=== PATIENT | female | born 1945 | race Caucasian/White ===

== ENCOUNTER 2019-05-20 20:00 | Outpatient (CLI) | payer MEDICARE, OTHER, SELFPAY | END 2019-05-20 20:01 | disposition home or self-care (01) | LOC: SLEEP 05-21 09:20 | PROVIDERS: Family Provider Internal Medicine; PCP Internal Medicine; Visit Provider Internal Medicine | DX: G47.33 Obstructive sleep apnea (adult) (pediatric) (principal) | CPT/HCPCS: 95810; 95811 ==

== ENCOUNTER 2019-06-12 10:15 | Outpatient (CLI) | payer MEDICARE, OTHER, SELFPAY ==
--- NOTE | 2019-06-12 10:23 | XR_ITS ---
WS: [id number] XR chest 2V* [id number] REASON FOR EXAM: asthma FINDINGS: The heart was essentially normal. Arteriosclerotic changes in the arch the aorta were noted . The lung shane are well aerated. There was no hyperaeration or air-trapping changes seen. No pneumon ia, pleural effusion, pulmonary edema, or mass effect. Findings today are similar to a August 26, 2015. The hilum and apices were normal. No osseous abnormalities. XR/XR chest 2V* [id number] IMPRESSION: Negative chest with arteriosclerotic changes.
[2019-06-12 11:02] LABS: Basophils % 0.1 %; Hematocrit 40.2 % (37.0-47.0); Hemoglobin 12.8 g/dL (11.5-15.3); Lymphocytes # 1.4 10^3/uL (0.8-4.8); Lymphocytes % 17.9 %; Mean Corpuscular HGB Conc 31.8 g/dL (30.0-36.0); Mean Corpuscular Hemoglobin 28.8 pg (28.0-34.0); Mean Corpuscular Volume 90.3 fL (81-99); Mean Platelet Volume 9.5 fL (7.4-10.4); Monocytes # 0.7 10^3/uL (0.2-0.9); Monocytes % 8.5 %; Neutrophils # 5.8 10^3/uL (1.8-7.7); Nucleated Red Blood Cells % 0 %; Platelet Count 207 10^3/cmm (130-400); Red Blood Count 4.45 10^6/uL (4.1-5.3); Red Cell Distribution Width 14.1 % (12.1-15.1); White Blood Count 7.9 10^3/uL (4.0-10.0)
[2019-06-13 17:02] LABS: Immunoglobulin E 106 kU/L (<OR=114)
== END 2019-06-12 10:16 | disposition home or self-care (01) ==
LOC: RAD 10:18
PROVIDERS: Family Provider Internal Medicine; PCP Internal Medicine; Visit Provider Internal Medicine Critical Care Medicine
DX: J45.909 Unspecified asthma, uncomplicated (principal)
CPT/HCPCS: 71046; 82785; 85025

== ENCOUNTER 2019-06-19 11:05 | Outpatient (CLI) | payer MEDICARE, OTHER, SELFPAY | END 2019-06-19 11:06 | disposition home or self-care (01) | LOC: ONCMED 11:06 | PROVIDERS: Family Provider Internal Medicine; PCP Internal Medicine; Visit Provider Internal Medicine Hematology & Oncology | DX: Z01.89 Encounter for other specified special examinations (principal) ==

== ENCOUNTER 2019-06-19 11:09 | Outpatient (CLI) | payer MEDICARE, OTHER, SELFPAY ==
--- NOTE | 2019-06-19 11:20 | MM_ITS ---
WS: [id number] BILATERAL DIGITAL DIAGNOSTIC MAMMOGRAM MAMMOGRAPHY WITH CAD CLINICAL INFORMATION: HX OF BREAST CA COMPARISON: June 12, 2018 TECHNIQUE: Bilateral CC, MLO, and ML views. FINDINGS: Scattered fibroglandular densities bilaterally. Stable lucent and punctate calcifications left breast . Stable parenchymal scarring left breast from prior lumpectomy. No suspicious focal mass, asymmetry, calcifications, or architectural distortion. No evidence of kristina gnancy. MM/[place] [id number] IMPRESSION: BI-RADS: 2-Benign FOLLOW UP: 1 Year Follow-up Recommend return to annual diagnostic mammography.
== END 2019-06-19 11:10 | disposition home or self-care (01) ==
LOC: RADSHAW 11:09
PROVIDERS: Family Provider Internal Medicine; PCP Internal Medicine; Visit Provider Internal Medicine
DX: Z85.3 Personal history of malignant neoplasm of breast (principal)
CPT/HCPCS: 77066

== ENCOUNTER → 2019-07-30 14:34 | Outpatient (BNVA) | payer MEDICARE, OTHER, SELFPAY | PROVIDERS: Family Provider Internal Medicine; PCP Internal Medicine; Visit Provider Internal Medicine Rheumatology | DX: M19.041 Primary osteoarthritis, right hand (principal); M19.042 Primary osteoarthritis, left hand; M81.0 Age-related osteoporosis without current pathological fracture; Z79.899 Other long term (current) drug therapy; M79.7 Fibromyalgia | CPT/HCPCS: 99204 ==

== ENCOUNTER 2019-08-13 12:38 | Outpatient (CLI) | payer MEDICARE, OTHER, SELFPAY ==
--- NOTE | 2019-08-13 12:53 | XR_ITS ---
WS: [id number] RIGHT FOOT: 3 VIEW(S) TECHNIQUE: AP, oblique and lateral. HISTORY: osteoarthritis COMPARISON: None available. Joint space narrowing with osteophytes at the tarsometatarsal joints and at the IP joint. No erosions . Mild osteopenia. Normal tarsal/metatarsal alignment. No soft tissue abnormality or bone destruction. XR/XR foot RT min 3V* [id number] IMPRESSION: Osteoarthritis. Most significant on the tarsometatarsal joint line.
--- NOTE | 2019-08-13 12:53 | XR_ITS ---
WS: [id number] DEXA (DUAL ENERGY X-RAY ABSORPTIOMETRY) Bone mineral density was performed using a Kiwi machine. HISTORY: osteoporosis COMPARISON: 09/02/2014 Lumbar spine BMD (L1-L4): 1.078 g/cm2 T score: -0.9 Z score: 0.6 Total hip BMD: Left: 0.903 g/cm2. T score: -0.8 Z score: 0.7 Right: 0.907 g/cm2. T score: -0.8 Z score: 0.7 10 year probability of a major osteoporotic fracture is 22%. Compared to the prior study from 09/02/2014. Lumbar spine bone mineral density has decreased by 5.1%. Bilateral hips bone mineral density has decreased by 2.4%. XR/XR DEXA axial skeleton* [id number] IMPRESSION: NORMAL BONE MINERAL DENSITY based upon the WHO classification for females. Significant decrease in bone mineral density of the lumbar spine and hips since the prior study.
--- NOTE | 2019-08-13 12:53 | XR_ITS ---
WS: [id number] RIGHT HAND: 3 VIEW(S) TECHNIQUE: PA, oblique and lateral. HISTORY: osteoarthritis COMPARISON: 09/13/2016 No acute fracture or dislocation. Advanced degenerative changes at the IP joints, most significant at the second, third and fourth DIP joints. Osteoarthritic changes at the first carpometacarpal joint with a cyst in the lunate. No erosi ons at the metacarpal heads. Mild diffuse osteopenia. XR/XR hand RT min 3V* [id number] IMPRESSION: Advanced osteoarthritis. No significant progression since 2017.
--- NOTE | 2019-08-13 12:53 | XR_ITS ---
WS: [id number] LEFT HAND: 3 VIEW(S) TECHNIQUE: PA, oblique and lateral. HISTORY: osteoarthritis COMPARISON: None available. No acute fracture or dislocation. Diffuse osteopenia. Severe degenerative changes at the first carpometacarpal joint. No subluxations. No erosions. XR/XR hand LT min 3V* [id number] IMPRESSION: Severe osteoarthritis involving the interphalangeal joints and the first carpom etacarpal joint.
--- NOTE | 2019-08-13 12:53 | XR_ITS ---
WS: [id number] LEFT FOOT: 3 VIEW(S) TECHNIQUE: AP, oblique and lateral. HISTORY: osteoarthritis COMPARISON: None available. No acute fracture or dislocation. Mild narrowing of the tarsometatarsal joint line. Joint space narrowing with osteopenia. Interphalang eal joint space narrowing. No soft tissue abnormality or bone destruction. XR/XR foot LT min 3V* [id number] IMPRESSION: Mild osteoarthritis.
== END 2019-08-13 12:39 | disposition home or self-care (01) ==
LOC: RADWPI 12:43
PROVIDERS: Family Provider Internal Medicine; PCP Internal Medicine; Visit Provider Internal Medicine Rheumatology
DX: M81.0 Age-related osteoporosis without current pathological fracture; M19.071 Primary osteoarthritis, right ankle and foot; M19.042 Primary osteoarthritis, left hand; M19.041 Primary osteoarthritis, right hand; M19.072 Primary osteoarthritis, left ankle and foot
CPT/HCPCS: 73130; 73630; 77080

== ENCOUNTER → 2019-08-14 13:57 | Outpatient (BNVA) | payer MEDICARE, OTHER, SELFPAY | PROVIDERS: Family Provider Internal Medicine; PCP Internal Medicine; Visit Provider Specialist | DX: M25.519 Pain in unspecified shoulder (principal) | CPT/HCPCS: 73030 ==

== ENCOUNTER 2019-09-10 10:08 | Outpatient (CLI) | payer MEDICARE, OTHER, SELFPAY ==
--- NOTE | 2019-09-10 10:40 | XR_ITS ---
WS: [id number] LATERAL LUMBAR SPINE: 3 view. Lateral radiographs are performed in upright neutral, flexion and extension to the patient's toleranc e. HISTORY: LOW BACK PAIN COMPARISON: None available. L1 and L2 retrolisthesis by 2 mm. No significant change with flexion and extension. L3 anterolisthesis by 2.8 mm on neutral. During flexion anterolisthesis increases to 5.7 mm and retur ns to 3.2 mm on extension. L4 anterolisthesis by 6.5 mm on neutral. Increases to 8.0 mm on flexion and 5.0 mm on extension. Multilevel mild degenerative disc disease and disc space narrowing with facet arthritis. No fractures . Scattered calcifications within the aorta. XR/XR lumbar spine f/e only [id number] IMPRESSION: 1. Flexion and extension instability at L3 and L4. 2. Mild facet joint arthritis and disc space narrowing. 3. No fracture.
== END 2019-09-10 10:09 | disposition home or self-care (01) ==
LOC: RADWPI 10:16
PROVIDERS: Family Provider Internal Medicine; PCP Internal Medicine; Visit Provider Nurse Practitioner
DX: M54.5 Low back pain (principal); M53.2X6 Spinal instabilities, lumbar region
CPT/HCPCS: 72120

== ENCOUNTER 2019-09-12 09:01 | Outpatient (CLI) | payer MEDICARE, OTHER, SELFPAY ==
--- NOTE | 2019-09-12 | CT_ITS ---
WS: [id number] CT LUMBAR SPINE, noncontrast. HISTORY: BACK PAIN TECHNIQUE: Contiguous 2.5 mm axial imaging are performed. Sagittal and coronal reformats are submitte d and reviewed. All CT scans at [facility] use at least one of these dose optimization te chniques: automated exposure control; mA and/or kV adjustment per patient size (includes targeted exa ms where dose is matched to clinical indication); or iterative reconstruction. IV contrast: None DLP: 2162.29 mGy.cm COMPARISON: None available. Mild LEFT convex curvature the lumbar spine. L2-3 and L4 anterolisthesis by 3.2 mm. There is very min imal disc space narrowing throughout the lumbar spine. No fractures. L1-2: Normal. L2-3: Mild osteophytic ridging and diffuse annular disc bulging. Mild encroachment upon the ventral t hecal sac without significant stenosis. L3-4: Moderate annular disc bulging and osteophytic ridging. Ligamentum flavum hypertrophy and facet joint arthritis. Mild central and subarticular recess stenosis. L4-5: Diffuse annular disc bulging and mild osteophytic ridging. Ligamentum flavum and facet joint ar thritis. Severe central and subarticular recess stenosis. Mild bilateral foraminal stenosis. L5-S1: Mild annular disc bulging with a shallow disc protrusion and osteophytic ridging. Mild central stenosis. Osteophytes encroach into the LEFT foramen causing mild foraminal narrowing. Marked change s involving the facet joints of arthritis. Heavy calcification within the abdominal aorta. No aneurysm. CT/CT lumbar spine wo con* [id number] IMPRESSION: 1. Severe central and bilateral subarticular recess stenosis at L4-5. 2. Mild central and bilateral subarticular recess stenosis at L3-4. Greatest e ncroachment into the RIGHT subarticular recess. 3. Mild LEFT foraminal stenosis at L5-S1 due to disc and osteophyte disease. 4. L3 and L4 anterolisthesis by 3.2 mm. 5. Severe facet joint arthritis bilaterally most significant at L4-5 and L5-S1 .
== END 2019-09-12 09:02 | disposition home or self-care (01) ==
PROVIDERS: Family Provider Internal Medicine; PCP Internal Medicine; Visit Provider Nurse Practitioner
DX: M54.5 Low back pain (principal); M48.061 Spinal stenosis, lumbar region without neurogenic claudication; M25.78 Osteophyte, vertebrae
CPT/HCPCS: 72131

== ENCOUNTER 2019-09-24 08:03 | Outpatient (CLI) | payer MEDICARE, OTHER, SELFPAY ==
[2019-09-24 08:26] LABS: Basophils % 0.5 %; Eosinophils # 0.1 10^3/uL (0.0-0.8); Eosinophils % 2.4 %; Hematocrit 40.9 % (37.0-47.0); Hemoglobin 12.6 g/dL (11.5-15.3); Lymphocytes # 1.4 10^3/uL (0.8-4.8); Lymphocytes % 38.7 %; Mean Corpuscular HGB Conc 30.8 g/dL (30.0-36.0); Mean Corpuscular Hemoglobin 28.6 pg (28.0-34.0); Mean Platelet Volume 9.1 fL (7.4-10.4); Monocytes # 0.2 10^3/uL (0.2-0.9); Monocytes % 6.2 %; Neutrophils # 1.9 10^3/uL (1.8-7.7); Neutrophils % 51.7 %; Nucleated Red Blood Cells % 0 %; Platelet Count 167 10^3/cmm (130-400); Red Cell Distribution Width 16.2 % (12.1-15.1); White Blood Count 3.7 10^3/uL (4.0-10.0)
[2019-09-24 08:50] LABS: Alanine Aminotransferase 22 U/L (0-33); Albumin Level 4.1 g/dL (3.5-5.2); Alkaline Phosphatase 67 IU/L (35-105); Anion Gap 18.1 (5-19); Aspartate Amino Transferase 15 U/L (0-32); Blood Urea Nitrogen 14 mg/dL (8-23); Calcium 9.5 mg/dL (8.5-10.5); Carbon Dioxide 24 mmol/L (22-29); Chloride 103 mmol/L (98-107); Globulin 3.2 g/dL (1.3-4.6); Glucose 134 mg/dL (65-115); Osmolality Calculated 290 mOsm/kg (285-295); Potassium 4.1 mmol/L (3.5-5.1); Sodium 141 mmol/L (136-145); Total Bilirubin 0.4 mg/dL (0.15-1.2); Total Protein 7.3 g/dL (6.6-8.7)
--- NOTE | 2019-09-24 17:43 | ONC FU_ITS ---
Dr. Godinez follow up note Patient: Yanira Cespedes Unit #: [id number]: 1945 Dicatated By: Eran Godinez M.D.Date of Visit:Sep 24, 2019 Onc Med Follow-up/Prog Note History of Present Illness: This is 73 year old woman with invasive ductal carcinoma of the left breast, stage IA (T1b, N0, M0), ER/FL positive and HER-2/mayuri negative. She had presented with an abnormal routine mammogram on 03/24/14. There were 2 areas of abnormal calcifications at 12:00 and 1: 00 position of the left breast. The biopsy of the dominant lesion was performed on 06/06/2014. 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 On 06/26/2014 she was taken to surgery by Dr. Alvarez for left breast lumpectomy and excisional biopsy of the additional breast focus, as well as left axillary sentinel lymph node biopsy. The surgical pathology showed 8mm invasive ductal carcinoma with multifocal tumor growth, and mixed ductal and lobular pattern. Anterior margins were involved. One sentinel lymph node biopsy was negative for metastatic disease. An additional breast focus excisional biopsy was benign. On 07/10/14 she underwent re-excision, and no further malignancy was identified. Her surgery was complicated with seroma aspiration, and mastitis, requiring antibiotics. She was first seen by Dr. Mercado on 07/24/2014. Her Oncotype DX score returned 14, corresponding to 9% risk of distant recurrence after completion of hormonal therapy in the next 10 years. No adjuvant chemotherapy was recommended. The patient received adjuvant radiation treatment, completed in September 2014. She began on adjuvant Arimidex therapy in July of 2014. DEXA scan normal on 09/02/2014. Her Arimidex was stopped in November 2015 because of joint pain and vaginal bleeding. She did have followup with Dr. Saavedra for vaginal bleeding. She had a cervical biopsy and Dr. Saavedra recommended having transvaginal pelvic ultrasounds every 3 months, although she has not had these done. She has had no further vaginal bleeding.And Arimidex was restarted on 04/29/2017 Underwent hysterectomy No oophorectomy on 03/29/2017 and it showed cystocele Follow-up mammogram done on June 19, 2019 showed BI-RADS 2, benign Came for follow-up, denies any specific complaints except chronic shoulder pain and back pain but no worsening, no hot flashes, no new symptoms tolerating Arimidex/vitamin D/calcium well otherwise Medications: Amitiza 1 (24 mcg) Capsule Oral daily, Anastrozole 1 Tablet (of 1 mg) Oral daily, Antipyrine-Benzocaine 1 (5.5-1.4 %) Solution Otic daily, Atrovent 1 (0.03 %) Solution Nasal daily, Brovana Nebulization solution Inhalation daily, Budesonide 1 (0.5 mg/2mL) Suspension Inhalation daily, Calcium 1 (500 mg) Tablet Oral b.i.d., Citalopram Hydrobromide 1 (10 mg) Tablet Oral daily, Claritin 1 (10 mg) Capsule Oral daily, Dexamethasone Sodium Phosphate Injection, Docusate Sodium 1 Tablet (of 100 mg) Oral daily, flax seed and omega 1 Tablet daily, Flax Seed Oil 1 (1000 mg) Capsule Oral daily, Gabapentin (300 mg) Capsule Oral Take as Directed, Ipratropium [place] 1 (0.03 %) Solution Nasal daily, Lidocaine HCl 1.5 mL (of 1 %) Injection, Losartan Potassium 1 Tablet (of 50 mg) Oral daily, Montelukast Sodium 1 (10 mg) Tablet Oral at bedtime PRN, Mucus Relief ER Tablet SR 12 HR Oral daily PRN, NexIUM 1 (40 mg) Capsule Delayed Release Oral daily, Nortriptyline HCl 1 (25 mg) Capsule Oral daily, [place] 3 1 (1000 mg) Capsule Oral daily, oxyCODONE-Acetaminophen 0.5 - 1 Tablet (of 5-325 mg) Oral t.i.d., ProAir HFA Aerosol, solution Inhalation, Probiotic 1 Capsule Oral daily, Ropivacaine HCl 1.5 mL (of 5 mg/mL) Injection, Triamcinolone Acetonide Cream Topical PRN, Ventolin HFA 1 (108 (90 base) mcg/act) Aerosol, solution Inhalation four times a day PRN, Verapamil HCl ER 1 (180 mg) Tablet, controlled release Oral daily Allergies: Codeine and PCN. Review of Systems: Constitutional - Appetite is good and weight is stable. No fever, chills, or night sweats. Patient reports frequent hot flashes. Energy level is fair, ENMT - No sinus congestion/drainage. No mouth sores. No sore throat or difficulty swallowing, Hematologic/Lymphatic - No abnormal bruising or bleeding, Respiratory - No shortness of breath. No cough. No pleuritic pain or hemoptysis, Cardiovascular - No angina pain. No palpitations, Gastrointestinal - No nausea or vomiting. No heartburn or acid reflux. No diarrhea or constipation. No blood in the stool or black stools, Genitourinary (F) - No dysuria or hematuria. No urinary frequency. No urgency or incontinence, Musculoskeletal - No joint or bone pain, Neurologic - No headache , occasional dizziness. No numbness/paresthesias or other focal neurologic symptoms, Psychiatric - No anxiety or depression. No insomnia. Vital Signs: Performed on Sep 24, 2019 09:06 Height - 62.00 in Weight - 167.0 lbs (HIGH) BSA - 1.77 sq.m BMI - 30.54 (HIGH) Temperature - 98.3 F (LOW) Pulse - 86 /min Respiration - 22 /min BP - 131/78 mm(hg) O2 Sat - 96 % Pain - 8 Performance Status: 1 - No physically strenuous activity, but ambulatory and able to carry out light or sedentary work (e.g. office work, light house work). (ECOG) Physical Examination: Respiratory - Lungs are clear, Cardiovascular - Regular rate and rhythm of heart, Gastrointestinal - Abdomen soft, bowel sounds present, Extremities - No visible edema. Lab/Imaging: Impression: 1. Patient with low-grade invasive carcinoma of the left breast, stage IA(T1b, N0, M0), ER/FL positive, and HER-2 negative. She underwent lumpectomy with sentinel lymph node biopsy on 06/26/2014, followed by reexcision on 07/10/14 which was negative for residual malignancy. Her Oncotype DX score returned low at 14, corresponding to 9% risk of distant recurrence after completion of hormonal therapy in the next 10 years. No adjuvant chemotherapy was recommended. 2. She was given radiation to the left breast, completed in September 2014. 3. Hormonal therapy with aromatase inhibitors for 5 years, Arimidex 1 mg daily began in July 2014.Patient did not take Arimidex from November 2015 till April 2017. So there was a 16 months gap so in that case she will finish her 5 years of hormonal therapy in January 2021 instead of July 2019 Baseline bone density was normal. Her other medical illnesses include: 4. Hypertension. 5. Hyperlipidemia. 6. COPD. 7. GERD. 8. Degenerative arthritis. 9. Fibromyalgia. 10. Anxiety/depression. When seen her in November 2015, she had reported significant increase in musculoskeletal pain. At that time she was also having vaginal bleeding. I did have her stop Arimidex. It is unclear to what extent the joint pain may have improved since she's been off the medication. She did undergo right total knee arthroplasty in March. She has had a good recovery from that surgery. 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 Patient did not take Arimidex for about 1 year and last month on April, she was restarted on Arimidex and now she is tolerating well. Plan: Discussed with patient regarding her labs white blood count 3.7 hemoglobin 12.6 crit 40.9 platelets 167,000 ANC 1900 CMP within normal limits and follow-up mammogram which was benign Clinically, patient is doing well, with no signs symptom suggestive of recurrence of disease. Tolerating adjuvant therapy with Arimidex/vitamin D/calcium well. Will continue with same and she will return to clinic in 6 months with CBC CMP Mild leukopenia, considering her age could be due to underlying myelodysplasia, will continue to monitor. Signed By: Eran Godinez M.D. <<Signature on File>>
== END 2019-09-24 08:04 | disposition home or self-care (01) ==
LOC: ONCMED 08:07
PROVIDERS: PCP Internal Medicine; Visit Provider Internal Medicine Hematology & Oncology
DX: C50.412 Malignant neoplasm of upper-outer quadrant of left female breast (principal); Z17.0 Estrogen receptor positive status [ER+]; Z79.811 Long term (current) use of aromatase inhibitors; I10 Essential (primary) hypertension; E78.5 Hyperlipidemia, unspecified; J44.9 Chronic obstructive pulmonary disease, unspecified; K21.9 Gastro-esophageal reflux disease without esophagitis; M19.90 Unspecified osteoarthritis, unspecified site; M79.7 Fibromyalgia; F41.8 Other specified anxiety disorders
CPT/HCPCS: 36415; 80053; 85025; 99214

== ENCOUNTER 2020-03-03 08:29 | Outpatient (RCR) | payer MEDICARE, OTHER, SELFPAY | END 2020-03-09 23:59 | disposition home or self-care (01) | LOC: SPT 08:29 | PROVIDERS: PCP Internal Medicine; Referring Provider Specialist; Visit Provider Specialist | DX: R42 Dizziness and giddiness (principal) | CPT/HCPCS: 95992; 97162 ==

== ENCOUNTER 2020-03-10 06:00 | Outpatient (RCR) | payer MEDICARE, OTHER, SELFPAY | END 2020-04-09 23:59 | disposition home or self-care (01) | LOC: SPT 06:00 | PROVIDERS: PCP Internal Medicine; Referring Provider Specialist; Visit Provider Specialist | DX: R42 Dizziness and giddiness (principal) | CPT/HCPCS: 97112 ==

== ENCOUNTER 2020-04-21 06:00 | Outpatient (RCR) | payer MEDICARE, OTHER, SELFPAY | END 2020-05-10 23:59 | disposition home or self-care (01) | LOC: SPT 06:00 | PROVIDERS: PCP Internal Medicine; Referring Provider Specialist; Visit Provider Specialist | DX: R42 Dizziness and giddiness (principal) | CPT/HCPCS: 97112 ==

== ENCOUNTER 2020-05-11 13:17 | Outpatient (CLI) | payer MEDICARE, OTHER, SELFPAY ==
[2020-05-11 14:16] LABS: Basophils % 0.6 %; Eosinophils # 0.2 10^3/uL (0.0-0.8); Eosinophils % 3.3 %; Hematocrit 39.4 % (37.0-47.0); Hemoglobin 12.2 g/dL (11.5-15.3); Lymphocytes # 1.3 10^3/uL (0.8-4.8); Lymphocytes % 24.3 %; Mean Corpuscular Volume 90.4 fL (81-99); Mean Platelet Volume 8.9 fL (7.4-10.4); Monocytes # 0.5 10^3/uL (0.2-0.9); Monocytes % 10.3 %; Neutrophils # 3.14 10^3/uL (1.8-7.7); Neutrophils % 60.9 %; Nucleated Red Blood Cells % 0 %; Platelet Count 200 10^3/cmm (130-400); Red Blood Count 4.36 10^6/uL (4.1-5.3); Red Cell Distribution Width 15.9 % (12.1-15.1); White Blood Count 5.2 10^3/uL (4.0-10.0)
[2020-05-11 15:07] LABS: Alanine Aminotransferase 15 U/L (0-33); Albumin Level 4.2 g/dL (3.5-5.2); Alkaline Phosphatase 82 IU/L (35-105); Anion Gap 11.3 (5-19); Aspartate Amino Transferase 13 U/L (0-32); Blood Urea Nitrogen 17 mg/dL (8-23); Calcium 9.3 mg/dL (8.5-10.5); Carbon Dioxide 28 mmol/L (22-29); Chloride 102 mmol/L (98-107); Globulin 3.1 g/dL (1.3-4.6); Glucose 93 mg/dL (65-115); Osmolality Calculated 285 mOsm/kg (285-295); Potassium 4.3 mmol/L (3.5-5.1); Sodium 137 mmol/L (136-145); Total Bilirubin 0.3 mg/dL (0.15-1.2); Total Protein 7.3 g/dL (6.6-8.7)
[2020-05-11 15:12] LABS: Erythrocyte Sedimentation Rate 30 mm/hr (0-15)
--- NOTE | 2020-05-11 16:59 | ONC FU_ITS ---
Dr. Godinez follow up note Patient: Yanira Cespedes Unit #: [id number]: 1945 Dicatated By: Eran Godinez M.D.Date of Visit:May 11, 2020 Onc Med Follow-up/Prog Note History of Present Illness: This is 73 year old woman with invasive ductal carcinoma of the left breast, stage IA (T1b, N0, M0), ER/PA positive and HER-2/mayuri negative. She had presented with an abnormal routine mammogram on 03/24/14. There were 2 areas of abnormal calcifications at 12:00 and 1: 00 position of the left breast. The biopsy of the dominant lesion was performed on 06/06/2014. 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 On 06/26/2014 she was taken to surgery by Dr. Alvarez for left breast lumpectomy and excisional biopsy of the additional breast focus, as well as left axillary sentinel lymph node biopsy. The surgical pathology showed 8mm invasive ductal carcinoma with multifocal tumor growth, and mixed ductal and lobular pattern. Anterior margins were involved. One sentinel lymph node biopsy was negative for metastatic disease. An additional breast focus excisional biopsy was benign. On 07/10/14 she underwent re-excision, and no further malignancy was identified. Her surgery was complicated with seroma aspiration, and mastitis, requiring antibiotics. She was first seen by Dr. Mercado on 07/24/2014. Her Oncotype DX score returned 14, corresponding to 9% risk of distant recurrence after completion of hormonal therapy in the next 10 years. No adjuvant chemotherapy was recommended. The patient received adjuvant radiation treatment, completed in September 2014. She began on adjuvant Arimidex therapy in July of 2014. DEXA scan normal on 09/02/2014. Her Arimidex was stopped in November 2015 because of joint pain and vaginal bleeding. She did have followup with Dr. Saavedra for vaginal bleeding. She had a cervical biopsy and Dr. Saavedra recommended having transvaginal pelvic ultrasounds every 3 months, although she has not had these done. She has had no further vaginal bleeding.And Arimidex was restarted on 04/29/2017 Underwent hysterectomy No oophorectomy on 03/29/2017 and it showed cystocele Follow-up mammogram done on June 19, 2019 showed BI-RADS 2, benign Came for follow-up, denies any specific complaints, no fever chills, no nausea or vomiting, no diarrhea constipation, no hot flashes, tolerating Arimidex well Medications: Amitiza 1 (24 mcg) Capsule Oral daily, Anastrozole 1 Tablet (of 1 mg) Oral daily, Antipyrine-Benzocaine 1 (5.5-1.4 %) Solution Otic daily, Atrovent 1 (0.03 %) Solution Nasal daily, Brovana Nebulization solution Inhalation daily, Budesonide 1 (0.5 mg/2mL) Suspension Inhalation daily, Calcium 1 (500 mg) Tablet Oral b.i.d., Citalopram Hydrobromide 1 (10 mg) Tablet Oral daily, Claritin 1 (10 mg) Capsule Oral daily, Dexamethasone Sodium Phosphate Injection, Docusate Sodium 1 Tablet (of 100 mg) Oral daily, flax seed and omega 1 Tablet daily, Flax Seed Oil 1 (1000 mg) Capsule Oral daily, Gabapentin (300 mg) Capsule Oral Take as Directed, Ipratropium [place] 1 (0.03 %) Solution Nasal daily, Lidocaine HCl 1.5 mL (of 1 %) Injection, Losartan Potassium 1 Tablet (of 50 mg) Oral daily, Montelukast Sodium 1 (10 mg) Tablet Oral at bedtime PRN, Mucus Relief ER Tablet SR 12 HR Oral daily PRN, NexIUM 1 (40 mg) Capsule Delayed Release Oral daily, Nortriptyline HCl 1 (25 mg) Capsule Oral daily, [place] 3 1 (1000 mg) Capsule Oral daily, oxyCODONE-Acetaminophen 0.5 - 1 Tablet (of 5-325 mg) Oral t.i.d., ProAir HFA Aerosol, solution Inhalation, Probiotic 1 Capsule Oral daily, Ropivacaine HCl 1.5 mL (of 5 mg/mL) Injection, Triamcinolone Acetonide Cream Topical PRN, Ventolin HFA 1 (108 (90 base) mcg/act) Aerosol, solution Inhalation four times a day PRN, Verapamil HCl ER 1 (180 mg) Tablet, controlled release Oral daily Allergies: Codeine and PCN. Review of Systems: Constitutional - Appetite is good and weight is stable. No fever, chills, or night sweats. Patient reports frequent hot flashes. Energy level is fair, ENMT - No sinus congestion/drainage. No mouth sores. No sore throat or difficulty swallowing, Hematologic/Lymphatic - No abnormal bruising or bleeding, Respiratory - No shortness of breath. No cough. No pleuritic pain or hemoptysis, Cardiovascular - No angina pain. No palpitations, Gastrointestinal - No nausea or vomiting. No heartburn or acid reflux. No diarrhea or constipation. No blood in the stool or black stools, Genitourinary (F) - No dysuria or hematuria. No urinary frequency. No urgency or incontinence, Musculoskeletal - No joint or bone pain, Neurologic - No headache , occasional dizziness. No numbness/paresthesias or other focal neurologic symptoms, Psychiatric - No anxiety or depression. No insomnia. Vital Signs: Performed on May 11, 2020 14:52 Height - 62.00 in Weight - 158.6 lbs (LOW) BSA - 1.73 sq.m BMI - 29.01 Temperature - 98.2 F (LOW) Pulse - 93 /min Respiration - 18 /min BP - 154/78 mm(hg) (HIGH) O2 Sat - 96 % Pain - 8 Fatigue - 6 Performance Status: 1 - No physically strenuous activity, but ambulatory and able to carry out light or sedentary work (e.g. office work, light house work). (ECOG) Physical Examination: Respiratory - Lungs are clear to auscultation, Cardiovascular - Regular rate and rhythm of heart, Gastrointestinal - Soft, bowel sounds present, Extremities - No visible edema. Lab/Imaging: Most recent lab results are not available for this patient. Impression: 1. Patient with low-grade invasive carcinoma of the left breast, stage IA(T1b, N0, M0), ER/PA positive, and HER-2 negative. She underwent lumpectomy with sentinel lymph node biopsy on 06/26/2014, followed by reexcision on 07/10/14 which was negative for residual malignancy. Her Oncotype DX score returned low at 14, corresponding to 9% risk of distant recurrence after completion of hormonal therapy in the next 10 years. No adjuvant chemotherapy was recommended. 2. She was given radiation to the left breast, completed in September 2014. 3. Hormonal therapy with aromatase inhibitors for 5 years, Arimidex 1 mg daily began in July 2014.Patient did not take Arimidex from November 2015 till April 2017. So there was a 16 months gap so in that case she will finish her 5 years of hormonal therapy in January 2021 instead of July 2019 Baseline bone density was normal. Her other medical illnesses include: 4. Hypertension. 5. Hyperlipidemia. 6. COPD. 7. GERD. 8. Degenerative arthritis. 9. Fibromyalgia. 10. Anxiety/depression. When seen her in November 2015, she had reported significant increase in musculoskeletal pain. At that time she was also having vaginal bleeding. I did have her stop Arimidex. It is unclear to what extent the joint pain may have improved since she's been off the medication. She did undergo right total knee arthroplasty in March. She has had a good recovery from that surgery. She had been seeing Dr. 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 Patient did not take Arimidex for about 1 year and last month on April, she was restarted on Arimidex and now she is tolerating well. Plan: Discussed with patient regarding her labs white blood count 5.2 hemoglobin 12.2 hematocrit 39.4 platelets 200,000, CMP pending Clinically, patient doing well with no new signs symptom suggestive of recurrence of disease, tolerating adjuvant therapy with Arimidex/vitamin D/calcium well, will continue with same and return to clinic in January 2021, by that time she will conclude total 5-year of adjuvant hormonal therapy Signed By: Eran Godinez M.D. <<Signature on File>>
[2020-05-12 02:31] LABS: 25 Hydroxy Vitamin D 31 ng/mL (30-100)
== END 2020-05-11 13:18 | disposition home or self-care (01) ==
PROVIDERS: PCP Internal Medicine; Visit Provider Internal Medicine Hematology & Oncology
DX: C50.412 Malignant neoplasm of upper-outer quadrant of left female breast (principal); E55.9 Vitamin D deficiency, unspecified; M79.7 Fibromyalgia; M19.90 Unspecified osteoarthritis, unspecified site; Z17.0 Estrogen receptor positive status [ER+]; Z92.3 Personal history of irradiation; Z79.811 Long term (current) use of aromatase inhibitors
CPT/HCPCS: 36415; 80053; 82306; 85025; 85651; G0463

== ENCOUNTER → 2020-06-22 12:15 | Outpatient (BNVA) | payer MEDICARE, OTHER, SELFPAY | PROVIDERS: PCP Internal Medicine; Visit Provider Specialist | DX: M17.0 Bilateral primary osteoarthritis of knee (principal) | CPT/HCPCS: 73560; 73565 ==

== ENCOUNTER 2020-06-28 13:50 | Emergency (ER) | payer MEDICARE, OTHER, SELFPAY ==
[2020-06-28 13:59] VITALS: BP 134/79; PULSE 93; RESP 18; TEMP 36.4; O2SAT 94; BMI 29.2
--- NOTE | 2020-06-28 14:10 | W.ED.SKABFB ---
HPI - Skin/Abscess/Foreign Bdy General: Chief complaint: General Medical Stated complaint: rash under left arm Time Seen by Provider: 06/28/20 14:10 Source: patient Mode of arrival: ambulatory Limitations: no limitations History of Present Illness: HPI narrative: Patient is a very nice 75-year-old female who presents to ED today with complaint of a rash under her left axilla that she noticed this morning. Patient tells me the rash feels identical to when she had shingles back in 2015 on the left side of her back. She has no other complaints at this time. complaint: rash Onset (ago): hour(s) Tetanus up to date: yes Location: LUE (axilla) Severity: mild Quality: burning Pain Consistency: constant Relieving factors: none Exacerbating factors: none Context: none Associated symptoms: Reports no associated symptoms; Deny chills, fever(s), nausea or vomiting Treatments prior to arrival: none Review of Systems Const: Denies: fever(s), chills, body aches, fatigue or malaise Eyes: Denies: change in vision, blurry vision, photophobia or eye discharge Card: Denies: chest pain Resp: Denies: dyspnea GI: Denies: nausea or vomiting Musc: Denies: neck pain, back pain, extremity pain, extremity swelling, joint pain or joint swelling Skin/Breast: Reports: rash Neuro: Denies: headache(s), numbness in extremities, weakness in extremities, sensory changes, dizziness or confusion PFSH ED PFSH: Medical History Asthma Breast CA Degenerative joint disease, shoulder, left Depression Diabetes Fibromyalgia HTN (hypertension) Hyperlipidemia MELANIA on CPAP Osteoarthritis Osteoarthritis of both hands Osteoarthritis of both knees Surgical History History of appendectomy Hx of breast surgery Cancer c radiation for 6 weeks 2014 S/P hysterectomy S/P lumpectomy of breast S/P sinus surgery Family History Sister Hypertension Stroke Cancer BREAST Mother Diabetes Cancer BREAST Grandfather CAD (coronary artery disease) PATERNAL Grandmother CAD (coronary artery disease) PATERNAL Father Stroke Other Family history of premature coronary artery disease Hyperlipidemia Lung disease Rheumatoid arthritis Denies family history of Systemic lupus erythematosus (SLE) in adult Social History Smoking and tobacco status: never smoked Second hand smoke exposure: Yes Smoking risk assessment/counseling performed?: No Alcohol intake: never Desire information about alcohol rehabilitation?: No Counseling given: No Desire information about substance/drug rehabilitation?: No Counseling given: No Lives independently: Yes Household members: none Marital status: / Current occupational status: retired History of recent travel: No Current gender identity: Female Physical Exam Const: COMMON NORMALS: no acute distress, average body habitus, patient oriented x3, no limitations, healthy appearing, alert and well nourished GENERAL APPEARANCE: cooperative ORIENTATION/CONSCIOUSNESS: Yes awake, Yes oriented to person, Yes oriented to place and Yes oriented to time HENMT: COMMON NORMALS: normocephalic and atraumatic HEAD & SCALP: normocephalic and atraumatic Extremity: NARRATIVE EXTREMITY EXAM: see skin examination GENERAL: Yes normal exam except as noted Neuro: JACQUES COMA SCALE: document GCS findings Jacques coma scale eye opening: Spontaneous Sellers coma scale verbal response: Orientated Jacques coma scale motor response: Obey commands Sellers coma scale total score: 15 COMMON NORMALS: patient oriented x3, CN's II-XII intact bilaterally, moves all extremities, no focal motor deficits, no sensory deficits noted and gait normal SENSORIUM/ORIENTATION: Yes alert, Yes oriented to person, Yes oriented to place and Yes oriented to time Skin: NARRATIVE SKIN EXAM: clustered area of erythematous lesions to L axillary region; there are no vesicular formations at the moment but rash did just begin today per patient; rash could certainly represent a herpes zoster infection Course Vital Signs: Vital signs: Vital Signs Temperature 97.6 F 06/28/20 13:59 Pulse Rate 84 06/28/20 14:29 Respiratory Rate 19 H 06/28/20 14:29 Blood Pressure 136/78 06/28/20 14:29 Pulse Oximetry 96 06/28/20 14:29 Discharge Plan Discharge Patient Disposition: Home Clinical Impression: Shingles Qualifiers: Herpes zoster complications: without complications Qualified Code(s): B02.9 - Zoster without complications Condition: Stable Prescriptions: New valacyclovir 1 gram tablet 1,000 mg PO TID 7 Days Qty: 21 RF: 0 No Action verapamil 180 mg capsule,ext rel. pellets 24 hr 180 mg PO DAILY RF: 0 albuterol sulfate [Ventolin HFA] 90 mcg/actuation HFA aerosol inhaler 2 puff INHALATION Q6H PRNRF: 0 calcium carbonate PO DAILY RF: 0 gabapentin 300 mg capsule 300 mg PO TID RF: 0 anastrozole 1 mg tablet 1 mg PO DAILY RF: 0 losartan 50 mg tablet 50 mg PO DAILY RF: 0 citalopram 10 mg tablet 10 mg PO DAILY RF: 0 senna 8.6 mg capsule 8.6 mg PO BID PRNRF: 0 lactobacillus combination no.8 PO DAILY RF: 0 loratadine [Claritin] 10 mg tablet 10 mg PO BID RF: 0 nortriptyline 25 mg capsule 25 mg PO .HS RF: 0 fluticasone propionate [Allergy Relief (fluticasone)] 50 mcg/actuation spray,suspension 1 spray INTRANASAL DAILY RF: 0 oxycodone-acetaminophen [Percocet] 5-325 mg tablet 0.5 tab PO TID PRNRF: 0 guaifenesin [Mucinex] 600 mg tablet extended release 12hr 600 mg PO Q12H PRNRF: 0 Magnesium Complex 300 mg magnesium tablet PO BID RF: 0 pantoprazole 40 mg tablet,delayed release (DR/EC) 40 mg PO DAILY RF: 0 diclofenac sodium 1 % gel 2 gm TOPICAL QID Qty: 100 RF: 0 Symbicort 160-4.5 mcg/actuation HFA aerosol inhaler 2 puff INHALATION BID 90 Days Qty: 30.6 RF: 1 Incruse Ellipta 62.5 mcg/actuation blister with device 1 inh INHALATION DAILY Qty: 30 RF: 3 Discharge Orders: Discharge ED (Routine); Ordered 06/28/20 Ordered By: Carmen Ybarra Referrals: Sondra Ndiaye MD [Primary Care Provider] - Patient Instructions: Herpes Zoster (ED), Shingles Coding Level of Care Code 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
[2020-06-28 14:29] VITALS: BP 136/78; PULSE 84; RESP 19; O2SAT 96
== END 2020-06-28 14:30 | disposition home or self-care (01) ==
PROVIDERS: Emergency Provider Physician Assistant; PCP Internal Medicine
DX: B02.9 Zoster without complications (principal); Z85.3 Personal history of malignant neoplasm of breast; E11.9 Type 2 diabetes mellitus without complications; I10 Essential (primary) hypertension; E78.5 Hyperlipidemia, unspecified; Z92.3 Personal history of irradiation; Z77.22 Contact with and (suspected) exposure to environmental tobacco smoke (acute) (chronic)
CPT/HCPCS: 99282

== ENCOUNTER 2020-07-03 10:41 | Outpatient (CLI) | payer MEDICARE, OTHER, SELFPAY ==
--- NOTE | 2020-07-03 10:48 | MM_ITS ---
WS: [id number] DIAGNOSTIC BILATERAL DIGITAL MAMMOGRAM WITH CAD HISTORY: HX OF BREAST CA COMPARISON: 06/19/2019 and 06/12/2018 TECHNIQUE: Bilateral craniocaudad, mediolateral oblique, and mediolateral views are submitted. Comput er aided detection utilized. Breast composition: There are scattered areas of fibroglandular density. Volume loss and postsurgical scarring and distortion in the LEFT breast at 12:00. Benign, dystrophic calcifications are reidentif ied and increasing in size and number. No new suspicious cluster of calcifications. MM/[place] [id number] IMPRESSION: BI-RADS: 2-Benign FOLLOW UP: 1 Year Follow-up
== END 2020-07-03 10:42 | disposition home or self-care (01) ==
LOC: RADSHAW 10:45
PROVIDERS: PCP Internal Medicine; Visit Provider Internal Medicine
DX: Z85.3 Personal history of malignant neoplasm of breast (principal)
CPT/HCPCS: 77066

== ENCOUNTER 2021-02-22 13:27 | Outpatient (CLI) | payer MEDICARE, OTHER, SELFPAY ==
[2021-02-22 14:17] LABS: Basophils % 0.5 %; Eosinophils # 0.2 10^3/uL (0.0-0.8); Eosinophils % 2.7 %; Hematocrit 38.7 % (37.0-47.0); Hemoglobin 12.3 g/dL (11.5-15.3); Lymphocytes # 1.5 10^3/uL (0.8-4.8); Lymphocytes % 24.8 %; Mean Corpuscular HGB Conc 31.8 g/dL (30.0-36.0); Mean Corpuscular Hemoglobin 29.6 pg (28.0-34.0); Mean Corpuscular Volume 93.3 fl (81-99); Mean Platelet Volume 9.1 fL (7.4-10.4); Monocytes # 0.7 10^3/uL (0.2-0.9); Monocytes % 10.9 %; Neutrophils # 3.59 10^3/uL (1.8-7.7); Neutrophils % 60.3 %; Nucleated Red Blood Cells % 0 %; Platelet Count 199 10^3/cmm (130-400); Red Blood Count 4.15 10^6/uL (4.1-5.3); Red Cell Distribution Width 15.4 % (12.1-15.1)
[2021-02-22 14:33] LABS: Alanine Aminotransferase 16 U/L (0-33); Albumin Level 4.1 g/dL (3.5-5.2); Alkaline Phosphatase 74 IU/L (35-105); Anion Gap 16.6 (5-19); Aspartate Amino Transferase 14 U/L (0-32); Blood Urea Nitrogen 11 mg/dL (8-23); Calcium 9.5 mg/dL (8.5-10.5); Carbon Dioxide 25 mmol/L (22-29); Chloride 102 mmol/L (98-107); Globulin 3.1 g/dL (1.3-4.6); Glucose 96 mg/dL (65-115); Osmolality Calculated 287 mOsm/kg (285-295); Potassium 4.6 mmol/L (3.5-5.1); Sodium 139 mmol/L (136-145); Total Bilirubin 0.3 mg/dL (0.15-1.2); Total Protein 7.2 g/dL (6.6-8.7)
--- NOTE | 2021-02-22 17:34 | ONC FU_ITS ---
Dr. Godinez follow up note Patient: Yanira Cespedes Unit #: [id number]: 1945 Dicatated By: Eran Godinez M.D.Date of Visit:Feb 22, 2021 Onc Med Follow-up/Prog Note History of Present Illness: This is 75 year old woman with invasive ductal carcinoma of the left breast, stage IA (T1b, N0, M0), ER/TX positive and HER-2/mayuri negative. She had presented with an abnormal routine mammogram on 03/24/14. There were 2 areas of abnormal calcifications at 12:00 and 1: 00 position of the left breast. The biopsy of the dominant lesion was performed on 06/06/2014. It showed low grade mixed ductal and lobular invasive carcinoma, with prognostic profile ER 98%, TX 96%, HER-2/mayuri by IHC 1+, FISH not amplified at 0.7. On 06/26/2014 she was taken to surgery by Dr. Alvarez for left breast lumpectomy and excisional biopsy of the additional breast focus, as well as left axillary sentinel lymph node biopsy. The surgical pathology showed 8mm invasive ductal carcinoma with multifocal tumor growth, and mixed ductal and lobular pattern. Anterior margins were involved. One sentinel lymph node biopsy was negative for metastatic disease. An additional breast focus excisional biopsy was benign. On 07/10/14 she underwent re-excision, and no further malignancy was identified. Her surgery was complicated with seroma aspiration, and mastitis, requiring antibiotics. She was first seen by Dr. Mercado on 07/24/2014. Her Oncotype DX score returned 14, corresponding to 9% risk of distant recurrence after completion of hormonal therapy in the next 10 years. No adjuvant chemotherapy was recommended. The patient received adjuvant radiation treatment, completed in September 2014. She began on adjuvant Arimidex therapy in July of 2014. DEXA scan normal on 09/02/2014. Her Arimidex was stopped in November 2015 because of joint pain and vaginal bleeding. She did have followup with Dr. Saavedra for vaginal bleeding. She had a cervical biopsy and Dr. Saavedra recommended having transvaginal pelvic ultrasounds every 3 months, although she has not had these done. She has had no further vaginal bleeding.And Arimidex was restarted on 04/29/2017 Underwent hysterectomy No oophorectomy on 03/29/2017 and it showed cystocele Follow-up mammogram done on June 19, 2019 showed BI-RADS 2, benign Came for follow-up, denies any specific complaints, no fever chills, no nausea or vomiting, no diarrhea constipation, no melena or hematochezia, no hemoptysis hematemesis, no new bony pains, patient has completed 5 years of adjuvant therapy with Arimidex Medications: Amitiza 1 (24 mcg) Capsule Oral daily, Anastrozole 1 Tablet (of 1 mg) Oral daily, Antipyrine-Benzocaine 1 (5.5-1.4 %) Solution Otic daily, Atrovent 1 (0.03 %) Solution Nasal daily, Brovana Nebulization solution Inhalation daily, Budesonide 1 (0.5 mg/2mL) Suspension Inhalation daily, Calcium 1 (500 mg) Tablet Oral b.i.d., Citalopram Hydrobromide 1 (10 mg) Tablet Oral daily, Claritin 1 (10 mg) Capsule Oral daily, Dexamethasone Sodium Phosphate Injection, Docusate Sodium 1 Tablet (of 100 mg) Oral daily, flax seed and omega 1 Tablet daily, Flax Seed Oil 1 (1000 mg) Capsule Oral daily, Gabapentin (300 mg) Capsule Oral Take as Directed, Ipratropium [place] 1 (0.03 %) Solution Nasal daily, Lidocaine HCl 1.5 mL (of 1 %) Injection, Losartan Potassium 1 Tablet (of 50 mg) Oral daily, Montelukast Sodium 1 (10 mg) Tablet Oral at bedtime PRN, Mucus Relief ER Tablet SR 12 HR Oral daily PRN, NexIUM 1 (40 mg) Capsule Delayed Release Oral daily, Nortriptyline HCl 1 (25 mg) Capsule Oral daily, Essie 3 1 (1000 mg) Capsule Oral daily, oxyCODONE-Acetaminophen 0.5 - 1 Tablet (of 5-325 mg) Oral t.i.d., ProAir HFA Aerosol, solution Inhalation, Probiotic 1 Capsule Oral daily, Ropivacaine HCl 1.5 mL (of 5 mg/mL) Injection, Triamcinolone Acetonide Cream Topical PRN, Ventolin HFA 1 (108 (90 base) mcg/act) Aerosol, solution Inhalation four times a day PRN, Verapamil HCl ER 1 (180 mg) Tablet, controlled release Oral daily Allergies: Codeine and PCN. Review of Systems: Review of Systems is not available for this patient. Vital Signs: Performed on Feb 22, 2021 15:05 Height - 62.00 in Weight - 163 lbs (HIGH) BSA - 1.75 sq.m BMI - 29.81 Temperature - 98.1 F (LOW) Pulse - 91 /min Respiration - 18 /min BP - 149/83 mm(hg) (HIGH) O2 Sat - 96 % Pain - 9 Fatigue - 3 Performance Status: 0 - Fully active, able to carry on all predisease activities without restrictions. (ECOG) Physical Examination: Respiratory - Lungs are clear to auscultation, Cardiovascular - Regular rate and rhythm of heart, Gastrointestinal - Soft, bowel sounds present, Extremities - No visible edema. Lab/Imaging: Most recent lab results are not available for this patient. Impression: 1. Patient with low-grade invasive carcinoma of the left breast, stage IA(T1b, N0, M0), ER/TX positive, and HER-2 negative. She underwent lumpectomy with sentinel lymph node biopsy on 06/26/2014, followed by reexcision on 07/10/14 which was negative for residual malignancy. Her Oncotype DX score returned low at 14, corresponding to 9% risk of distant recurrence after completion of hormonal therapy in the next 10 years. No adjuvant chemotherapy was recommended. 2. She was given radiation to the left breast, completed in September 2014. 3. Hormonal therapy with aromatase inhibitors for 5 years, Arimidex 1 mg daily began in July 2014.Patient did not take Arimidex from November 2015 till April 2017. So there was a 16 months gap so in that case she will finish her 5 years of hormonal therapy in January 2021 instead of July 2019 Baseline bone density was normal., Discontinued on February 22, 2021 Her other medical illnesses include: 4. Hypertension. 5. Hyperlipidemia. 6. COPD. 7. GERD. 8. Degenerative arthritis. 9. Fibromyalgia. 10. Anxiety/depression. When seen her in November 2015, she had reported significant increase in musculoskeletal pain. At that time she was also having vaginal bleeding. I did have her stop Arimidex. It is unclear to what extent the joint pain may have improved since she's been off the medication. She did undergo right total knee arthroplasty in March. She has had a good recovery from that surgery. She had been seeing Dr. Saavedra for her [employer]BL[employer] care, but she apparently is no longer practicing in this area. Patient did not take Arimidex for about 1 year and last month on April, she was restarted on Arimidex and now she is tolerating well. Plan: Discussed with patient regarding her labs white blood count 6 hemoglobin 12.3 hematocrit 38.7 platelets 199,000 CMP within normal limits Clinically, patient doing well with no new signs symptoms history of recurrence of disease, patient has completed 5 years of adjuvant hormone therapy with Arimidex, at this point we will discontinue Arimidex and monitor her and she will return to clinic in 1 year with follow-up mammogram Signed By: Eran Godinez M.D. <<Signature on File>>
== END 2021-02-22 13:28 | disposition home or self-care (01) ==
PROVIDERS: PCP Internal Medicine; Visit Provider Internal Medicine Hematology & Oncology
DX: C50.812 Malignant neoplasm of overlapping sites of left female breast (principal); Z17.0 Estrogen receptor positive status [ER+]; Z90.12 Acquired absence of left breast and nipple; Z79.811 Long term (current) use of aromatase inhibitors; I10 Essential (primary) hypertension; E78.5 Hyperlipidemia, unspecified; J44.9 Chronic obstructive pulmonary disease, unspecified; K21.9 Gastro-esophageal reflux disease without esophagitis; M19.90 Unspecified osteoarthritis, unspecified site; M79.7 Fibromyalgia; F41.9 Anxiety disorder, unspecified; F32.9 Major depressive disorder, single episode, unspecified; Z92.3 Personal history of irradiation
CPT/HCPCS: 36415; 80053; 85025; 99214

== ENCOUNTER → 2021-02-24 14:42 | Outpatient (BNVA) | payer MEDICARE, OTHER, SELFPAY | PROVIDERS: PCP Internal Medicine; Visit Provider Specialist | DX: M25.519 Pain in unspecified shoulder (principal); M19.012 Primary osteoarthritis, left shoulder | CPT/HCPCS: 73030 ==

== ENCOUNTER 2021-03-23 07:53 | Outpatient (CLI) | payer MEDICARE, OTHER, SELFPAY ==
--- NOTE | 2021-03-23 08:00 | MR_ITS ---
WS: [id number] MRI LEFT SHOULDER NONCONTRAST TECHNIQUE: Sagittal T2, coronal T1, T2 and proton density imaging. Axial gradient PDE imaging. CLINICAL INFORMATION: M25.519 - Pain in unspecified shoulder COMPARISON: MRI 4 27,018 FINDINGS: Advanced degenerative arthritis glenohumeral joint with hypertrophic spurring and subchondral scleros is. Complete loss of the glenohumeral joint space with hypertrophic spurring along the glenoid and hu meral head. Mild degenerative arthritis at the AC joint with mild downsloping of the acromion. Chroni c thinning of the rotator cuff. Rotator cuff atrophy has progressed compared to 2018. Marked thinning of the distal supraspinatus with tiny insertional tear. Tendinopathy with chronic appearing partial thickness tear of the supraspinatus. Small amount of intact tendon visualized distally. Chronic thinning of the infraspinatus which appears intact distally. Normal teres minor. Small joint effusion. Biceps tendon is intact within the bicipital groove. Fluid along the biceps tendon sheath. Partial-thickness tear of the distal subscapularis tendon appears new from previous with fluid and T2 signal abnormality MR/MR shoulder LT wo con* [id number] IMPRESSION: 1. Advanced degenerative arthritis of the glenohumeral joint with complete los s of the joint space. Associated subchondral sclerosis and hypertrophic spurrin g. 2. Advanced chronic thinning of the rotator cuff is progressed compared to 201 8. 3. Chronic appearing high-grade tear of the distal supraspinatus with chronic thinning. Intact fibers are visualized distally with a tiny insertional tear. A ssociated tendinopathy. 4. Chronic thinning of the infraspinatus which appears grossly intact. 5. Partial substance tear involving the distal subscapularis tendon is new fro m previous. Associated irregularity and T2 signal abnormality. 6. Small joint effusion and subcoracoid effusion. 7. Biceps tendon appears intact within the bicipital groove.
== END 2021-03-23 07:54 | disposition home or self-care (01) ==
LOC: RADSHAW 07:55
PROVIDERS: PCP Internal Medicine; Visit Provider Specialist
DX: M25.412 Effusion, left shoulder (principal); S46.812A Strain of other muscles, fascia and tendons at shoulder and upper arm level, left arm, initial encounter; X58.XXXA Exposure to other specified factors, initial encounter; M19.012 Primary osteoarthritis, left shoulder
CPT/HCPCS: 73221

== ENCOUNTER → 2021-04-27 13:08 | Day surgery (SDC) | payer MEDICARE, OTHER, SELFPAY | PROVIDERS: PCP Internal Medicine; Visit Provider Specialist | DX: Z01.818 Encounter for other preprocedural examination (principal) | CPT/HCPCS: 80053; 81003; 85025; 93005 ==

== ENCOUNTER → 2021-04-30 17:10 | Outpatient (BNVA) | payer MEDICARE, OTHER, SELFPAY | PROVIDERS: PCP Internal Medicine; Visit Provider Specialist | DX: Z20.822 Contact with and (suspected) exposure to COVID-19 (principal) | CPT/HCPCS: 87635 ==

== ENCOUNTER 2021-05-04 14:43 | Observation (INO) | payer MEDICARE, OTHER, SELFPAY ==
--- NOTE | 2021-04-27 12:48 | ANES.PREANE2 ---
Pre-Anesthetic Assessment Pre-Anesthetic Assessment: Height/Weight: Height 1.57 m Preop Diagnosis: Osteoarthritis right shoulder Proposed Procedure: Operation Date: 05/04/21 07:00 Proposed Procedures p Total Reverse Shoulder Arthroplasty 86882 M19.019(Left) - Keiry Mehta MD Familial anesthetic complications: PONV Social: Social History: No alcohol and No tobacco Exam: Pre-Anes Outpt Exam: alert, oriented x 3, clear to auscultation bilaterally and regular rate & rhythm Airway: Cervical ROM: WNL MP: 2 Dentition: False and Partials Additional comments: small mouth opening Pulmonary: Pulmonary: COPD and Sleep apnea CV/HEM: CV/HEM: HTN and Palp GI: GI: GERD Metabolic: Metabolic: DM and Hyperlipidemia Musc/skel: Musc/skel: OA/DJD Anesthetic Plan: ASA status: 3 Anesthesia: General and Regional (specify below) Risk of > 500 ml blood loss (7ml/kg in children): No PFSH Anesthesia PFSH: Medical History Asthma Breast CA Degenerative joint disease, shoulder, left Depression Diabetes Fibromyalgia High risk medication use HTN (hypertension) Hyperlipidemia Immunization counseling MELANIA on CPAP Osteoarthritis Osteoarthritis of both hands Osteoarthritis of both knees Surgical History History of appendectomy Hx of breast surgery Cancer c radiation for 6 weeks 2014 S/P hysterectomy S/P lumpectomy of breast S/P sinus surgery Family History Sister Hypertension Stroke Cancer BREAST Mother Diabetes Cancer BREAST Grandfather CAD (coronary artery disease) PATERNAL Grandmother CAD (coronary artery disease) PATERNAL Father Stroke Other Family history of premature coronary artery disease Hyperlipidemia Lung disease Rheumatoid arthritis Denies family history of Systemic lupus erythematosus (SLE) in adult Social History Second hand smoke exposure: No Smoking risk assessment/counseling performed?: No Alcohol intake: never Desire information about alcohol rehabilitation?: No Counseling given: No Desire information about substance/drug rehabilitation?: No Counseling given: No Lives independently: Yes Household members: none Marital status: / Current occupational status: retired History of recent travel: No Current gender identity: Female Data Anesthesia Cardiac Studies: No Data to Display
[2021-04-27 12:54] LABS: Add Urine Microscopic? NO; Charge for UA Resulting for Rev
[2021-04-27 12:58] LABS: Bilirubin Urine Neg (Negative); Blood Urine Neg (Negative); Glucose Urine UA Norm (Normal); Ketones Urine Negative (Negative); Leukocyte Esterase Urine Negative (Negative); Nitrate Urine Negative (Negative); Protein Urine Neg (Negative); Urine Appearance Clear (CLEAR); Urine Color Colorless (Yellow); Urobilinogen Urine Norm (Negative); pH Urine 7 (5-7)
[2021-04-27 13:03] VITALS: BMI 29.4
--- NOTE | 2021-04-27 13:08 | ECG_ITS ---
[facility] Test Date: 2021-04-27 Pat Name: Yanira Cespedes Department: Room: Gender: Female Uncrater: : 1945 Requested By: Keiry Mehta Order Number: [id number] [place] MD: Shanell Kumar M.D. Measurements Intervals [place] Rate: 85 P: 14 DE: 182 QRS: -5 QRSD: 73 T: 44 QT: 350 QTc: 417 Interpretive Statements SINUS RHYTHM LOW QRS VOLTAGE IN PRECORDIAL LEADS [QRS DEFLECTION < 1.0 mV IN CHEST LEADS] POSSIBLE ANTERIOR MYOCARDIAL INFARCTION , PROBABLY OLD [30 ms Q WAVE IN V3/V4, OR R < 0.2 mV IN V4] Compared to ECG 09/19/2016 12:52:45 Myocardial infarct finding now present First degree AV block no longer present Electronically Signed On 04-29-2021 19:31:00 [employer]IGGING [employer] MECHANIC by Shanell Kumar M.D. [id number]
[2021-04-27 13:33] LABS: Basophils % 0.1 %; Eosinophils % 0.6 %; Hematocrit 41.3 % (37.0-47.0); Lymphocytes # 1.5 10^3/uL (0.8-4.8); Lymphocytes % 22.2 %; Mean Corpuscular HGB Conc 31.5 g/dL (30.0-36.0); Mean Corpuscular Hemoglobin 28.2 pg (28.0-34.0); Mean Corpuscular Volume 89.6 fl (81-99); Mean Platelet Volume 8.9 fL (7.4-10.4); Monocytes # 0.7 10^3/uL (0.2-0.9); Monocytes % 10.6 %; Neutrophils # 4.48 10^3/uL (1.8-7.7); Neutrophils % 65.8 %; Nucleated Red Blood Cells % 0 %; Platelet Count 238 10^3/cmm (130-400); Red Blood Count 4.61 10^6/uL (4.1-5.3); Red Cell Distribution Width 14.2 % (12.1-15.1); White Blood Count 6.8 10^3/uL (4.0-10.0)
[2021-04-27 13:50] LABS: Alanine Aminotransferase 18 U/L (0-33); Albumin Level 4.2 g/dL (3.5-5.2); Alkaline Phosphatase 82 IU/L (35-105); Aspartate Amino Transferase 11 U/L (0-32); Blood Urea Nitrogen 19 mg/dL (8-23); Calcium 8.7 mg/dL (8.5-10.5); Carbon Dioxide 21 mmol/L (22-29); Chloride 99 mmol/L (98-107); Glucose 98 mg/dL (65-115); Osmolality Calculated 280 mOsm/kg (285-295); Sodium 134 mmol/L (136-145); Total Bilirubin 0.3 mg/dL (0.15-1.2); Total Protein 7.2 g/dL (6.6-8.7)
[2021-05-04] VITALS (14 sets, daily range): BP systolic 128–216; BP diastolic 72–118; PULSE 69–96; RESP 14–21; TEMP 36.2–37.1; O2SAT 93–98; BMI 29.1
--- NOTE | 2021-05-04 | XR_ITS ---
WS: [id number] Left shoulder, C-arm fluoroscopy, 05/04/2021 Clinical Data: reverse shoulder Comparison: None. Findings: Dr. Mehta inserted a left shoulder reverse arthroplasty. XR/XR shoulder LT min 2V* [id number] Impression: Left shoulder arthroplasty.
--- NOTE | 2021-05-04 | SCC_ITS ---
Procedure done: Reverse left shoulder arthroplasty with long head of biceps tenotomy and cerclage wire fixation of the proximal humeral shaft 57.2 seconds of fluoroscopic guidance, for a cumulative dose of 6.56 mGy, was provided to Dr. Mehta by the radiology department. C-arm images of the LEFT shoulder were saved for the patient's permanent record. [facility]
--- NOTE | 2021-05-04 09:23 | PC.NURSE ---
Dr. Coffman notified of patient's elevated blood pressure of 208/113 and manual of 216/118. Physician stated that he would come evaluate patient.
[2021-05-04] MEDS: CELEcoxib 200 mg Capsule 400 MG PO (09:42)
[2021-05-04] MEDS: acetaminophen 1,000 MG/100 ML PIGGYBACK 400 MG IV ×2 (09:44→16:20)
[2021-05-04] MEDS: sodium chloride 0.9% 1,000 ML 30 ML IV (09:45)
[2021-05-04] MEDS: vancomycin 1,000 MG in sodium chloride 0.9% 250 ML 250 MG IV (10:00)
[2021-05-04 10:04] LABS: Glucose Point of Care 92 mg/dL (70-110)
--- NOTE | 2021-05-04 10:14 | P.ANESUD_ITS ---
Pre-Anesthetic Update Pre-Anesthetic Assessment: Date of Surgery/Procedure: 05/04/21 Preop Marissa gnosis: Osteoarthritis right shoulder Proposed Procedure: Operation Date: 05/04/21 10:15 Proposed Procedures p Total Reverse Shoulder Arthroplasty 96956 M19.019(Left) - Keiry Mehta MD Any changes to Pre-Anesthetic Assessment?: No Last Intake: Intake Last Liquid Date 05/03/21 Last Liquid Time 22:00 Last Solid Date 05/03/21 Last Solid Time 22:00 Vitals: Temperature 98.1 F 05/04/21 09:21 Temperature Source Temporal Artery S can 05/04/21 09:21 Pulse Rate 94 05/04/21 09:21 Respiratory Rate 17 05/04/21 09:21 Blood Pressure 216/118 05/04/21 09:21 Blood Pressure Leticia n 150 05/04/21 09:21 Pulse Oximetry 96 05/04/21 09:21 Oxygen Delivery Me thod 05/04/21 09:29 Exam: Pre-Anes Outpt Exam: alert, oriented x 3, clear to auscultation bilaterally and regular rate & rhythm Additional Exam Findings (including area of procedure): Poorly controlled HTN Cardiac Studies: No Data to Display
--- NOTE | 2021-05-04 10:15 | W.PM.OPSUD ---
Surgery/Procedure H&P Update DATE OF PROCEDURE: May 04, 2021 DATE H&P PERFORMED: 04/22/21 CHANGES TO PREVIOUS DOCUMENTATION: Patient denies any changes. PREOP DIAGNOSIS: Osteoarthritis right shoulder PRIMARY INDICATION FOR PROCEDURE: Severe degenerative osteoarthritis of the left shoulder PLANNED PROCEDURE: Operation Date: 05/04/21 10:15 Proposed Procedures p Total Reverse Shoulder Arthroplasty 79784 M19.019(Left) - Keiry Mehta MD Related Problem List Diagnoses (1) Primary osteoarthritis, left shoulder: Patient is prepared for reverse left shoulder arthroplasty
--- NOTE | 2021-05-04 10:15 | ANES.PROC ---
Anesthesia Procedures Procedure/Date: 05/04/21 Left interscalen nerve blk Nerve Block ^: Nerve Block 1: Main Anesthesia: general anesthesia Time Out Performed: Yes Consent: requested by attending/covering physician, from patient, risks and benefits reviewed and patient agrees to proceed Nerve block location: interscalene (left) Anesthesia monitors applied: pulse oximetry, EKG, BP cuff and oxygen Nerve block position: semi sitting Anesthetic Used: bupivacaine 0.5% Amount of anesthesia used (mL): 30 Ultrasound used to: recognize landmarks and visualize and ID brachial plexus Nerve Stimulator Used?: No Interscalene/Femoral BLK: 2 stimuplex 22 g needle used for position and inplane approach Injection: neg aspiration of heme Patient Tolerated Procedure: well Complications: none
[2021-05-04] MEDS: vancomycin 1,000 MG SDV 1000 MG IRRIGATION (11:15)
[2021-05-04] MEDS: vancomycin 1,000 MG SDV 1000 MG XX (12:24)
--- NOTE | 2021-05-04 14:06 | PM.OP ---
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 Very dished glenoid. Procedure done: Reverse left shoulder arthroplasty with long head of biceps tenotomy and cerclage wire fixation of the proximal humeral shaft Implants: The [employer]360 reverse shoulder system with a size 28 reunion RSA glenoid base plate with a 24 mm x 6.5 mm center screw, a 4.5 mm x 20 mm inferior and superior peripheral screws, 4.5 x 16 mm anterior screw, a concentric glenosphere size 32 with 2 mm offset.? A reunion S humeral stem with a 12 mm diameter by 96 mm length and a humeral cup size 32 mm x 4 mm with a humeral insert size 32 mm x 4 mm. Dall-Miles cable beaded size 2.0 mm Specimens removed/disposition: Humeral head, disposed of Pathology: none sent Surgeon: Keiry Mehta Social Media Intern: [facility] operating room technicians Anesthesia: General (Intubated with preoperative interscalene block, ASA 3) Estimated blood loss (mL): 5 IV fluids (mL): 1,400 Urine output (mL): 1,000 Complications: None Findings: Severe degenerative osteoarthritis of the left shoulder with large osteophytes and very limited range of motion. The bone was very osteopenic, and during the surgical procedure was noted to have a longitudinal split along the medial cortex. This was addressed with a Dall-Miles cable. Condition: stable Disposition: PACU (Then to floor for postoperative rehabilitation and pain management with discharge to home with home health planned) Brief History: This 75-year-old woman presented with severe pain in her left shoulder. She had had multiple injections with decreasing benefit. Her shoulder was quite limited in function and and range of motion. She therefore wished to proceed with reverse shoulder arthroplasty. Risks and complications of this procedure were discussed with the patient and she wished to proceed. Consents were signed and questions were answered. Procedure: The patient was brought to the operating theater and placed in a beachchair position following administration of general anesthesia intubated as well as the preoperative regional block.? When she was positioned and confirmation was made that we could place the shoulder in appropriate positions to accomplish the surgical procedure, the left upper extremity was prepped and draped in usual fashion utilizing DuraPrep.? We confirmed we could visualize appropriately with fluoroscopy as well prior to prepping.? Following the DuraPrep, the patient's arm was draped free but so that we could use the arm harvey to secure positions of the arm and this allowed us full access to the shoulder.? Preoperatively, the patient's arm had been marked and I subsequently initialed this. During our surgical pause, we confirmed the site and side of surgery and this lopez was visualized.? Additionally, the clavicle as well as the acromioclavicular joint and the coracoid were marked to allow appropriate incision placement.? Preoperative antibiotic, vancomycin 1 g, and TXA 1 g was also given.? Surgical pause was performed prior to incision. Incision then began between the acromioclavicular joint and coracoid and continued along the deltopectoral groove.? This was a standard deltopectoral incision.? Dissection continued through skin and soft tissues using a scalpel,and hemostasis was obtained using electrocautery.? The deltopectoral fascia was incised and care was taken to protect the cephalic vein.? Cephalic vein was retracted laterally and pectoralis was retracted medially.? Soft tissues were then elevated from the subscapularis tendon.? Retractors were placed.? The coracoid was palpated as well as the musculocutaneous nerve and these were retracted as well as the deltoid on the opposite side.? The leash of vessels at the inferior aspect of the subscapularis was cauterized.? Tag sutures were placed 2 cm medial to the biceps tendon and further medial and an incision was made through the capsule and subscapularis tendon between the 2 lines of sutures.? Incision was continued transversely both superiorly through the rotator interval and inferiorly to allow access to the shoulder joint.? The tendon was initially preserved, but subsequently, tenotomy was accomplished secondary to the patient's bone quality and need for cerclage fixation. It was very difficult to dislocate the humeral head secondary to osteophytes.? There were large osteophytes inferiorly as well as anteriorly and posteriorly.? These were excised to allow dislocation of the humeral head.? Soft tissues were elevated off of the neck of the humerus following osteophyte removal.? In this way we were able to mobilize the humerus.? Osteotomy was accomplished of the humeral head, and we were then able to move the humeral head out of the way to visualize the glenoid.? Soft tissues were resected from around glenoid and down onto the glenoid neck.? Cautery was used to do this so that we could fully visualize for placement of the components.? Care was taken to protect the musculocutaneous and also the axillary nerves during this process.? The glenoid was found to be osteopenic, and there was significant deformity to the glenoid with a significant dish appearance. The humerus was also noted to be quite osteopenic. The glenoid was visualized.? The guidewire was placed into the glenoid using the jig which is included in the system.? This pin was placed until a bicortical hole was obtained.? Care was taken to assure that we were bicortical.? This was measured and the screw measured a size 24 mm.? Prior to removal of the guidewire, reaming was accomplished.? We reamed until we had good cortical bleeding bone.? Following this the guide pin was removed and a depth gauge was utilized to assure that this was the appropriate length screw to truly be bicortical.? Palpation with the depth gauge demonstrated that we were indeed bicortical.? Finding this to be so and having reamed to good bleeding bone, the 28 mm reunion RSA glenoid base plate was screwed into position with the peripheral screws being at 12:00, 9:00, and 6:00 positions.? This was screwed securely into place and the peripheral screws were placed.? We had good purchase with all peripheral screws and their length included 16 mm anteriorly, and 20 mm screw, inferiorly and superiorly.? Once the glenoid had been thus prepared, the concentric glenosphere, size 32 mm with a 2 mm offset was impacted into position.? Care was taken to fully evaluate that the glenosphere had seated completely.? We did have to reposition the sphere and reimpact it as it was quite difficult secondary to the patient's small size to position it appropriately. X-ray was used to confirm appropriate position and seating of the glenosphere as well. Attention was directed to the humerus to prepare the humerus. Once the humeral head osteotomy had been accomplished and osteophytes at been removed, we were able to mobilize the humerus and bring it up out of the wound slightly.? Sequential reamers were then passed and subsequently sequential broaches.? We broached to a size 12 S with a 12 S reamer having been passed as well.? There was significant proximal bone loss of the humerus secondary to the osteopenia. Sequential broaches were trialed, and it was noted that the patient had a longitudinally oriented fracture along the medial cortex of the humerus. Soft tissues were elevated off this area under cerclage wire, Gege 2.0 mm, was placed around this uneventfully. A trial reduction was accomplished with the trial glenosphere at 32 mm with a 2 mm offset and with a 32 mm x 4 mm humeral cup and a 32 mm x 4 mm reunion RSA X3 humeral insert. With this construct, we had excellent range of motion.? We were able to abduct to 90?, and we had free range of motion below this with excellent internal and external rotation.? We had no obvious impingement.? Distraction on the arm demonstrated less than a millimeter of distraction.? Gentle range of motion was accomplished secondary to the severe osteopenia.? Therefore, these were the chosen components.? All trial components were removed including the broach. A size 12 S reunion TSA modular humeral stem was impacted into position.? When the final implant was nearly completely impacted impacted, the cable was further tightened, and then secured. Onto this subsequently was placed the 32 mm x 4 mm humeral cup which had been assembled to the 32 x 4 mm humeral insert.? The construct was reduced.? Once again, range of motion was performed, we had excellent stability with no evidence of dislocation.? Therefore, attention was directed to closure.? The shoulder was irrigated copiously with normal saline containing vancomycin secondary to penicillin allergy.? Closure was then accomplished utilizing 0 Ethibond to close anterior rotator cuff tissues. These were very friable.?The deltopectoral groove was then evaluated.? The vein was intact.? Soft tissues were closed in this area with 0 Vicryl with care being taken to protect the vein.? We then placed vancomycin powder and Surgiflo.? The subcutaneous tissues were closed using 2-0 Monocryl.? The skin was closed with a running 3-0 Monocryl.? This was followed by Steri-Strips and Dermabond pernio.? Sterile dressing was placed consisting of an OpSite.? The patient was placed in a slingshot style sling and was returned to recovery room in satisfactory condition where she will be discharged to the floor for postoperative rehabilitation and pain management.? There were no specimens and no complications.? X-rays were obtained intraoperatively and demonstrated both appropriate position and reduction of the components as well as excellent fit of the humeral canal.
--- NOTE | 2021-05-04 14:29 | PC.NURSE ---
Pt ready to transfer at 1430, waiting on room
[2021-05-04 14:30] LABS: Glucose Point of Care 144 mg/dL (70-110)
--- NOTE | 2021-05-04 14:59 | ANE.PACU2 ---
Inpatient post-anesthesia follow up: Airway intact: Yes Vital signs: Temperature 97.2 F Pulse Rate 73 Respiratory Rate 14 Blood Pressure 170/92 Pulse Oximetry 95 Oxygen Delivery Me thod Room Air Oxygen Flow Rate Fraction of Inspir ed Oxygen Hydration adequate: Yes Nausea and vomiting: No Pain level: 1 Mental status: Baseline
[2021-05-04] MEDS: oxyCODONE 5 mg IR Tab/Cap PO (16:19)
[2021-05-04] MEDS: iron polysaccharide complex 150 mg Capsule PO (16:19)
[2021-05-04] MEDS: CELEcoxib 200 mg Capsule PO (16:20)
[2021-05-04] MEDS: HYDROcodone-acetaminophen 5-325 mg Tablet 1 TAB PO (21:06)
[2021-05-05] VITALS: BP 145/82; PULSE 85; RESP 16; TEMP 36.9; O2SAT 93
[2021-05-05] MEDS: HYDROcodone-acetaminophen 5-325 mg Tablet 1 TAB PO ×3 (00:44→14:21)
[2021-05-05] MEDS: ondansetron 2 mg/ML SDV 2 mL 4 MG IVP ×2 (00:57→08:36)
[2021-05-05] MEDS: acetaminophen 1,000 MG/100 ML PIGGYBACK 400 MG IV ×2 (01:39→10:55)
[2021-05-05 04:00] VITALS: BP 131/70; PULSE 82; RESP 16; TEMP 37.1; O2SAT 96
--- NOTE | 2021-05-05 05:43 | PC.NURSE ---
SHIFT SUMMARY Has not slept alot tonight. Says she has catnapped some Watches TV. Dressing to left shoulder is intact. Spot of blood present that was reported there since OR. Left arm in sling/immobilizer. Says her fingers still feel numb. Hand is warm with good cap refill noted and good radial pulse. Moves fingers well. Has had c/o pain through night and has received po Hydrocodone and scheduled IV Tylenol. c/o nausea once without any emesis and received IV Zofran for this. Taking po fluids well. Stein draining and will be discontinued this am.
[2021-05-05 06:12] LABS: Basophils % 0.2 %; Hematocrit 33.3 % (37.0-47.0); Hemoglobin 10.3 g/dL (11.5-15.3); Lymphocytes # 1.3 10^3/uL (0.8-4.8); Lymphocytes % 13.5 %; Mean Corpuscular HGB Conc 30.9 g/dL (30.0-36.0); Mean Corpuscular Hemoglobin 27.8 pg (28.0-34.0); Mean Platelet Volume 9.8 fL (7.4-10.4); Monocytes # 0.9 10^3/uL (0.2-0.9); Monocytes % 10.1 %; Neutrophils # 6.99 10^3/uL (1.8-7.7); Neutrophils % 75.8 %; Nucleated Red Blood Cells % 0 %; Platelet Count 174 10^3/cmm (130-400); Red Cell Distribution Width 14.6 % (12.1-15.1); White Blood Count 9.2 10^3/uL (4.0-10.0)
[2021-05-05 06:36] LABS: Anion Gap 17.4 (5-19); Blood Urea Nitrogen 12 mg/dL (8-23); Carbon Dioxide 21 mmol/L (22-29); Chloride 103 mmol/L (98-107); Glucose 100 mg/dL (65-115); Osmolality Calculated 284 mOsm/kg (285-295); Potassium 4.4 mmol/L (3.5-5.1); Sodium 137 mmol/L (136-145)
[2021-05-05 07:52] VITALS: BP 143/80; PULSE 89; RESP 18; TEMP 36.7; O2SAT 96
[2021-05-05] MEDS: vancomycin 1,000 MG in sodium chloride 0.9% 250 ML 250 MG IV (08:37)
--- NOTE | 2021-05-05 09:06 | PC.PT ---
OT evaluated this pt this morning. He reported to PT no indication that this pt needed a PT evaluation before she goes home.
[2021-05-05] MEDS: multivitamin therapeutic Tablet 1 TAB PO (09:31)
[2021-05-05] MEDS: aspirin 325 mg EC Tablet PO (09:31)
[2021-05-05] MEDS: CELEcoxib 200 mg Capsule PO (09:31)
[2021-05-05] MEDS: iron polysaccharide complex 150 mg Capsule PO (09:32)
--- NOTE | 2021-05-05 10:07 | PC.CHAP ---
Pastoral Care Encounter/Spiritual Assessment Type of Contact [] Declined weekday babysitter visit [] Patient/Family/Request visit [] Outpatient visit [] Follow-up visit [] Physician referral [] Code/Alert [x] Routine visit [] Staff referral [] Actively dying [] Patient sleeping [] Family support [] [] Out of room [] Palliative care [] [] Receiving care in room [] Pre-surgical visit [] Trauma [] Long length of stay [] ICU visit [] Other: Relational/Emotional Strength [x] Patient feels connected with others/family/visitors/staff [] Distress [] Loneliness/isolation [] Abandonment Spirituality of Patient [x] Person of Cynthia [x] Attends Church of their Cynthia [x] Believes in Prayer [x] Reads Bible or Oriental Orthodox materials [] There are Spiritual issues to be addressed Supervisor [place] Department Interventions []x Prayer [x]x Active listening [x] Non-anxious presence x[x] Spiritual/emotional support [] Crisis/trauma care [] Spiritual counseling [] Bereavement support [] Provided bereavement packet [] Provided Bible/devotional materials [] Provided toy/stuffed animal, coloring book to patient or family member [] Provided Communion [] Anointing/[place] [] Salvation [x] Completed spiritual assessment [] Other: Impact on Illness or Injury [] Angry [] Fearful [] Anxious [] Often cries [] Exhaustion [] Unable to work [] Unable to attend taoist [] Unable to walk/stand [] Unable to read [] Unable to drive [] Unable to eat/drink [] Unable to sleep [] Unable to be with family [] Patient intubated [] Other: Summary `patient doing better not much pain Time spent with patient 15 min
[2021-05-05 12:00] VITALS: BP 183/75; PULSE 96; RESP 18; TEMP 37.1; O2SAT 95
--- NOTE | 2021-05-05 14:14 | P.DS_ITS ---
Discharge Providers Date of Admission: 05/04/21 14:43 Date of Discharge: May 05, 2021 Attending Provider at Admission: Keiry Mehta MD Attending Provider at Discharge: Keiry Mehta MD Primary Care Provider: Sondra Ndiaye MD Diagnoses at Discharge Discharge Diagnosis (1) Primary osteoarthritis, left shoulder: Status: Acute (2) Status post reverse arthroplasty of left shoulder: Status: Acute Reason for Visit Reason for Visit: reverse total shoulder left Brief History: This 75-year-old woman presented with severe pain in her left shoulder.? She had had multiple injections with decreasing benefit.? Her shoulder was quite limited in function and and range of motion.? She therefore wished to proceed with reverse shoulder arthroplasty.? Risks and complications of this procedure were discussed with the patient and she wished to proceed.? Consents were signed and questions were answered. Hospital Course Hospital Course This 75-year-old woman was admitted to the hospital for left reverse shoulder arthroplasty. She had undergone nonoperative treatments for her severe degenerative osteoarthritis with rotator cuff pathology in this left shoulder. These therapies were no longer providing her benefit, and after discussion in the office, she wished to proceed with reverse left shoulder arthroplasty. Postoperatively, the patient was admitted under observation status to the floor. She was to have occupational therapy and was given occupational therapy protocol as well. She had an uneventful post operative evening and night. She was seen on the first postoperative day. She was independent and neurologically intact. She had had some nausea, but this had resolved and she was blaming this nausea on Celebrex. She is using hydrocodone to supplement her daily oxycodone which is given to her by her pain management team. Plans are that she will continue on hydrocodone to supplement her chronic pain management medications. Patient was educated as to following the reverse arthroplasty protocol. Physical Exam Const: COMMON NORMALS: no acute distress, average body habitus, patient oriented x3 and alert GENERAL APPEARANCE: cooperative and comfortable ORIENTATION/CONSCIOUSNESS: Yes awake HENMT: COMMON NORMALS: normocephalic and atraumatic HEAD & SCALP: normocephalic and atraumatic Eye: GENERAL EYE: appearance normal, both eyes and all related structures Chest: COMMONS NORMALS: normal inspection of the chest Resp: COMMON NORMALS: normal respiratory effort EFFORT & INSPECTION: Yes able to speak in complete sentences and Yes symmetric chest movement Extremity: LEFT UPPER EXTREMITY: Yes shoulder joint (Dressing is dry and intact. The patient is wearing her immobilizer.) Left shoulder joint: Yes palpation (Minimal tenderness.), Yes neurovascular exam (Intact to sensory evaluation of the axillary nerve) and Yes other (Normal sensation in the left hand.) Neuro: COMMON NORMALS: patient oriented x3 SENSORIUM/ORIENTATION: Yes alert Psych: COMMON NORMALS: mental status grossly normal APPEARANCE: Yes grossly normal ATTITUDE: Yes calm and Yes engaged ATTENTION/CONCENTRATION: Yes attention grossly intact Skin: COMMON NORMALS: no rashes or lesions noted GENERAL SKIN EXAM: no rashes or lesions noted Urinary Catheter Management: Stein Latex: Cath Placed During This Visit: yes, but has since been removed by the nurse Reason for Continuing Indwelling Catheter: Decision to DC Catheter Urinary Catheter Date of Insertion: 05/04/21 Urinary Catheter Time of Insertion: 10:25 Date Urinary Catheter Removed: 05/05/21 Time Urinary Catheter Discontinued: 06:30 Discharge Data Studies Completed and Pending Completed Studies During Hospitalization Category Date Time Status XR shoulder LT min 2V* [id number] Routine Exams 05/04/21 Completed Radiology Impressions Shoulder X-Ray 05/04/21 00:00 Impression: Left shoulder arthroplasty. Laboratory Results WBC 9.2 10^3/uL (4.0-10.0) 05/05/21 04:45 RBC 3.70 10^6/uL (4.1-5.3) L 05/05/21 04:45 Hgb 10.3 g/dL (11.5-15.3) L 05/05/21 04:45 Hct 33.3 % (37.0-47.0) L 05/05/21 04:45 MCV 90.0 fl (81-99) 05/05/21 04:45 MCH 27.8 pg (28.0-34.0) L 05/05/21 04:45 MCHC 30.9 g/dL (30.0-36.0) 05/05/21 04:45 RDW 14.6 % (12.1-15.1) 05/05/21 04:45 Plt Count 174 10^3/cmm (130-400) 05/05/21 04:45 MPV 9.8 fL (7.4-10.4) 05/05/21 04:45 Neut % (Auto) 75.8 % 05/05/21 04:45 Lymph % (Auto) 13.5 % 05/05/21 04:45 Reagan % (Auto) 10.1 % 05/05/21 04:45 Eos % (Auto) 0.0 % 05/05/21 04:45 Baso % (Auto) 0.2 % 05/05/21 04:45 Neut # (Auto) 6.99 10^3/uL (1.8-7.7) 05/05/21 04:45 Lymph # (Auto) 1.3 10^3/uL (0.8-4.8) 05/05/21 04:45 Reagan # (Auto) 0.9 10^3/uL (0.2-0.9) 05/05/21 04:45 Eos # (Auto) 0.0 10^3/uL (0.0-0.8) 05/05/21 04:45 Baso # (Auto) 0.0 10^3/uL (0.0-0.1) 05/05/21 04:45 Nucleated RBC % (auto) 0 % 05/05/21 04:45 Nucleated RBCs # 0.0 /100WBC 05/05/21 04:45 Sodium 137 mmol/L (136-145) 05/05/21 04:45 Potassium 4.4 mmol/L (3.5-5.1) 05/05/21 04:45 Chloride 103 mmol/L (98-107) 05/05/21 04:45 Carbon Dioxide 21 mmol/L (22-29) L 05/05/21 04:45 Anion Gap 17.4 (5-19) 05/05/21 04:45 BUN 12 mg/dL (8-23) 05/05/21 04:45 Creatinine 0.7 mg/dL (0.5-0.9) 05/05/21 04:45 GFR Calculation Not Reportable 05/05/21 04:45 Glucose 100 mg/dL (65-115) 05/05/21 04:45 POC Glucose 144 mg/dL (70-110) H 05/04/21 14:19 Calculated Osmolality 284 mOsm/kg (285-295) L 05/05/21 04:45 Calcium 9.0 mg/dL (8.5-10.5) 05/05/21 04:45 Total Bilirubin 0.3 mg/dL (0.15-1.2) 04/27/21 13:15 AST 11 U/L (0-32) 04/27/21 13:15 ALT 18 U/L (0-33) 04/27/21 13:15 Alkaline Phosphatase 82 IU/L (35-105) 04/27/21 13:15 Total Protein 7.2 g/dL (6.6-8.7) 04/27/21 13:15 Albumin 4.2 g/dL (3.5-5.2) 04/27/21 13:15 Globulin 3.0 g/dL (1.3-4.6) 04/27/21 13:15 Urine Color Colorless (Yellow) 04/27/21 12:45 Urine Appearance Clear (CLEAR) 04/27/21 12:45 Urine pH 7 (5-7) 04/27/21 12:45 Ur Specific [place] 1.010 (1.005-1.030) 04/27/21 12:45 Urine Protein Neg (Negative) 04/27/21 12:45 Urine Glucose (UA) Norm (Normal) 04/27/21 12:45 Urine Ketones Negative (Negative) 04/27/21 12:45 Urine Blood Neg (Negative) 04/27/21 12:45 Urine Nitrate Negative (Negative) 04/27/21 12:45 Urine Bilirubin Neg (Negative) 04/27/21 12:45 Urine Urobilinogen Norm mg/dL (Negative) 04/27/21 12:45 Ur Leukocyte Esterase Negative (Negative) 04/27/21 12:45 Procedures Performed Reverse left shoulder arthroplasty with long head of biceps tenotomy and cerclage wire fixation of the proximal humeral shaft. DOS: 05/04/21 Vitals Last Vital Signs Temp 98.7 F 05/05/21 12:00 Pulse 96 05/05/21 12:00 Resp 18 05/05/21 12:00 BP 183/75 05/05/21 12:00 Pulse Ox 95 05/05/21 12:00 Discharge Plan Discharge Patient Disposition: Home Health Service Condition: Stable Prescriptions: New aspirin 325 mg Tablet,Delayed Release (Dr/Ec) 325 mg PO DAILY 30 Days Qty: 30 0RF hydrocodone-acetaminophen 5-325 mg Tablet 1 tab PO Q4H PRN (Reason: Moderate Pain) Qty: 30 0RF Continued verapamil 180 mg capsule,ext rel. pellets 24 hr 180 mg PO DAILY 0RF calcium carbonate 500 mg PO DAILY 0RF gabapentin 300 mg capsule 300 mg PO TID 0RF anastrozole 1 mg tablet 1 mg PO DAILY 0RF citalopram 10 mg tablet 10 mg PO DAILY 0RF senna 8.6 mg capsule 8.6 mg PO BID PRN (Reason: Pain) 0RF lactobacillus combination no.8 PO DAILY 0RF loratadine [Claritin] 10 mg tablet 10 mg PO BID 0RF nortriptyline 25 mg capsule 25 mg PO .HS 0RF oxycodone-acetaminophen [Percocet] 5-325 mg tablet 0.5 tab PO TID PRN (Reason: Pain) 0RF guaifenesin [Mucinex] 600 mg tablet extended release 12hr 600 mg PO Q12H PRN (Reason: allergies) 0RF Magnesium Complex 300 mg magnesium tablet 300 mg PO BID 0RF albuterol sulfate 2.5 mg /3 mL (0.083 %) solution for nebulization 2.5 mg inhalation Q4H PRN (Reason: sob) 0RF ketoconazole 2 % cream 1 applic topical BID Qty: 30 2RF Rx Instructions: Apply to affected areas twice daily as needed (DME) Diabetic Shoes with 3 pairs of inserts See Rx Instructions .ROUTE .MEDSUPPLY Qty: 1 0RF Rx Instructions: As directed by [facility] pantoprazole 40 mg tablet,delayed release (DR/EC) 40 mg PO DAILY 0RF losartan 50 mg tablet 75 mg PO DAILY Qty: 145 3RF fluticasone propionate [Allergy Relief (fluticasone)] 50 mcg/actuation spray,suspension 1 spray INTRANASAL DAILY Qty: 48 2RF albuterol sulfate [Ventolin HFA] 90 mcg/actuation HFA aerosol inhaler 2 puff INHALATION Q6H PRN (Reason: shortness of breath or wheezing) Qty: 8.5 6RF diclofenac sodium 1 % gel 2 gm TOPICAL QID Qty: 100 0RF Rx Instructions: apply/affected areas,to single elbow, wrist or hand; for hand includes palm/fingers/back of hand Symbicort 160-4.5 mcg/actuation HFA aerosol inhaler See Rx Instructions .ROUTE .COMPLEX Qty: 30.6 3RF Dose Instruction: INHALE 2 PUFFS BY MOUTH TWICE A DAY FOR 90 DAYS Rx Instructions: INHALE 2 PUFFS BY MOUTH TWICE A DAY FOR 90 DAYS Discharge Orders: Discharge Order (Routine); Ordered 05/05/21 Ordered By: Keiry Mehta Referrals: Keiry Mehta MD [Physician] - 05/19/21 9:45 am Discharge Diet: Advance as tolerated and Usual diet Discharge Activity: Limit activity as instructed and As per PT/OT instructions Patient Instructions: Hydrocodone/Acetaminophen (By mouth), Aspirin (By mouth), Shoulder Arthroplasty (GEN), Opioid Safety Activity Restrictions/Additional Instructions: Ice to left shoulder. Follow protocol for occupational and physical therapy. Discharge Attestations Time Spent in Discharge Care*: greater than 30 min Specific Discharge Activities: educating patient, educating and/or supporting family/caregiver, documenting/other paperwork and evaluating patient/reviewing data Quality Metrics Clinical Quality Measures [ No reported AMI, CVA or VTE this stay] Coding Level of Care Code Acute Chg FW DC note Exam Comprehensive Diagnoses Primary osteoarthritis, left shoulder M19.012 Status post reverse arthroplasty of left shoulder Z96.612
[2021-05-05 15:58] VITALS: BP 183/75; PULSE 96; RESP 18; TEMP 37.1; O2SAT 95
--- NOTE | 2021-05-05 16:12 | PC.OT ---
OT returned to room to address ue exercises. Patient did not remember going over exercises at 8:15. Family was present and able to teach back.
== END 2021-05-05 15:59 | disposition home health service (06) ==
LOC: MEDSURG 18:16
PROVIDERS: Admitting Provider Specialist; PCP Internal Medicine; Visit Provider Specialist
PROC: (CPT 23472; principal; 2021-05-04 10:15)
DX: M19.012 Primary osteoarthritis, left shoulder (principal); I10 Essential (primary) hypertension; J45.909 Unspecified asthma, uncomplicated; Z85.3 Personal history of malignant neoplasm of breast; F32.9 Major depressive disorder, single episode, unspecified; E11.9 Type 2 diabetes mellitus without complications; M79.7 Fibromyalgia; Z79.899 Other long term (current) drug therapy; E78.5 Hyperlipidemia, unspecified; G47.33 Obstructive sleep apnea (adult) (pediatric); Z82.49 Family history of ischemic heart disease and other diseases of the circulatory system; Z83.3 Family history of diabetes mellitus; Z82.3 Family history of stroke
CPT/HCPCS: 23472; 36415; 36416; 51702; 64415; 73030; 76000; 76942; 80048; 82962; 85025; 97165; C1713; C1776; G0378; J2370; J2405; J2704; J3010; J3370; J3490; J7030; J7050

== ENCOUNTER → 2021-05-19 10:02 | Outpatient (BNVA) | payer MEDICARE, OTHER, SELFPAY | PROVIDERS: PCP Internal Medicine; Visit Provider Specialist | DX: Z96.612 Presence of left artificial shoulder joint (principal) | CPT/HCPCS: 73030 ==

== ENCOUNTER → 2021-06-02 09:56 | Outpatient (BNVA) | payer MEDICARE, OTHER, SELFPAY | PROVIDERS: PCP Internal Medicine; Visit Provider Specialist | DX: Z47.1 Aftercare following joint replacement surgery (principal); Z96.612 Presence of left artificial shoulder joint | CPT/HCPCS: 73030 ==

== ENCOUNTER → 2021-06-24 14:42 | Outpatient (BNVA) | payer MEDICARE, OTHER, SELFPAY | PROVIDERS: PCP Internal Medicine; Visit Provider Internal Medicine Critical Care Medicine | DX: J45.909 Unspecified asthma, uncomplicated (principal); G47.33 Obstructive sleep apnea (adult) (pediatric); I50.9 Heart failure, unspecified; I10 Essential (primary) hypertension; E78.5 Hyperlipidemia, unspecified; R06.02 Shortness of breath | CPT/HCPCS: 71046; 99214 ==

== ENCOUNTER 2021-06-24 15:47 | Outpatient (CLI) | payer MEDICARE, OTHER, SELFPAY ==
--- NOTE | 2021-06-24 15:52 | XRR_ITS ---
PROCEDURE INFORMATION: Exam: XR Chest Exam date and time: 06/24/2021 3:52 PM Age: 76 years old Clinical indication: Prior surgery; Patient HX: Shortness of breath; Had left shoulder surgery -arm in sling TECHNIQUE: Imaging protocol: XR of the chest. Views: 2 views. COMPARISON: CR XR chest 2V* [id number] 06/12/2019 10:38 AM FINDINGS: Lungs: Mild scarring is again seen in the medial right lung base. The lungs are otherwise clear. Pleural spaces: Unremarkable. No pleural effusion. No pneumothorax. Heart/Mediastinum: Unremarkable. No cardiomegaly. Bones/joints: [id number] degenerative changes are seen in the right shoulder and thoracic spine. Left shoulder arthroplasty is noted. No acute fracture XR/XR chest 2V* [id number] IMPRESSION: No acute cardiopulmonary abnormality.
== END 2021-06-24 15:48 | disposition home or self-care (01) ==
PROVIDERS: PCP Internal Medicine; Visit Provider Internal Medicine Critical Care Medicine
DX: R06.02 Shortness of breath (principal)
CPT/HCPCS: 71046

== ENCOUNTER 2021-07-02 12:13 | Outpatient (CLI) | payer MEDICARE, OTHER, SELFPAY ==
[2021-07-02 13:00] LABS: Anion Gap 15.2 (5-19); Blood Urea Nitrogen 14 mg/dL (8-23); Calcium 9.4 mg/dL (8.5-10.5); Carbon Dioxide 24 mmol/L (22-29); Chloride 99 mmol/L (98-107); Glucose 103 mg/dL (65-115); Osmolality Calculated 279 mOsm/kg (285-295); Potassium 4.2 mmol/L (3.5-5.1); Sodium 134 mmol/L (136-145)
== END 2021-07-02 12:14 | disposition home or self-care (01) ==
LOC: LAB 12:16
PROVIDERS: PCP Internal Medicine; Visit Provider Internal Medicine Critical Care Medicine
DX: I50.9 Heart failure, unspecified (principal)
CPT/HCPCS: 36415; 80048

== ENCOUNTER 2021-07-12 12:02 | Outpatient (CLI) | payer MEDICARE, OTHER, SELFPAY ==
--- NOTE | 2021-07-12 12:16 | XR_ITS ---
WS: [id number] XR hip LT 2-3V wo/w pel* [id number] REASON FOR EXAM: PAIN IN LEFT HIP FINDINGS: No fracture or focal bone lesion. Mild to moderate narrowing of the left hip joint space with mild subchondral sclerosis in the acetab ulum with small marginal osteophyte formation. There is marginal sclerosis and gas within the joint space of the left sacroiliac joint. This was dem onstrated on previous CT scan of the lumbar spine 09/12/2019. Vague density seen in the left pelvis overlying the inferior left sacrum of unknown etiology and sign ificance. XR/XR hip LT 2-3V wo/w pel* [id number] IMPRESSION: Mild to moderate changes of osteoarthritis in the left hip. Degenerative arthropathy in the left sacroiliac joint. Vague pelvic density. Recommend follow-up plain film of the pelvis.
--- NOTE | 2021-07-12 12:16 | XR_ITS ---
WS: [id number] LEFT KNEE: 3 VIEW(S) TECHNIQUE: AP, oblique(s) and lateral. HISTORY: PAIN IN LEFT KNEE COMPARISON: 06/22/2020 No fracture or dislocation. Mild narrowing of the medial and lateral joint spaces with small marginal osteophytes on the medial c ompartment. No joint effusion. No soft tissue abnormality. XR/XR knee LT 3V* [id number] IMPRESSION: 1. Mild osteoarthritis involving the medial and lateral compartments. 2. No fracture.
== END 2021-07-12 12:03 | disposition home or self-care (01) ==
LOC: RAD 12:07
PROVIDERS: PCP Internal Medicine; Visit Provider Internal Medicine
DX: M16.12 Unilateral primary osteoarthritis, left hip (principal); M17.12 Unilateral primary osteoarthritis, left knee
CPT/HCPCS: 73502; 73562

== ENCOUNTER 2021-07-13 12:38 | Outpatient (CLI) | payer MEDICARE, OTHER, SELFPAY ==
--- NOTE | 2021-07-13 12:49 | XR_ITS ---
WS: [id number] XR pelvis min 3V [id number] REASON FOR EXAM: ABNORMAL XRAY HIP/PELVIS FINDINGS: The pelvic density seen on the previous cone down left hip imaged is better evaluated on the pelvis f ilm and is shown to the dense stool in the sigmoid colon overlying the left sacrum. No mass or focal bone abnormality is identified. Osteoarthritis and degenerative change noted in both hips and sacroiliac joints. XR/XR pelvis min 3V [id number] IMPRESSION: No pelvic mass.
== END 2021-07-13 12:39 | disposition home or self-care (01) ==
PROVIDERS: PCP Internal Medicine; Visit Provider Internal Medicine
DX: R93.41 Abnormal radiologic findings on diagnostic imaging of renal pelvis, ureter, or bladder (principal)
CPT/HCPCS: 72190

== ENCOUNTER → 2021-07-15 14:26 | Outpatient (BNVA) | payer MEDICARE, OTHER, SELFPAY | PROVIDERS: PCP Internal Medicine; Visit Provider Internal Medicine | DX: I11.0 Hypertensive heart disease with heart failure (principal); I50.9 Heart failure, unspecified; J44.9 Chronic obstructive pulmonary disease, unspecified; E78.5 Hyperlipidemia, unspecified; Z79.82 Long term (current) use of aspirin; Z79.51 Long term (current) use of inhaled steroids | CPT/HCPCS: 36415; 80048; 83880; 99214 ==

== ENCOUNTER → 2021-07-21 12:59 | Outpatient (BNVA) | payer MEDICARE, OTHER, SELFPAY | PROVIDERS: PCP Internal Medicine; Visit Provider Specialist | DX: Z96.612 Presence of left artificial shoulder joint (principal) | CPT/HCPCS: 73030 ==

== ENCOUNTER → 2021-07-22 09:48 | Outpatient (BNVA) | payer MEDICARE, OTHER, SELFPAY | PROVIDERS: PCP Internal Medicine; Visit Provider Specialist | DX: M19.011 Primary osteoarthritis, right shoulder (principal); Z71.89 Other specified counseling | CPT/HCPCS: 20610; J1100; J2795; J3301 ==

== ENCOUNTER 2021-08-01 15:50 | Emergency (ER) | payer MEDICARE, OTHER, SELFPAY ==
[2021-08-01 16:33] VITALS: BP 150/71; PULSE 84; RESP 16; TEMP 37.3; O2SAT 95; BMI 29.9
--- NOTE | 2021-08-01 18:12 | ED_ITS ---
HPI - Fall General: Chief Complaint: Fall Stated Complaint: Fell Time Seen by Provider: 08/01/21 18:06 History of Present Illness: Patient states she slipped on the floor at a restaurant earlier today. And complains about right upper arm pain and right hip pain. Patient has been able to ambulate and move all extremities without problems. On her restaurant said she should come here to get checked out. She denies any loss of consciousness or hitting her head. Associated symptoms-after fall: Denies abdominal pain, chest pain or headache(s) Review of Systems Const: Denies: fever(s), chills or body aches Eyes: Denies: eye discomfort ENMT: Denies: throat pain Card: Denies: chest pain Resp: Denies: dyspnea GI: Denies: abdominal pain, nausea or vomiting Musc: Reports: extremity pain (Right humerus, anterior shoulder) and joint pain (Right hip) Skin/Breast: Denies: rash Neuro: Denies: headache(s) Psych: Denies: depression or suicidal ideation PFSH ED PFSH: Medical History Asthma Breast CA Degenerative joint disease, shoulder, left Depression Diabetes Fibromyalgia High risk medication use HTN (hypertension) Hyperlipidemia Immunization counseling MELANIA on CPAP Osteoarthritis Osteoarthritis of both hands Osteoarthritis of both knees Surgical History History of appendectomy Hx of breast surgery Cancer c radiation for 6 weeks 2014 S/P hysterectomy S/P lumpectomy of breast S/P sinus surgery Family History Sister Hypertension Stroke Cancer BREAST Mother Diabetes Cancer BREAST Grandfather CAD (coronary artery disease) PATERNAL Grandmother CAD (coronary artery disease) PATERNAL Father Stroke Other Family history of premature coronary artery disease Hyperlipidemia Lung disease Rheumatoid arthritis Denies family history of Systemic lupus erythematosus (SLE) in adult Social History Smoking and tobacco status: never smoked Second hand smoke exposure: No Smoking risk assessment/counseling performed?: No Alcohol intake: never Desire information about alcohol rehabilitation?: No Counseling given: No Desire information about substance/drug rehabilitation?: No Counseling given: No Lives independently: Yes Household members: none Marital status: / Current occupational status: retired History of recent travel: No Current gender identity: Female Physical Exam Const: COMMON NORMALS: no acute distress, patient oriented x3 and alert HENMT: COMMON NORMALS: normocephalic and external ears normal HEAD & SCALP: normocephalic EXTERNAL EAR: Yes external ears normal Eye: COMMON NORMALS: EOMs intact bilaterally Neck/C-Spine: COMMON NORMALS: no JVD Resp: COMMON NORMALS: normal respiratory effort and No use of accessory muscles Cardio: COMMON NORMALS: no JVD GI: INSPECTION: Yes normal to inspection Extremity: COMMON NORMALS: normal to inspection and full ROM NARRATIVE EXTREMITY EXAM: Mild tenderness to right humerus proximal aspect. Patient has full range of motion of the arm, able to move it freely through all planes of movement. There is no swelling. OTHER: Point tenderness right hip patient able ambulate get up out of bed without any difficulty bear weight. Did ambulate to the bed without any difficulty. Neuro: COMMON NORMALS: patient oriented x3 SENSORIUM/ORIENTATION: Yes alert Psych: COMMON NORMALS: mental status grossly normal Skin: COMMON NORMALS: no rashes or lesions noted GENERAL SKIN EXAM: no rashes or lesions noted Course Vital Signs: Vital signs: Vital Signs Temperature 99.1 F 08/01/21 16:33 Pulse Rate 84 08/01/21 16:33 Respiratory Rate 16 08/01/21 16:33 Blood Pressure 150/71 08/01/21 16:33 Pulse Oximetry 95 08/01/21 16:33 MDM - Fall Medical Decision Making Right arm and right hip contusion. Related to fall. Discharge Plan Discharge Patient Disposition: Home Clinical Impression: Contusion of right hip Contusion Qualifiers: Encounter type: initial encounter Contusion area: upper arm Laterality: right Qualified Code(s): S40.021A - Contusion of right upper arm, initial encounter Condition: Stable Prescriptions: No Action verapamil 180 mg capsule,ext rel. pellets 24 hr 180 mg PO DAILY 0RF calcium carbonate 500 mg PO DAILY 0RF gabapentin 300 mg capsule 300 mg PO TID 0RF citalopram 10 mg tablet 10 mg PO DAILY 0RF senna 8.6 mg capsule 8.6 mg PO BID PRN (Reason: Pain) 0RF lactobacillus combination no.8 PO DAILY 0RF loratadine [Claritin] 10 mg tablet 10 mg PO BID 0RF nortriptyline 25 mg capsule 25 mg PO .HS 0RF oxycodone-acetaminophen [Percocet] 5-325 mg tablet 0.5 tab PO TID PRN (Reason: Pain) 0RF guaifenesin [Mucinex] 600 mg tablet extended release 12hr 600 mg PO Q12H PRN (Reason: allergies) 0RF Magnesium Complex 300 mg magnesium tablet 300 mg PO BID 0RF albuterol sulfate 2.5 mg /3 mL (0.083 %) solution for nebulization 2.5 mg inhalation Q4H PRN (Reason: sob) 0RF ketoconazole 2 % cream 1 applic topical BID Qty: 30 2RF Rx Instructions: Apply to affected areas twice daily as needed (DME) Diabetic Shoes with 3 pairs of inserts See Rx Instructions .ROUTE .MEDSUPPLY Qty: 1 0RF Rx Instructions: As directed by [facility] pantoprazole 40 mg tablet,delayed release (DR/EC) 40 mg PO DAILY 0RF losartan 50 mg tablet 75 mg PO DAILY Qty: 145 3RF albuterol sulfate [Ventolin HFA] 90 mcg/actuation HFA aerosol inhaler 2 puff INHALATION Q6H PRN (Reason: shortness of breath or wheezing) Qty: 8.5 6RF aspirin 325 mg tablet,delayed release (DR/EC) 81 mg .ROUTE DAILY 0RF Rx Instructions: 81 mg daily; diclofenac sodium 1 % gel 2 gm TOPICAL QID Qty: 100 0RF Rx Instructions: apply/affected areas,to single elbow, wrist or hand; for hand includes palm/fingers/back of hand Symbicort 160-4.5 mcg/actuation HFA aerosol inhaler See Rx Instructions .ROUTE .COMPLEX Qty: 30.6 3RF Dose Instruction: INHALE 2 PUFFS BY MOUTH TWICE A DAY FOR 90 DAYS Rx Instructions: INHALE 2 PUFFS BY MOUTH TWICE A DAY FOR 90 DAYS fluticasone propionate [Allergy Relief (fluticasone)] 50 mcg/actuation spray,suspension 1 spray INTRANASAL DAILY Qty: 48 5RF furosemide [Lasix] 20 mg tablet 20 mg PO .every other day Qty: 90 3RF hydrocodone-acetaminophen 5-325 mg Tablet 1 tab PO Q4H PRN (Reason: Moderate Pain) Qty: 30 0RF Discharge Orders: Discharge ED (Routine); Ordered 08/01/21 Ordered By: Kenton Gilbert Referrals: Sondra Ndiaye MD [Primary Care Provider] - Discharge Diet: Usual diet Discharge Activity: Increase activity as tolerated Patient Instructions: Contusion in Adults (ED) Activity Restrictions/Additional Instructions: Follow-up with Dr. Allen as needed or return here for any worsening symptoms. Continue take your present medications. Add ice to areas as needed. Coding Level of Care Code ED Penology Teacher for Meagan Mckeon
[2021-08-01 18:18] VITALS: BP 142/69
== END 2021-08-01 18:20 | disposition home or self-care (01) ==
PROVIDERS: Emergency Provider Nurse Practitioner Family; PCP Internal Medicine
DX: S70.01XA Contusion of right hip, initial encounter (principal); S40.021A Contusion of right upper arm, initial encounter; W01.0XXA Fall on same level from slipping, tripping and stumbling without subsequent striking against object, initial encounter; Y92.511 Restaurant or cafe as the place of occurrence of the external cause; Z79.82 Long term (current) use of aspirin; I10 Essential (primary) hypertension; E11.9 Type 2 diabetes mellitus without complications; M15.9 Polyosteoarthritis, unspecified
CPT/HCPCS: 99281

== ENCOUNTER 2021-08-03 14:23 | Emergency (ER) | payer MEDICARE, OTHER, SELFPAY ==
[2021-08-03 14:31] VITALS: BP 167/83; PULSE 89; RESP 16; O2SAT 96; BMI 29.9
--- NOTE | 2021-08-03 14:53 | XR_ITS ---
WS: [id number] Left shoulder, 3 views, 08/03/2021 Clinical Data: fall injury Comparison: Left shoulder, 07/21/2021. 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 No displacement or loosening is seen . There are no fractures or dislocations. The adjacent left clavicle, scapula and ribs are intact. XR/XR shoulder LT min 2V* [id number] Impression: No change in left shoulder arthroplasty.
--- NOTE | 2021-08-03 14:53 | XR_ITS ---
WS: [id number] Right hip, 2 views, 08/03/2021 Clinical Data: fall with hip pain Comparison: Pelvis and both hips, 07/13/2021. Findings: No fractures or dislocations are seen. The hip joint is intact. There is an acetabular spur. No erosi on, sclerosis, narrowing or fragmentation of the right femoral head is seen. The soft tissues are not remarkable. The adjacent pelvis is normal. XR/XR hip RT 2-3V wo/w pel* [id number] Impression: Negative for right hip fracture.
--- NOTE | 2021-08-03 14:53 | XR_ITS ---
WS: [id number] Right shoulder, 3 views, 08/03/2021 Clinical Data: fall injury Comparison: Right shoulder, 08/14/2019. Findings: No fractures or dislocations are seen. There is osteoarthritic change of the humeral head and the adj acent glenoid fossa. The AC joint shows mild osteoarthritis.. The adjacent right clavicle, right scap alecia and ribs are normal. The soft tissues are unremarkable. XR/XR shoulder RT min 2V* [id number] Impression: 1. Negative for definite proximal right humeral fracture. 2. Osteoarthritis of the right humeral head and AC joint.
--- NOTE | 2021-08-03 14:53 | CT_ITS ---
WS: [id number] CT CERVICAL SPINE HISTORY: fall with neck pain TECHNIQUE: Contiguous 2.5 mm axial imaging performed through the entire cervical spine. Sagittal and coronal reformats also performed. All CT scans at [facility] use at least one of these dose o ptimization techniques: automated exposure control; mA and/or kV adjustment per patient size (include s targeted exams where dose is matched to clinical indication); or iterative reconstruction. DLP: 686.83 mGy.cm COMPARISON: None available. Mild straightening of the normal cervical lordosis at the lower cervical spine. Slight increase in lo rdosis in the upper cervical spine. The lateral masses are aligned odontoid is intact. Craniocervical junction is normal. Mild LEFT curvature. No cervical spine fracture is identified. Breathing motion artifact is significant in the upper thorax and lower cervical spine. No acute-appearing disc protrus ions. Mild multilevel facet joint arthritis. Mild bilateral foraminal stenosis is most significant at C6-7 due to osteophytes. Paravertebral soft tissues are negative other than scattered calcifications in the cervical carotid a Jobspotting. CT/CT cervical spin wo con* [id number] IMPRESSION: 1. No acute cervical spine fracture. 2. Degenerative cervical spondylitic changes. No high-grade central stenosis.
--- NOTE | 2021-08-03 14:53 | CT_ITS ---
WS: [id number] CT HEAD NONCONTRAST HISTORY: fall and hit head TECHNIQUE: Contiguous axial imaging performed through the brain in 2.5 mm imaging. Bone and soft tiss ue windows. Sagittal and coronal reformats reviewed. All CT scans at [facility] use at least one of these dose optimization techniques: automated exposure control; mA and/or kV adjustment per pa tient size (includes targeted exams where dose is matched to clinical indication); or iterative recon struction. DLP: 706.79 mGy.cm COMPARISON: None available. No acute intracranial hemorrhage, midline shift or mass effect. Mild atrophy and small vessel ischemic disease. Prior lacunar infarct versus perivascular space in th e LEFT randhawa radiata. Small lacunar infarct in the anterior limb RIGHT internal capsule. Mild cerebe llar atrophy. Ventricles: Normal size with no hydrocephalus. Paranasal sinuses: As visualized are clear. Mastoid air cells: Well pneumatized. Calvarium and scalp: Skull is intact with no soft tissue edema or swelling. Moderate calcification in the distal vertebral arteries and in the intracranial carotid arteries. CT/CT head wo con* [id number] IMPRESSION: 1. No acute intracranial hemorrhage or edema. 2. Mild atrophy and lacunar infarcts as described above.
--- NOTE | 2021-08-03 14:54 | ED_ITS ---
HPI - Fall General: Chief Complaint: Fall Stated Complaint: blurry vision from previous fall Time Seen by Provider: 08/03/21 14:44 History of Present Illness: Patient is a 76-year-old female who comes to the ED with injuries after fall. Patient had a fall on Monday, August 01 and was seen here in the ED after fall. She says no x-rays or any imaging were done that day and patient was discharged home. Fall injury occurred from patient slipping on some grease in the kitchen. She denies any loss of consciousness but patient had hit head on floor. She is not on any current blood thinners. Today she is having pain in her right hip that worsens whenever she ambulates. She also has neck pain and right left shoulder pain as well. This morning she also started developing blurry vision and states that she also had some double vision today. Patient's symptoms have resolved before coming to the ED. Associated symptoms-after fall: Reports neck pain; Denies abdominal pain, chest pain, headache(s) or hematuria Review of Systems Const: Denies: fever(s), chills or fatigue Eyes: Reports: change in vision (Episode of double vision) and blurry vision; Denies: eye discomfort ENMT: Denies: throat pain, odynophagia, nasal discharge or nasal congestion Card: Denies: chest pain, palpitations, edema, swelling of feet/ankles, dyspnea on exertion or orthopnea Resp: Denies: dyspnea, productive cough or non-productive cough GI: Denies: abdominal pain, nausea, vomiting, diarrhea, constipation or hematochezia : Denies: flank pain, dysuria or hematuria Musc: Reports: neck pain and extremity pain (Right hip, right shoulder and left shoulder); Denies: back pain or extremity swelling Skin/Breast: Denies: rash or new lesions Neuro: Denies: headache(s), numbness in extremities or weakness in extremities PFS ED PFSH: Medical History Asthma Breast CA Degenerative joint disease, shoulder, left Depression Diabetes Fibromyalgia High risk medication use HTN (hypertension) Hyperlipidemia Immunization counseling MELANIA on CPAP Osteoarthritis Osteoarthritis of both hands Osteoarthritis of both knees Surgical History History of appendectomy Hx of breast surgery Cancer c radiation for 6 weeks 2014 S/P hysterectomy S/P lumpectomy of breast S/P sinus surgery Family History Sister Hypertension Stroke Cancer BREAST Mother Diabetes Cancer BREAST Grandfather CAD (coronary artery disease) PATERNAL Grandmother CAD (coronary artery disease) PATERNAL Father Stroke Other Family history of premature coronary artery disease Hyperlipidemia Lung disease Rheumatoid arthritis Denies family history of Systemic lupus erythematosus (SLE) in adult Social History Smoking and tobacco status: never smoked Second hand smoke exposure: No Smoking risk assessment/counseling performed?: No Alcohol intake: never Desire information about alcohol rehabilitation?: No Counseling given: No Desire information about substance/drug rehabilitation?: No Counseling given: No Lives independently: Yes Household members: none Marital status: / Current occupational status: retired History of recent travel: No Current gender identity: Female Physical Exam Const: COMMON NORMALS: patient oriented x3 and alert GENERAL APPEARANCE: cooperative HENMT: COMMON NORMALS: normocephalic HEAD & SCALP: normocephalic MOUTH: Normal oral and palatal mucosa present THROAT: posterior oropharynx normal and uvula midline Eye: COMMON NORMALS: Equal, round and reactive pupils present, EOMs intact bilaterally and conjunctivae normal CONJUNCTIVA: Yes conjunctivae normal PUPIL: Yes Equal, round and reactive pupils present Neck/C-Spine: COMMON NORMALS: supple GENERAL: Yes normal visual inspection CERVICAL SPINE: Yes pain with cervical ROM, No Cervical spine tenderness, Yes Paracervical muscle tenderness and Yes Trapezius muscle tenderness bilateral Resp: COMMON NORMALS: normal respiratory effort, No retractions, No use of accessory muscles and clear to auscultation bilaterally AUSCULTATION: clear to auscultation bilaterally Cardio: COMMON NORMALS: regular rate, regular rhythm, S1 normal heart sound present, S2 normal heart sound present, No gallops present (Cardio), No clicks present (Cardio), No murmurs present (Cardio) and Peripheral pulses 2+ throughout RATE: regular rate RHYTHM: regular rhythm HEART SOUNDS: S1 normal heart sound present and S2 normal heart sound present PERIPHERAL PULSES: Peripheral pulses 2+ throughout GI: COMMON NORMALS: Normal to inspection, nondistended, normoactive bowel sounds present, Soft to palpation, non-tender and no masses PALPATION: Yes Soft to palpation : COMMON NORMALS: Yes no CVA tenderness BLADDER/KIDNEY EXAM: Yes no CVA tenderness Back/Pelvis: COMMON NORMALS: no CVA tenderness Extremity: COMMON NORMALS: normal to inspection NARRATIVE EXTREMITY EXAM: Right hip?ecchymosis and tenderness to lateral aspect of the right hip. No other acute findings noted. Neurovascular tact distally. No shortening or external rotation of right leg seen. Neuro: COMMON NORMALS: patient oriented x3, CN's II-XII intact bilaterally, moves all extremities, no focal motor deficits and no sensory deficits noted SENSORIUM/ORIENTATION: Yes alert SENSORY EXAM: Yes extremities (intact) MOTOR EXAM: 5/5 motor strength present throughout Skin: GENERAL SKIN EXAM: dry skin Course Vital Signs: Vital signs: Vital Signs Pulse Rate 89 08/03/21 16:39 Respiratory Rate 18 08/03/21 16:39 Blood Pressure 148/75 08/03/21 16:39 Pulse Oximetry 97 08/03/21 16:39 MDM - Fall Medical Decision Making Patient is a 76-year-old female comes to the ED with right hip, right shoulder, left shoulder, neck pain after fall a couple days ago. Patient was seen here in the ED back on August 01 when fall occurred she was diagnosed with a contusion discharged home. No scans or imaging were done at that time. She is still having a lot of pain and also had an episode of some blurry vision and double vision today. The patient's symptoms have resolved before coming to the ED. Vital stable. Exam of patient is mostly benign but she does have some paracervical muscle tenderness bilaterally. Some ecchymosis around the right hip with some tenderness as well. No right leg shortening or external rotation seen. Neuro exam is normal. CT head and cervical spine showed no acute findings or fractures. X-ray of right hip, right shoulder and left shoulder showed no acute fractures or findings. Patient was diagnosed with an injury due to a fall and a contusion right hip and discharged home. She was told to follow-up with her PCP in the next week for reevaluation. Return ED precautions given. Patient understood and agree with plan Lab Data Radiology Impressions Cervical Spine CT 08/03/21 14:53 IMPRESSION: 1. No acute cervical spine fracture. 2. Degenerative cervical spondylitic changes. No high-grade central stenosis. Head CT 08/03/21 14:53 IMPRESSION: 1. No acute intracranial hemorrhage or edema. 2. Mild atrophy and lacunar infarcts as described above. Hip/Pelvis X-Ray 08/03/21 14:53 Impression: Negative for right hip fracture. Shoulder X-Ray 08/03/21 14:53 Impression: 1. Negative for definite proximal right humeral fracture. 2. Osteoarthritis of the right humeral head and AC joint. Discharge Plan Discharge Patient Disposition: Home Clinical Impression: Fall with injury Qualifiers: Encounter type: initial encounter Qualified Code(s): W19.XXXA - Unspecified fall, initial encounter Contusion Qualifiers: Encounter type: initial encounter Contusion area: hip Laterality: right Qualified Code(s): S70.01XA - Contusion of right hip, initial encounter Condition: Stable Prescriptions: No Action gabapentin 300 mg capsule See Rx Instructions .ROUTE .COMPLEX 0RF Rx Instructions: 300 mg PO QAM, 300MG PO AT NOON AND 600MG PO BEDTIME citalopram 10 mg tablet 10 mg PO BEDTIME 0RF loratadine [Claritin] 10 mg tablet 10 mg PO BID 0RF nortriptyline 25 mg capsule 25 mg PO BEDTIME 0RF oxycodone-acetaminophen [Percocet] 5-325 mg tablet 1 tab PO TID 0RF albuterol sulfate 2.5 mg /3 mL (0.083 %) solution for nebulization 2.5 mg inhalation Q4H PRN (Reason: Shortness Of Breath) 0RF (DME) Diabetic Shoes with 3 pairs of inserts See Rx Instructions .ROUTE .MEDSUPPLY Qty: 1 0RF Rx Instructions: As directed by [facility] pantoprazole 40 mg tablet,delayed release (DR/EC) 40 mg PO QAM 0RF albuterol sulfate [Ventolin HFA] 90 mcg/actuation HFA aerosol inhaler 2 puff INHALATION Q6H PRN (Reason: shortness of breath or wheezing) Qty: 8.5 6RF Cordelia-Meridian Chews 1 tab PO PRN 0RF mineral oil Oil 5 ml PO BEDTIME 0RF Senexon-S 8.6-50 mg tablet 2 tab PO BEDTIME 0RF simvastatin 10 mg tablet 10 mg PO BEDTIME 0RF verapamil 180 mg tablet extended release 180 mg PO DAILY 0RF Aspir-81 81 mg Tablet,Delayed Release (Dr/Ec) 81 mg PO QAM 0RF guaifenesin 100 mg/5 mL Liquid 100 - 200 mg PO Q6H PRN (Reason: Congestion) 0RF Calcium 500 500 mg calcium (1,250 mg) Tablet 500 mg PO DAILY 0RF montelukast 10 mg tablet 10 mg PO BEDTIME 0RF ipratropium bromide 21 mcg (0.03 %) spray,non-aerosol 2 spray INTRANASAL TID PRN (Reason: NASAL DRAINAGE) 0RF Tray Mag Zinc Plus D3 333 mg-133 unit -133 mg-5 mg Tablet 1 tab PO BID 0RF Probiotic 1 cap PO BID 0RF losartan 50 mg tablet 75 mg PO QPM 0RF Lasix 20 mg tablet 20 mg PO BID 0RF ketoconazole 2 % cream 1 applic topical BID PRN (Reason: Rash) 0RF Flonase Allergy Relief 50 mcg/actuation spray,suspension 2 spray INTRANASAL DAILY 0RF Symbicort 160-4.5 mcg/actuation HFA aerosol inhaler 2 puff inhalation BID 0RF Discharge Orders: Discharge ED (Routine); Ordered 08/03/21 Ordered By: Srikanth Echeverria Referrals: Sondra Ndiaye MD [Primary Care Provider] - Discharge Diet: Regular Discharge Activity: Increase activity as tolerated Patient Instructions: Fall Prevention (ED) Activity Restrictions/Additional Instructions: Follow-up with medical provider as directed in the next 5 to 7 days for reevaluation. Continue taking all home medications as previously prescribed. Take [id number] Tylenol for pain. Return to the ER or your medical provider if condition worsens. Please read and understand discharge instructions. Thank you for choosing [facility] for your healthcare needs today. Please realize this is an emergency room and that we are providing you with a medical screening exam and this may not be complete and all inclusive of all the testing and or work up that you may need to determine your ailment or severity of your illness. It is very important that you follow up as instructed or that you return to the Emergency Department should you have concerns or if your condition changes or worsens in any way. Coding Level of Care Code ED Geothermal Powerplant Supervisor for Meagan Mckeon Exam Comprehensive
[2021-08-03] MEDS: orphenadrine 30 mg/mL Inj 2 mL 60 MG IM (15:01)
[2021-08-03 15:06] VITALS: BP 167/83; PULSE 86; RESP 18; O2SAT 97
[2021-08-03 16:39] VITALS: BP 148/75; PULSE 89; RESP 18; O2SAT 97
== END 2021-08-03 16:41 | disposition home or self-care (01) ==
PROVIDERS: Emergency Provider Physician Assistant; PCP Internal Medicine
DX: S70.01XA Contusion of right hip, initial encounter (principal); W01.0XXA Fall on same level from slipping, tripping and stumbling without subsequent striking against object, initial encounter; Y93.9 Activity, unspecified; Y92.000 Kitchen of unspecified non-institutional (private) residence as the place of occurrence of the external cause; Z79.891 Long term (current) use of opiate analgesic; Z79.51 Long term (current) use of inhaled steroids; Z79.82 Long term (current) use of aspirin
CPT/HCPCS: 70450; 72125; 73030; 73502; 96372; 99283; J2360

== ENCOUNTER 2021-08-04 12:42 | Outpatient (CLI) | payer MEDICARE, OTHER, SELFPAY ==
--- NOTE | 2021-08-04 13:07 | MM_ITS ---
WS: [id number] BILATERAL 3D TOMOSYNTHESIS DIGITAL DIAGNOSTIC MAMMOGRAPHY WITH CAD CLINICAL INFORMATION: HX OF BREAST CA COMPARISON: July 03, 2020 TECHNIQUE: Bilateral CC, MLO, and ML views. FINDINGS: Scattered fibroglandular densities bilaterally. Postoperative changes LEFT breast 12:00 position with parenchymal fibrosis. Associated benign dystrophic calcifications similar in appearance and have inc reased in density compared to previous. Stable adjacent clustered calcifications. Volume loss LEFT br east. RIGHT breast is unchanged in appearance. No suspicious focal mass, asymmetry, calcifications, or architectural distortion. No evidence of mal ignancy. MM/[place] [id number] IMPRESSION: BI-RADS: 2-Benign FOLLOW UP: 1 Year Follow-up Recommend return to annual diagnostic mammography.
== END 2021-08-04 12:43 | disposition home or self-care (01) ==
LOC: RAD 12:44
PROVIDERS: PCP Internal Medicine; Visit Provider Internal Medicine
DX: Z85.3 Personal history of malignant neoplasm of breast (principal)
CPT/HCPCS: 77062

== ENCOUNTER 2021-08-12 10:59 | Outpatient (CLI) | payer MEDICARE, OTHER, SELFPAY ==
[2021-08-12 12:43] LABS: Anion Gap 17.8 (5-19); Blood Urea Nitrogen 16 mg/dL (8-23); Calcium 9.4 mg/dL (8.5-10.5); Carbon Dioxide 24 mmol/L (22-29); Chloride 101 mmol/L (98-107); Glucose 110 mg/dL (65-115); NT Pro B Type Natriuretic Pept 648 pg/mL (0-450); Osmolality Calculated 290 mOsm/kg (285-295); Potassium 3.8 mmol/L (3.5-5.1); Sodium 139 mmol/L (136-145)
== END 2021-08-12 11:00 | disposition home or self-care (01) ==
LOC: LAB 11:07
PROVIDERS: PCP Internal Medicine; Visit Provider Internal Medicine
DX: I50.9 Heart failure, unspecified (principal); I10 Essential (primary) hypertension
CPT/HCPCS: 80048; 83880

== ENCOUNTER 2021-08-17 10:49 | Outpatient (CLI) | payer MEDICARE, OTHER, SELFPAY ==
--- NOTE | 2021-08-17 11:15 | USCV_ITS ---
Yanira Cespedes Age: 76 Gender: F : 1945 Exam Date: 08/17/2021 11:31 Ordering Phys: Nelson Hernandez M.D ([email or web address]) Technologist: Neeraj Simmons Exam Location: [facility] [place] Indication: SOB BP: 148 / 75 HR: 92 Rhythm: Sinus Technical Quality: MEASUREMENTS (Male / Female) Normal Values 2D ECHO LV Diastolic Diameter PLAX 4.5 cm 4.2 - 5.9 / 3.9 - 5.3 cm LV Systolic Diameter PLAX 2.9 cm IVS Diastolic Thickness 0.7 cm 0.6 - 1.0 / 0.6 - 0.9 cm IVS Systolic Thickness 1.0 cm LVPW Diastolic Thickness 0.8 cm 0.6 - 1.0 / 0.6 - 0.9 cm LVPW Systolic Thickness 1.3 cm LVOT Diameter 2.0 cm LV Ejection Fraction 2D Teich 66.0 % LV Ejection Fraction MOD 2C 54.9 % LV Ejection Fraction 2C AL 56.5 % LA Diameter 3.8 cm LA Width 3.4 cm LA Height 4.4 cm RA Width 3.5 cm RA Height 4.1 cm Aorta at Sinotubular Diameter 2.0 cm IVC Diameter 2.1 cm M-MODE Aortic Annulus Diameter 2.1 cm LA Ao Ratio MM 1.9 MV E Point Septal Separation 0.7 cm DOPPLER AV Peak Velocity 204.0 cm/s LVOT Peak Velocity 127.0 cm/s AV Area Cont Eq vti 1.8 cm squared AV Area Cont Eq pk 2.0 cm squared MV Peak Velocity 160.0 cm/s MV Area PHT 5.0 cm squared Mitral E to A Ratio 1.0 MV E' Velocity 38.5 cm/s Mitral E to MV E' Ratio 7.7 Mitral E to LV E' Lateral Ratio 8.3 Mitral E to LV E' Septal Ratio 7.2 TR Peak Velocity 317.3 cm/s TR Peak Gradient 40.3 mmHg TR Mean Velocity 183.4 cm/s TR Mean Gradient 14.1 mmHg TR Velocity Time Integral 60.4 cm Right Atrial Pressure 3.0 mmHg Pulmonary Artery Systolic Pressu 43.3 mmHg RV Acceleration Time 0.1 s RV Ejection Time 0.3 s RV AcT/ET 0.4 FINDINGS Left Ventricle Normal left ventricular size. LV systolic function is normal with EF of 55-60%. No regional wall motion abnormalities. Normal diastolic filling pattern. Right Ventricle The right ventricle is normal in size and function. Right Atrium The right atrium is normal in size. Left Atrium The left atrium is normal in size. Mitral Valve Structurally normal mitral valve. Mild mitral stenosis with mean gradient of 5mmHg. There is mild mitral regurgitation. Aortic Valve Aortic valve is thickened and calcified. Mild aortic stenosis with mean gradient across the aortic valve of 8.1mmHg and ROS of 1.8cm2. There is no aortic regurgitation. Tricuspid Valve Structurally normal tricuspid valve without significant stenosis. Trace tricuspid regurgitation. Pulmonary artery systolic pressure is normal. Pulmonic Valve Structurally normal pulmonic valve without significant stenosis. There is trace pulmonic regurgitation. Pericardium Normal pericardium without effusion. Aorta Normal ascending aorta dimension. CONCLUSIONS LV systolic function is normal with EF 55 to 60%. Normal diastolic function. Mild mitral stenosis. Mild mitral regurgitation. Mild aortic stenosis with mean gradient across aortic valve of 8.1 mmHg and ROS of 1.8 cm squared. Trace tricuspid regurgitation. Trace pulmonic regurgitation. No comparison studies are available. Nelson Hernandez MD (Electronically Signed) Final Date: 22 Aug 2021 12:54 S
== END 2021-08-17 10:50 | disposition home or self-care (01) ==
PROVIDERS: PCP Internal Medicine; Visit Provider Internal Medicine
DX: R06.02 Shortness of breath (principal); I35.0 Nonrheumatic aortic (valve) stenosis; I05.2 Rheumatic mitral stenosis with insufficiency
CPT/HCPCS: 93306

== ENCOUNTER → 2021-08-25 12:53 | Outpatient (BNVA) | payer MEDICARE, OTHER, SELFPAY | PROVIDERS: PCP Internal Medicine; Visit Provider Internal Medicine Critical Care Medicine | DX: I50.9 Heart failure, unspecified (principal); J45.909 Unspecified asthma, uncomplicated; G47.33 Obstructive sleep apnea (adult) (pediatric); E78.5 Hyperlipidemia, unspecified; I10 Essential (primary) hypertension | CPT/HCPCS: 99214 ==

== ENCOUNTER → 2021-09-01 13:44 | Outpatient (BNVA) | payer MEDICARE, OTHER, SELFPAY | PROVIDERS: PCP Internal Medicine; Visit Provider Specialist | DX: Z96.612 Presence of left artificial shoulder joint (principal); M19.012 Primary osteoarthritis, left shoulder; I50.9 Heart failure, unspecified; R06.02 Shortness of breath | CPT/HCPCS: 73030; 80048; 83880; 99213 ==

== ENCOUNTER 2021-09-14 11:38 | Outpatient (CLI) | payer MEDICARE, OTHER, SELFPAY ==
--- NOTE | 2021-09-14 11:51 | CT_ITS ---
WS: [id number] CT ABDOMEN AND PELVIS WITH CONTRAST HISTORY: ABDOMINAL DISCOMFORT TECHNIQUE: Imaging performed of the abdomen and pelvis with IV contrast. Single phase imaging of the abdomen. Coronal and sagittal reformats are submitted. All CT scans at [facility] use at [address] one of these dose optimization techniques: automated exposure control; mA and/or kV adjustment per patient size (includes targeted exams where dose is matched to clinical indication); or iterative re construction. IV CONTRAST: Omnipaque 300; 50 mL IV. Oral contrast: Yes. DLP: 1255.13 mGy.cm COMPARISON: None available. Lower thorax: Benign granuloma LEFT lung base. Heart is normal size. No hiatal hernia. Liver/biliary system: Normal size liver. There are several scattered hypodensities throughout the irineo er which cannot be characterized because of their small size. Very vague area of decreased attenuatio n near the jaymie hepatis in the LEFT lobe of liver is probably fatty infiltration. No bile duct dilat ation. Gallbladder: Normal. No gallstones or wall thickening. No pericholecystic fluid. Pancreas: Normal size pancreas and pancreatic duct. No adjacent inflammation. Spleen: Normal size spleen. No mass or infarct. Adrenal glands: Normal. Right kidney: Normal. Left kidney: Normal size. Very small hypodensities in the mid to lower renal cortex are too small to characterize. Aorta: Moderate atherosclerosis with no aneurysm. Lymphadenopathy: None. Free fluid: None. GI tract: Normally distended stomach. No small bowel obstruction. Mild diffuse constipation. Numerous diverticula are present in the descending and sigmoid colon. No acute diverticulitis. Abdominal wall: Unremarkable abdominal wall. No hernia. Pelvis: Prior hysterectomy. Well-distended urinary bladder. Bones: L4 anterolisthesis by 3 mm. Mild degenerative joint disease RIGHT hip. Early changes of avascu lar necrosis are suspected involving the RIGHT hip. CT/CT abdomen pelvis w con* [id number] IMPRESSION: 1. Moderate distal colon diverticulosis without acute diverticulitis. 2. Too small to characterize hypodensities within the liver. There is a single area of decreased attenuation in the liver near the jaymie hepatis which may be from focal steatosis. Consider further evaluation by ultrasound. If this is no t apparent CT follow-up in 2-3 months may be necessary to exclude an underlying infiltrate mass. 3. Atherosclerosis aorta.
[2021-09-14] MEDS: iohexol 300 mg/mL 100 mL Btl IV (13:34)
== END 2021-09-14 11:39 | disposition home or self-care (01) ==
LOC: RAD 11:41
PROVIDERS: PCP Internal Medicine; Visit Provider Internal Medicine
DX: R10.9 Unspecified abdominal pain (principal); K57.30 Diverticulosis of large intestine without perforation or abscess without bleeding; I70.0 Atherosclerosis of aorta
CPT/HCPCS: 74177

== ENCOUNTER → 2021-09-23 10:41 | Outpatient (BNVA) | payer MEDICARE, OTHER, SELFPAY | PROVIDERS: PCP Internal Medicine; Visit Provider Specialist | DX: M17.12 Unilateral primary osteoarthritis, left knee (principal) | CPT/HCPCS: 20610; J7326 ==

== ENCOUNTER 2021-10-08 09:45 | Outpatient (CLI) | payer MEDICARE, OTHER, SELFPAY ==
[2021-10-08 11:04] LABS: Anion Gap 15.1 (5-19); Blood Urea Nitrogen 12 mg/dL (8-23); Calcium 9.2 mg/dL (8.5-10.5); Carbon Dioxide 26 mmol/L (22-29); Chloride 102 mmol/L (98-107); Glucose 110 mg/dL (65-115); NT Pro B Type Natriuretic Pept 690 pg/mL (0-450); Osmolality Calculated 288 mOsm/kg (285-295); Potassium 4.1 mmol/L (3.5-5.1); Sodium 139 mmol/L (136-145)
== END 2021-10-08 09:46 | disposition home or self-care (01) ==
PROVIDERS: PCP Internal Medicine; Visit Provider Internal Medicine
DX: I10 Essential (primary) hypertension (principal); I50.9 Heart failure, unspecified
CPT/HCPCS: 36415; 80048; 83880

== ENCOUNTER → 2021-10-14 15:28 | Outpatient (BNVA) | payer MEDICARE, OTHER, SELFPAY | PROVIDERS: PCP Internal Medicine; Visit Provider Internal Medicine | DX: I11.0 Hypertensive heart disease with heart failure (principal); I50.9 Heart failure, unspecified; E78.5 Hyperlipidemia, unspecified | CPT/HCPCS: 99214 ==

== ENCOUNTER → 2021-10-18 09:39 | Outpatient (BNVA) | payer MEDICARE, OTHER, SELFPAY | PROVIDERS: PCP Internal Medicine; Referring Provider Internal Medicine; Visit Provider Surgery | DX: D64.9 Anemia, unspecified (principal); R10.9 Unspecified abdominal pain; R14.0 Abdominal distension (gaseous) | CPT/HCPCS: 99203 ==

== ENCOUNTER → 2021-10-28 11:23 | Outpatient (BNVA) | payer MEDICARE, OTHER, SELFPAY | PROVIDERS: PCP Internal Medicine; Visit Provider Specialist | DX: M19.011 Primary osteoarthritis, right shoulder (principal) | CPT/HCPCS: 20610; J1100; J2795; J3301 ==

== ENCOUNTER → 2021-12-16 10:47 | Outpatient (BNVA) | payer MEDICARE, OTHER, SELFPAY | PROVIDERS: PCP Internal Medicine; Visit Provider Specialist | DX: M17.12 Unilateral primary osteoarthritis, left knee (principal); Z71.89 Other specified counseling | CPT/HCPCS: 20610; J1100; J2795; J3301 ==

== ENCOUNTER 2021-12-22 06:41 | Day surgery (SDC) | payer MEDICARE, OTHER, SELFPAY ==
[2021-12-20 10:44] VITALS: BMI 28.1
[2021-12-22 07:05] VITALS: BP 147/101; PULSE 96; RESP 18; TEMP 36.7; O2SAT 94
--- NOTE | 2021-12-22 07:33 | P.ANESASSM_ITS ---
Pre-Anesthetic Assessment Height/Weight: Height 1.57 m Weight 69.853 kg Temp Pulse Resp BP Pulse Ox O2 Del Method 98.0 F 96 18 147/101 94 12/22/21 07:05 12/22/21 07:05 12/22/21 07:05 12/22/21 07:05 12/22/21 07:05 12/22/21 07:05 Preop Diagnosis: Osteoarthritis right shoulder Operation Date: 12/22/21 08:00 Proposed Procedures p EGD 36776,R10.9(Not Applicable) - Juan David Sorto DO Familial anesthetic complications: none Was Beta Saurabh taken within 24 hours: N/A Was Clonidine taken within 24 hours: N/A Last intake: Intake Last Liquid Date 12/21/21 Last Liquid Time 23:00 Last Solid Date 12/21/21 Last Solid Time 21:30 Social No alcohol and No tobacco Exam alert, oriented x 3, clear to auscultation bilaterally and regular rate & rhythm Airway Submandibular: within normal limits Cervical ROM: within normal limits Mallampati: Class II Dentition: partials Comments: Comments: False uppers, lower partial Pulmonary Asthma, Sleep Apnea (Uses CPAP) and Shortness of Breath CV/HEM Congestive Heart Failure, Hypertension and Murmur TTE 08/17/21 CONCLUSIONS ?LV systolic function is normal with EF 55 to 60%. ?Normal diastolic function. ?Mild mitral stenosis.? Mild mitral regurgitation. ?Mild aortic stenosis with mean gradient across aortic valve of ?8.1 mmHg and ROS of 1.8 cm squared. ?Trace tricuspid regurgitation. ?Trace pulmonic regurgitation. ?No comparison studies are available. EKG 04/2021 ?Interpretive Statements SINUS RHYTHM LOW QRS VOLTAGE IN PRECORDIAL LEADS? 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 [email or web address] None reported METS = 4 Hepatic None reported GI Gastroesophageal Reflux Disease (Poorly controlled ) Metabolic Diabetes Mellitus (Has hx of hypoglycemia ) and Hyperlipidemia [facility] [place] Fibromyalgia and Osteoarthritis/DJD Breast CA Neuropsych Depression Anesthetic Plan ASA status: 3 Anesthesia: Anesthesia Evaluation, General and MAC Other: I discussed with the patient risks, goals, and benefits of MAC and general anesthesia. We discussed spectrum of MAC anesthesia including conversion to general as well as possibility of recall of intraoperative stimuli including discomfort/pain. Patient agrees to proceed with MAC. Risk of > 500 ml blood loss (7ml/kg in children): No Medications/Allergies Home Medications Medication Instructions Recorded Confirmed Last Taken Type citalopram 10 mg tablet 10 mg PO BEDTIME 05/29/19 12/20/21 12/21/21 History gabapentin 300 mg capsule See Rx Instructions .Route .COMPLEX 05/29/19 12/20/21 12/21/21 History loratadine 10 mg tablet (Claritin) 10 mg PO BID 05/30/19 12/20/21 12/21/21 History pantoprazole 40 mg tablet,delayed 40 mg PO QAM 05/30/19 12/20/21 12/21/21 History release nortriptyline 25 mg capsule 25 mg PO BEDTIME 07/30/19 12/20/21 12/21/21 History oxycodone-acetaminophen 5 mg-325 1 tab PO TID 11/14/19 12/20/21 12/21/21 History mg tablet (Percocet) albuterol sulfate 2.5 mg inhalation Q4H PRN 08/18/20 12/20/21 12/21/21 History Shortness Of Breath Diabetic Shoes with 3 pairs of #1 ea 04/19/21 12/16/21 12/21/21 Rx inserts Cordelia-Turin Chews 1 tab PO PRN 08/03/21 12/20/21 12/21/21 History Probiotic 1 cap PO BID 08/03/21 12/20/21 12/21/21 History aspirin 81 mg tablet,delayed 81 mg PO QAM 08/03/21 12/20/21 12/20/21 History release budesonide-formoterol HFA 160 2 puff inhalation BID 08/03/21 12/20/21 12/21/21 History mcg-4.5 mcg/actuation aerosol inhaler (Symbicort) calcium carbonate 500 mg calcium 500 mg PO DAILY 08/03/21 12/20/21 12/21/21 History (1,250 mg) tablet fluticasone propionate 50 2 spray intranasal DAILY 08/03/21 12/20/21 12/21/21 History mcg/actuation nasal spray,suspension (Flonase Allergy Relief) ipratropium bromide 21 mcg (0.03 2 spray intranasal TID PRN NASAL 08/03/21 12/20/21 12/21/21 History %) nasal spray DRAINAGE ketoconazole 2 % topical cream 1 applic topical BID PRN Rash 08/03/21 12/20/21 12/21/21 History mineral oil 5 ml PO BEDTIME 08/03/21 12/20/21 12/21/21 History montelukast 10 mg tablet 10 mg PO BEDTIME 08/03/21 12/20/21 12/21/21 History sennosides 8.6 mg-docusate sodium 2 tab PO BEDTIME 08/03/21 12/20/21 12/21/21 History 50 mg tablet (Senexon-S) simvastatin 10 mg tablet 10 mg PO BEDTIME 08/03/21 12/20/21 12/21/21 History verapamil 180 mg tablet,extended 180 mg PO DAILY 08/03/21 12/20/21 12/22/21 History release losartan 50 mg tablet 75 mg PO QPM #135 tabs 09/28/21 12/20/21 12/21/21 Rx furosemide 20 mg tablet (Lasix) 20 mg PO ONCE #180 tabs 10/14/21 12/20/21 0 12/21/21 Rx guaifenesin 100 mg/5 mL oral liquid 100 - 200 mg PO Q6H PRN Congestion 10/18/21 12/20/21 12/21/21 History Allergies Allergy/AdvReac Type Severity Reaction Status Date / Time Penicillins Allergy Severe ALGY-Rash Verified 12/16/21 10:03 propoxyphene [From Darvon] Allergy Severe ALGY-Anaphy Verified 12/16/21 10:03 laxis atorvastatin [From Lipitor] AdvReac Severe ADV-Weaknes Verified 12/16/21 10:03 s [facility] Anesthesia Medical History Asthma Breast CA Degenerative joint disease, shoulder, left Depression Diabetes Fibromyalgia High risk medication use HTN (hypertension) Hyperlipidemia 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 MELANIA on CPAP Osteoarthritis Osteoarthritis of both hands Osteoarthritis of both knees Surgical History History of appendectomy History of colonoscopy History of knee surgery History of shoulder surgery Hx of breast surgery Cancer c radiation for 6 weeks 2014 S/P hysterectomy S/P lumpectomy of breast S/P sinus surgery Family History Sister Hypertension Stroke Cancer BREAST Mother Diabetes Cancer BREAST Grandfather CAD (coronary artery disease) PATERNAL Grandmother CAD (coronary artery disease) PATERNAL Father Stroke Other Family history of premature coronary artery disease Hyperlipidemia Lung disease Rheumatoid arthritis Denies family history of Systemic lupus erythematosus (SLE) in adult Social History Smoking and tobacco status: never smoked Second hand smoke exposure: No Smoking risk assessment/counseling performed?: No Alcohol intake: never Desire information about alcohol rehabilitation?: No Counseling given: No Desire information about substance/drug rehabilitation?: No Counseling given: No Lives independently: Yes Household members: none Marital status: / Current occupational status: retired History of recent travel: No Current gender identity: Female Data Anesthesia Cardiac Studies: Echocardiogram 08/17/21
[2021-12-22] MEDS: sodium chloride 0.9% 1,000 ML 30 ML IV (07:35)
--- NOTE | 2021-12-22 08:14 | PM.HP ---
Providers/Chief Complaint Primary Care Provider: Sondra Ndiaye MD Chief Complaint: unspecified abdominal pain History of Present Illness Yanira Cespedes is a 76 year old female here for EGD Medications/Allergies Home Medications Medication Instructions Recorded Confirmed Last Taken Type citalopram 10 mg tablet 10 mg PO BEDTIME 05/29/19 12/20/21 12/21/21 History gabapentin 300 mg capsule See Rx Instructions .Route .COMPLEX 05/29/19 12/20/21 12/21/21 History loratadine 10 mg tablet (Claritin) 10 mg PO BID 05/30/19 12/20/21 12/21/21 History pantoprazole 40 mg tablet,delayed 40 mg PO QAM 05/30/19 12/20/21 12/21/21 History release nortriptyline 25 mg capsule 25 mg PO BEDTIME 07/30/19 12/20/21 12/21/21 History oxycodone-acetaminophen 5 mg-325 1 tab PO TID 11/14/19 12/20/21 12/21/21 History mg tablet (Percocet) albuterol sulfate 2.5 mg inhalation Q4H PRN 08/18/20 12/20/21 12/21/21 History Shortness Of Breath Diabetic Shoes with 3 pairs of #1 ea 04/19/21 12/16/21 12/21/21 Rx inserts Cordelia-Wil[place] Chews 1 tab PO PRN 08/03/21 12/20/21 12/21/21 History Probiotic 1 cap PO BID 08/03/21 12/20/21 12/21/21 History aspirin 81 mg tablet,delayed 81 mg PO QAM 08/03/21 12/20/21 12/20/21 History release budesonide-formoterol HFA 160 2 puff inhalation BID 08/03/21 12/20/21 12/21/21 History mcg-4.5 mcg/actuation aerosol inhaler (Symbicort) calcium carbonate 500 mg calcium 500 mg PO DAILY 08/03/21 12/20/21 12/21/21 History (1,250 mg) tablet fluticasone propionate 50 2 spray intranasal DAILY 08/03/21 12/20/21 12/21/21 History mcg/actuation nasal spray,suspension (Flonase Allergy Relief) ipratropium bromide 21 mcg (0.03 2 spray intranasal TID PRN NASAL 08/03/21 12/20/21 12/21/21 History %) nasal spray DRAINAGE ketoconazole 2 % topical cream 1 applic topical BID PRN Rash 08/03/21 12/20/21 12/21/21 History mineral oil 5 ml PO BEDTIME 08/03/21 12/20/21 12/21/21 History montelukast 10 mg tablet 10 mg PO BEDTIME 08/03/21 12/20/21 12/21/21 History sennosides 8.6 mg-docusate sodium 2 tab PO BEDTIME 08/03/21 12/20/21 12/21/21 History 50 mg tablet (Senexon-S) simvastatin 10 mg tablet 10 mg PO BEDTIME 08/03/21 12/20/21 12/21/21 History verapamil 180 mg tablet,extended 180 mg PO DAILY 08/03/21 12/20/21 12/22/21 History release losartan 50 mg tablet 75 mg PO QPM #135 tabs 09/28/21 12/20/21 12/21/21 Rx furosemide 20 mg tablet (Lasix) 20 mg PO ONCE #180 tabs 10/14/21 12/20/21 12/21/21 Rx guaifenesin 100 mg/5 mL oral liquid 100 - 200 mg PO Q6H PRN Congestion 10/18/21 12/20/21 12/21/21 History Allergies Allergy/AdvReac Type Severity Reaction Status Date / Time Penicillins Allergy Severe ALGY-Rash Verified 12/16/21 10:03 propoxyphene [From Darvon] Allergy Severe ALGY-Anaphy Verified 12/16/21 10:03 laxis atorvastatin [From Lipitor] AdvReac Severe ADV-Weaknes Verified 12/16/21 10:03 s PFSH Acute PFSH: Medical History Asthma Breast CA Degenerative joint disease, shoulder, left Depression Diabetes Fibromyalgia High risk medication use HTN (hypertension) Hyperlipidemia 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 MELANIA on CPAP Osteoarthritis Osteoarthritis of both hands Osteoarthritis of both knees Surgical History History of appendectomy History of colonoscopy History of knee surgery History of shoulder surgery Hx of breast surgery Cancer c radiation for 6 weeks 2014 S/P hysterectomy S/P lumpectomy of breast S/P sinus surgery Family History Sister Hypertension Stroke Cancer BREAST Mother Diabetes Cancer BREAST Grandfather CAD (coronary artery disease) PATERNAL Grandmother CAD (coronary artery disease) PATERNAL Father Stroke Other Family history of premature coronary artery disease Hyperlipidemia Lung disease Rheumatoid arthritis Denies family history of Systemic lupus erythematosus (SLE) in adult Social History Smoking and tobacco status: never smoked Second hand smoke exposure: No Smoking risk assessment/counseling performed?: No Alcohol intake: never Desire information about alcohol rehabilitation?: No Counseling given: No Desire information about substance/drug rehabilitation?: No Counseling given: No Lives independently: Yes Household members: none Marital status: / Current occupational status: retired History of recent travel: No Current gender identity: Female Vitals/I&O/Wt Last Vital Signs Temp 98.0 F 12/22/21 07:05 Pulse 96 12/22/21 07:05 Resp 18 12/22/21 07:05 BP 147/101 12/22/21 07:05 Pulse Ox 94 12/22/21 07:05 O2 Del Method 12/22/21 07:05 Weight last 48 hrs Weight 154 lb A&P Assessment and plan (1) Abdominal pain: Status: Acute (2) Anemia: Status: Acute Plan EGD Attestations Medical Necessity Statement*: Home Coding Level of Care Code 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
[2021-12-22 08:29] VITALS: BP 145/76; PULSE 83; RESP 16; TEMP 36.5; O2SAT 92
[2021-12-22 08:40] VITALS: BP 154/90; PULSE 79; RESP 18; O2SAT 94
--- NOTE | 2021-12-22 13:53 | ANE.PACU2 ---
Inpatient post-anesthesia follow up: Airway intact: Yes Vital signs: Temperature 97.7 F Pulse Rate 79 Respiratory Rate 18 Blood Pressure 154/90 Pulse Oximetry 94 Oxygen Delivery Me thod Room Air Oxygen Flow Rate 2 Fraction of Inspir ed Oxygen Hydration adequate: Yes Nausea and vomiting: No Pain level: 1 Mental status: Baseline
== END 2021-12-22 08:57 | disposition home or self-care (01) ==
PROVIDERS: PCP Internal Medicine; Visit Provider Surgery
PROC: 0DJ08ZZ Inspection of Upper Intestinal Tract, Via Natural or Artificial Opening Endoscopic (ICD-10-PCS; CPT 43235; principal; 2021-12-22 08:00)
DX: K29.50 Unspecified chronic gastritis without bleeding (principal); K25.9 Gastric ulcer, unspecified as acute or chronic, without hemorrhage or perforation; D64.9 Anemia, unspecified; K21.9 Gastro-esophageal reflux disease without esophagitis; I11.0 Hypertensive heart disease with heart failure; I50.9 Heart failure, unspecified; E11.9 Type 2 diabetes mellitus without complications; E78.5 Hyperlipidemia, unspecified; J45.909 Unspecified asthma, uncomplicated; G47.33 Obstructive sleep apnea (adult) (pediatric); Z79.82 Long term (current) use of aspirin; Z88.0 Allergy status to penicillin
CPT/HCPCS: 43239; 88305; 88342; J2704; J3490; J7030

== ENCOUNTER → 2021-12-28 13:55 | Outpatient (BNVA) | payer MEDICARE, OTHER, SELFPAY | PROVIDERS: PCP Internal Medicine; Visit Provider Internal Medicine Critical Care Medicine | DX: J45.909 Unspecified asthma, uncomplicated (principal); I50.9 Heart failure, unspecified; G47.33 Obstructive sleep apnea (adult) (pediatric) | CPT/HCPCS: 99214 ==

== ENCOUNTER → 2022-01-10 16:04 | Outpatient (BNVA) | payer MEDICARE, OTHER, SELFPAY | PROVIDERS: PCP Internal Medicine; Visit Provider Surgery | DX: Z09 Encounter for follow-up examination after completed treatment for conditions other than malignant neoplasm (principal); K29.70 Gastritis, unspecified, without bleeding; B96.81 Helicobacter pylori [H. pylori] as the cause of diseases classified elsewhere | CPT/HCPCS: 99212 ==

== ENCOUNTER 2022-01-31 10:13 | Outpatient (CLI) | payer MEDICARE, OTHER, SELFPAY ==
--- NOTE | 2022-01-31 10:24 | CT_ITS ---
WS: [id number] CT ABDOMEN PELVIS TECHNIQUE: Contrast-enhanced CT of the abdomen and pelvis with coronal and sagittal reformatted image s. CLINICAL INFORMATION: ABNORMAL ABDOMINAL IMAGING COMPARISON: CT September 14, 2021 DLP: 1972.[address] scans at [facility] use at least one of these dose optimization techniques: automated e xposure control; mA and/or kV adjustment per patient size (includes targeted exams where dose is matc hed to clinical indication); or iterative reconstruction. FINDINGS: Previously described area of low-attenuation near the jaymie hepatis is stable and likely represents f ocal fat. Normal portal vein and splenic vein. A few tiny low-attenuation lesions likely hepatic cyst s. Fatty atrophy of the pancreas. Normal GE junction. Lung bases are well aerated. Normal spleen. Nor mal caliber abdominal aorta. Mild aortic calcification. Celiac and SMA are patent Adrenal glands are normal. Renal cortical atrophy. Normal renal parenchymal enhancement. No hydroneph rosis. Small LEFT renal cysts.No abdominal or pelvic lymphadenopathy. No inguinal lymphadenopathy. Si gmoid diverticulosis. No evidence of acute diverticulitis. No evidence of high-grade small or large b owel obstruction. Tiny fat-containing umbilical hernia. Grade 1 anterolisthesis L3 on L4 and L4 on L5. Lumbar curve convex LEFT. Prior hysterectomy. CT/CT abdomen pelvis w con* [id number] IMPRESSION: 1. Previously described area of patchy hepatic low-attenuation near the jaymie hepatis is unchanged. This likely represents a small amount of focal fat. 2. No other suspicious hepatic lesions. 3. Extensive sigmoid diverticulosis. No evidence of acute diverticulitis. 4. Simple LEFT renal cysts. No hydronephrosis in either kidney. 5. Gastritis with duodenitis. 6. No other remarkable findings.
[2022-01-31] MEDS: iohexol 350 mg/mL 100 mL Btl IV (11:00)
== END 2022-01-31 10:14 | disposition home or self-care (01) ==
LOC: RAD 10:15
PROVIDERS: PCP Internal Medicine; Visit Provider Internal Medicine
DX: R93.5 Abnormal findings on diagnostic imaging of other abdominal regions, including retroperitoneum (principal); K29.60 Other gastritis without bleeding; K57.30 Diverticulosis of large intestine without perforation or abscess without bleeding; N28.1 Cyst of kidney, acquired
CPT/HCPCS: 74177

== ENCOUNTER → 2022-02-03 09:46 | Outpatient (BNVA) | payer MEDICARE, OTHER, SELFPAY | PROVIDERS: PCP Internal Medicine; Visit Provider Specialist | DX: Z71.89 Other specified counseling (principal); M19.011 Primary osteoarthritis, right shoulder | CPT/HCPCS: 20610; J1100; J2795; J3301 ==

== ENCOUNTER → 2022-03-31 09:12 | Outpatient (BNVA) | payer MEDICARE, OTHER, SELFPAY | PROVIDERS: PCP Internal Medicine; Visit Provider Specialist | DX: M19.012 Primary osteoarthritis, left shoulder (principal); Z71.89 Other specified counseling; M17.12 Unilateral primary osteoarthritis, left knee | CPT/HCPCS: 20610; J7326 ==

== ENCOUNTER → 2022-05-26 11:57 | Outpatient (BNVA) | payer MEDICARE, OTHER, SELFPAY | PROVIDERS: PCP Internal Medicine; Visit Provider Specialist | DX: M19.011 Primary osteoarthritis, right shoulder (principal) | CPT/HCPCS: 20610; 73030; 99213; J1100; J2795; J3301 ==

== ENCOUNTER → 2022-06-27 13:00 | Outpatient (BNVA) | payer MEDICARE, OTHER, SELFPAY | PROVIDERS: PCP Internal Medicine; Visit Provider Nurse Practitioner Family | DX: I11.0 Hypertensive heart disease with heart failure (principal); I50.9 Heart failure, unspecified; Z79.82 Long term (current) use of aspirin; J45.909 Unspecified asthma, uncomplicated; G47.33 Obstructive sleep apnea (adult) (pediatric); Z01.811 Encounter for preprocedural respiratory examination; Z99.89 Dependence on other enabling machines and devices | CPT/HCPCS: 99214 ==

== ENCOUNTER → 2022-07-07 10:13 | Outpatient (BNVA) | payer MEDICARE, OTHER, SELFPAY | PROVIDERS: PCP Internal Medicine; Visit Provider Specialist | DX: M17.12 Unilateral primary osteoarthritis, left knee (principal) | CPT/HCPCS: 20610; J1100; J2795; J3301 ==

== ENCOUNTER 2022-07-12 09:36 | Outpatient (CLI) | payer MEDICARE, OTHER, SELFPAY ==
[2022-07-12 10:47] VITALS: BMI 28.9
--- NOTE | 2022-07-12 10:49 | ECG_ITS ---
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 Interpretive Statements NAME OF STUDY: LEXISCAN SESTAMIBI STRESS TEST INDICATION: [cardiac clearance, ] Procedure: At the baseline, the blood pressure was 128/75 mmHg with a heart rate of 72 bpm. The electrocardiogram showed normal sinus rhythm, normal axis with normal ST and T's. The Lexiscan was infused over a period of 20 seconds. A total of 0.4 mg of Lexiscan was infused. The stress phase was continued for a total of 5 minutes. Heart rate was at the end of stress phase was 83 bpm and a blood pressure of 145/73 mmHg. The EKG at the peak infusion revealed normal sinus rhythm with no significant ST-T wave changes. Sestamibi was injected 20 seconds after the Lexiscan infusion. Blood pressure at the end of recovery phase was 148/86 mmHg with a heart rate of 78 bpm. Conclusion: 1. Normal EKG response to Lexiscan infusion 2. No Lexiscan induced chest pain or cardiac arrhythmia. 3. Normal blood pressure and heart rate response. 4. Sestamibi/sestamibi perfusion scan pending; see separate report. Electronically Signed On 07-17-2022 14:58:57 CDT by Nelson Hernandez M.D. [email or web address]
--- NOTE | 2022-07-12 10:49 | NMCV_ITS ---
NM maria victoria perf SPECT r/s* [id number] Yanira Cespedes Age: 77 Gender: F : 1945 Exam Date: 07/12/2022 11:05 Ordering Phys: Ivy North Technologist: TONY Razo Exam Location: [facility] Indications: HEART FAILURE, HYPERTENSION STRESS TEST Please see separate stress test report in [facility] for full findings IMAGE PROTOCOL Rest/Stress 1 Lexiscan Day Radiopharmaceutical Dose (mCi) Administration Site Administered by Rest: Tc-99m 10.7 IV TONY Theodore Sestamibi Stress:Tc-99m 32.1 IV TONY Theodore Sestamibi Rest: 12-Jul-2022 60 Discovery 630 Stress: 12-Jul-2022 30 Discovery 630 0.4mg Lexiscan. Supine position only as patient was unable to lay prone. SPECT RESULTS Technical Quality: Excellent Raw Data Analysis: Normal Image Corrections: No attenuation or motion correction applied Summed Stress Score: 2 Summed Rest Score: 2 Summed Difference Score: 0 PERFUSION FINDINGS There is a small in size, fixed perfusion defect noted in the inferolateral wall. 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 FUNCTIONAL RESULTS (calculated via Gated SPECT) Stress Image LV EF (%): 86 Stress EDV (mL):51 TID: 1.19 Stress ESV (mL):7 FUNCTIONAL FINDINGS: There is normal left ventricular systolic function. IMPRESSIONS 1. 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 No ischemia is noted 2. LV systolic function is normal Nelson Hernandez MD (Electronically Signed) Final Date: 16 July 2022 14:10 S
[2022-07-12 11:57] VITALS: BP 148/86; PULSE 80
[2022-07-12] MEDS: regadenoson 0.4 Mg/5 ml Syringe IVP (11:57)
== END 2022-07-12 09:37 | disposition home or self-care (01) ==
LOC: CDL 09:40
PROVIDERS: PCP Internal Medicine; Visit Provider Nurse Practitioner Family
DX: I11.0 Hypertensive heart disease with heart failure (principal); I50.9 Heart failure, unspecified; R94.39 Abnormal result of other cardiovascular function study
CPT/HCPCS: 36415; 78452; 93017; 96374; A9500; J2785

== ENCOUNTER 2022-07-18 10:24 | Outpatient (CLI) | payer MEDICARE, OTHER, SELFPAY | END 2022-07-18 10:25 | disposition home or self-care (01) | LOC: RT 07-21 12:24 | PROVIDERS: PCP Internal Medicine; Visit Provider Specialist | DX: Z13.6 Encounter for screening for cardiovascular disorders (principal) | CPT/HCPCS: 93005 ==

== ENCOUNTER → 2022-07-18 12:58 | Outpatient (BNVA) | payer MEDICARE, OTHER, SELFPAY | PROVIDERS: PCP Internal Medicine; Visit Provider Specialist | DX: M19.011 Primary osteoarthritis, right shoulder (principal) | CPT/HCPCS: 99214 ==

== ENCOUNTER 2022-07-26 17:09 | Observation (INO) | payer MEDICARE, OTHER, SELFPAY ==
[2022-07-18 09:39] VITALS: BMI 27.4
[2022-07-18 10:14] LABS: Basophils % 0.4 %; Eosinophils # 0.3 10^3/uL (0.0-0.8); Eosinophils % 5.3 %; Hematocrit 39.9 % (37.0-47.0); Hemoglobin 12.8 g/dL (11.5-15.3); Lymphocytes # 1.5 10^3/uL (0.8-4.8); Lymphocytes % 30.2 %; Mean Corpuscular HGB Conc 32.1 g/dL (30.0-36.0); Mean Corpuscular Hemoglobin 30.8 pg (28.0-34.0); Mean Corpuscular Volume 96.1 fl (81-99); Monocytes # 0.6 10^3/uL (0.2-0.9); Monocytes % 12.1 %; Neutrophils # 2.44 10^3/uL (1.8-7.7); Neutrophils % 50.4 %; Nucleated Red Blood Cells % 0 %; Platelet Count 153 10^3/cmm (130-400); Red Blood Count 4.15 10^6/uL (4.1-5.3); Red Cell Distribution Width 14.2 % (12.1-15.1); White Blood Count 4.9 10^3/uL (4.0-10.0)
--- NOTE | 2022-07-18 10:16 | ANES.PREANE2 ---
Pre-Anesthetic Assessment Height/Weight: Height 1.57 m Weight 68.039 kg Preop Diagnosis: Osteoarthritis right shoulder Operation Date: 07/26/22 07:00 Proposed Procedures p RIGHT REVERSE TOTAL SHOULDER ARTHROPLASTY 14875,M19.019(Right) - Keiry Mehta MD Familial anesthetic complications: none Social No alcohol and No tobacco Exam alert, oriented x 3, clear to auscultation bilaterally and regular rate & rhythm Airway Mallampati: Class II Dentition: false and partials Pulmonary Asthma, Chronic Obstructive Pulmonary Disease and Sleep Apnea CV/HEM Anemia, Congestive Heart Failure and Hypertension stress test Conclusion: 1.? Normal EKG response to Lexiscan infusion 2.? No Lexiscan induced chest pain or cardiac arrhythmia. 3.? Normal blood pressure and heart rate response. 4.? Sestamibi/sestamibi perfusion scan pending; see separate report. echo 2022 ?CONCLUSIONS ?LV systolic function is normal with EF 55 to 60%. ?Normal diastolic function. ?Mild mitral stenosis.? Mild mitral regurgitation. ?Mild aortic stenosis with mean gradient across aortic valve of ?8.1 mmHg and ROS of 1.8 cm squared. ?Trace tricuspid regurgitation. ?Trace pulmonic regurgitation. ?No comparison studies are available. Anesthetic Plan ASA status: 3 Anesthesia: Regional (specify below) (spinal + adductor) Risk of > 500 ml blood loss (7ml/kg in children): Yes, adequate IV access and fluids planned Medications/Allergies Home Medications Medication Instructions Recorded Confirmed Last Taken Type citalopram 10 mg tablet 10 mg PO BEDTIME 05/29/19 07/18/22 07/18/22 History gabapentin 300 mg capsule See Rx Instructions .Route .COMPLEX 05/29/19 07/18/22 07/18/22 History loratadine 10 mg tablet (Claritin) 10 mg PO BID 05/30/19 07/18/22 07/18/22 History nortriptyline 25 mg capsule 25 mg PO BEDTIME 07/30/19 07/18/22 07/18/22 History oxycodone-acetaminophen 5 mg-325 1 tab PO TID PRN Pain 11/14/19 07/18/22 07/18/22 History mg tablet (Percocet) Diabetic Shoes with 3 pairs of #1 ea 04/19/21 07/07/22 12/21/21 Rx inserts Cordelia-Char[place] Chews 1 tab PO PRN PRN Stomach Upset 08/03/21 07/18/22 07/18/22 History Probiotic 1 cap PO BID 08/03/21 07/18/22 07/18/22 History aspirin 81 mg tablet,delayed 81 mg PO QAM 08/03/21 07/18/22 07/18/22 History release fluticasone propionate 50 2 spray intranasal DAILY 08/03/21 07/18/22 07/18/22 History mcg/actuation nasal spray,suspension (Flonase Allergy Relief) ipratropium bromide 21 mcg (0.03 2 spray intranasal TID PRN NASAL 08/03/21 07/18/22 07/18/22 History %) nasal spray DRAINAGE ketoconazole 2 % topical cream 1 applic topical BID PRN Rash 08/03/21 07/18/22 07/17/22 History mineral oil 5 ml PO BEDTIME 08/03/21 07/18/22 07/18/22 History montelukast 10 mg tablet 10 mg PO BEDTIME 08/03/21 07/18/22 07/18/22 History sennosides 8.6 mg-docusate sodium 2 tab PO BEDTIME 08/03/21 07/18/22 07/18/22 History 50 mg tablet (Senexon-S) simvastatin 10 mg tablet 10 mg PO BEDTIME 08/03/21 07/18/22 07/18/22 History verapamil 180 mg tablet,extended 180 mg PO DAILY 08/03/21 07/18/22 07/18/22 History release losartan 50 mg tablet 75 mg PO QPM #135 tabs 09/28/21 07/18/22 07/18/22 Rx guaifenesin 100 mg/5 mL oral liquid 100 - 200 mg PO Q6H PRN Congestion 10/18/21 07/18/22 07/17/22 History potassium chloride 10 mEq 10 meq PO DAILY 01/27/22 07/18/22 07/18/22 History tablet,extended release budesonide-formoterol HFA 160 2 puff inhalation BID #10.2 grams 06/07/22 07/18/22 07/18/22 Rx mcg-4.5 mcg/actuation aerosol inhaler (Symbicort) budesonide 160 mcg-glycopyr 9 2 inh inhalation BID #10.7 grams 06/27/22 07/18/22 Unknown Rx mcg-formot 4.8 mcg/actuation HFA inhaler (Breztri Aerosphere) acetaminophen 500 mg capsule 1,500 mg PO BEDTIME 07/18/22 07/18/22 07/17/22 History albuterol sulfate 90 mcg/actuation 2 puff inhalation Q6H PRN 07/18/22 07/18/22 07/18/22 History aerosol inhaler Shortness Of Breath calcium carb 333 mg-vit D3 133 1 tab PO BID 07/18/22 07/18/22 07/18/22 History unit-mag ox 133 mg-zinc oxide 5 mg tab (Tray Mag Zinc Plus D3) ferrous sulfate 325 mg (65 mg 325 mg PO BID 07/18/22 07/18/22 07/18/22 History iron) tablet furosemide 20 mg tablet (Lasix) 20 mg PO DAILY 07/18/22 07/18/22 07/18/22 History nystatin 100,000 unit/mL oral 10 ml PO Q6H 07/18/22 07/18/22 07/18/22 History suspension pantoprazole 40 mg tablet,delayed 40 mg PO DAILY 07/18/22 07/18/22 07/18/22 History release (Protonix) Allergies Allergy/AdvReac Type Severity Reaction Status Date / Time Penicillins Allergy Severe ALGY-Rash Verified 07/07/22 15:43 propoxyphene [From Darvon] Allergy Severe ALGY-Anaphy Verified 07/07/22 15:43 laxis terbinafine [From Lamisil] Allergy Intermediate ALGY-Rash Verified 07/07/22 15:43 atorvastatin [From Lipitor] AdvReac Severe ADV-Weaknes Verified 07/07/22 15:43 s PFSH Anesthesia Medical History Asthma Breast CA Degenerative joint disease, shoulder, left Depression Diabetes Fibromyalgia High risk medication use History of nonmelanoma skin cancer HTN (hypertension) Hyperlipidemia 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 MELANIA on CPAP Osteoarthritis Osteoarthritis of both hands Osteoarthritis of both knees Surgical History History of appendectomy History of colonoscopy History of knee surgery History of shoulder surgery Hx of breast surgery Cancer c radiation for 6 weeks 2014 S/P hysterectomy S/P lumpectomy of breast S/P sinus surgery Family History Sister Hypertension Stroke Cancer BREAST Mother Diabetes Cancer BREAST Grandfather CAD (coronary artery disease) PATERNAL Grandmother CAD (coronary artery disease) PATERNAL Father Stroke Other Family history of premature coronary artery disease Hyperlipidemia Lung disease Rheumatoid arthritis Denies family history of Systemic lupus erythematosus (SLE) in adult Social History Smoking and tobacco status: never smoked Second hand smoke exposure: No Smoking risk assessment/counseling performed?: No Alcohol intake: never Desire information about alcohol rehabilitation?: No Counseling given: No Desire information about substance/drug rehabilitation?: No Counseling given: No Lives independently: Yes Household members: none Marital status: / Current occupational status: retired Current gender identity: Female Data Anesthesia 07/18/22 10:05 07/18/22 10:05 Short CBC 07/18/22 Range/Units 10:05 WBC 4.9 (4.0-10.0) 10^3/uL Hgb 12.8 (11.5-15.3) g/dL Hct 39.9 (37.0-47.0) % MCV 96.1 (81-99) fl Plt Count 153 (130-400) 10^3/cmm Neut % (Auto) 50.4 % Neut # (Auto) 2.44 (1.8-7.7) 10^3/uL Cardiac Studies: Echocardiogram 08/17/21 Sestamibi Stress Test (Cardiology) 07/12/22
--- NOTE | 2022-07-18 10:24 | ECG_ITS ---
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 Measurements Intervals [place] Rate: 80 P: 36 [place]: 235 QRS: 4 QRSD: 70 T: 62 QT: 365 QTc: 422 Interpretive Statements SINUS RHYTHM WITH FIRST DEGREE AV BLOCK LOW QRS VOLTAGE IN PRECORDIAL LEADS [QRS DEFLECTION < 1.0 mV IN CHEST LEADS] POSSIBLE ANTERIOR MYOCARDIAL INFARCTION , PROBABLY OLD [30 ms Q WAVE IN V3/V4, OR R < 0.2 mV IN V4] Compared to ECG 04/27/2021 13:17:58 First degree AV block now present Myocardial infarct finding still present Electronically Signed On 07-18-2022 23:47:43 CDT by Jaqui Mcrae M.D. [email or web address]
[2022-07-18 10:31] LABS: Anion Gap 16.4 (5-19); Blood Urea Nitrogen 15 mg/dL (8-23); Calcium 8.9 mg/dL (8.5-10.5); Carbon Dioxide 25 mmol/L (22-29); Chloride 101 mmol/L (98-107); Glucose 94 mg/dL (65-115); Osmolality Calculated 287 mOsm/kg (285-295); Potassium 4.4 mmol/L (3.5-5.1); Sodium 138 mmol/L (136-145)
[2022-07-26] VITALS (16 sets, daily range): BP systolic 157–200; BP diastolic 80–105; PULSE 64–93; RESP 14–22; TEMP 36.4–37.7; O2SAT 93–100; BMI 27.4
--- NOTE | 2022-07-26 | XR_ITS ---
WS: [id number] Right shoulder, C-arm fluoroscopy, 07/26/2022 Clinical Data: RIGHT TOTAL SHOULDER Comparison: Right shoulder, 05/26/2022 Findings: Dr. Mehta performed a right shoulder arthroplasty XR/XR shoulder RT min 2V* 90625 Impression: Right shoulder arthroplasty.
[2022-07-26] MEDS: acetaminophen 1,000 MG/100 ML PIGGYBACK 400 MG IV (10:13)
[2022-07-26] MEDS: CELEcoxib 200 mg Capsule 400 MG PO (10:13)
[2022-07-26] MEDS: sodium chloride 0.9% 1,000 ML 30 ML IV (10:13)
[2022-07-26] MEDS: midazolam 1 mg/mL INJ 2 mL 2 MG IVP (10:25)
--- NOTE | 2022-07-26 10:36 | SUR.PREOP ---
1035-nerve block was done at bedside in ops. Time out was completed and verified prior to start of procedure completed by dr montanez and RN.
[2022-07-26 11:21] LABS: Add Urine Microscopic? NO; Charge for UA Resulting for Rev
--- NOTE | 2022-07-26 11:30 | SUR.PREOP ---
1105-patient stated she was having trouble breathing, O2 sats were WNL, patient became short of breath upon ambulating to restroom. Once back in room patient used her home inhaler and states she is feeling better.
--- NOTE | 2022-07-26 12:09 | W.PM.OPSUD ---
Surgery/Procedure H&P Update DATE OF PROCEDURE: July 26, 2022 DATE H&P PERFORMED: 07/18/22 H&P UPDATE INFORMATION: I have reviewed H&P completed within last 30 days, I have examined patient prior to procedure, No changes to prior documentation and H&P is in [facility] EMR on date indicated PREOP DIAGNOSIS: Rotator cuff arthropathy right shoulder PLANNED PROCEDURE: Operation Date: 07/26/22 10:45 Proposed Procedures p RIGHT REVERSE TOTAL SHOULDER ARTHROPLASTY 34182,M19.019(Right) - Keiry Mehta MD Related Problem List Diagnoses (1) Rotator cuff arthropathy of right shoulder: (2) Osteoarthritis of right shoulder: Qualifiers: Osteoarthritis type: primary Qualified Code(s): M19.011 - Primary osteoarthritis, right shoulder
[2022-07-26 12:18] LABS: Bilirubin Urine Neg (Negative); Blood Urine Neg (Negative); Glucose Urine UA Norm (Normal); Ketones Urine Negative (Negative); Leukocyte Esterase Urine Negative (Negative); Nitrate Urine Negative (Negative); Protein Urine Neg (Negative); Sulfosalicylic Acid Urine Negative (Negative); Urine Appearance Clear (CLEAR); Urine Color Yellow (Yellow); Urobilinogen Urine Neg (Negative); pH Urine 8 (5-7)
[2022-07-26] MEDS: ceFAZolin 2,000 MG in sodium chloride 0.9% (plus) 50 ML 100 MG IV ×2 (12:28→22:10)
--- NOTE | 2022-07-26 13:01 | P.ANESUD_ITS ---
Pre-Anesthetic Update Pre-Anesthetic Assessment: Date of Surgery/Procedure: 07/26/22 Preop Marissa gnosis: Rotator cuff arthropathy right shoulder Proposed Procedure: Operation Date: 07/26/22 10:45 Proposed Procedures p RIGHT REVERSE TOTAL SHOULDER ARTHROPLASTY 16643,M19.019(Right) - Keiry Mehta MD Any changes to Pre-Anesthetic Assessment?: No Last Intake: Intake Last Liquid Date 07/25/22 Last Liquid Time 22:30 Last Solid Date 07/25/22 Last Solid Time 22:30 Labs Last 48hrs: Urine 07/26/22 Range/Units 09:30 Urine Color Yellow (Yellow) Urine Appearance Clear (CLEAR) Urine pH 8 H (5-7) Ur Specific Gravit y 1.020 (1.005-1.030) Urine Protein Neg (Negative) Urine Glucose (UA) Norm (Normal) Urine Ketones Negative (Negative) Urine Nitrate Negative (Negative) Urine Bilirubin Neg (Negative) Ur Leukocyte Vida ase Negative (Negative) Vitals: Temperature 99.8 F H 07/26/22 09:49 Temperature Source Temporal Artery S can 07/26/22 09:49 Pulse Rate 64 07/26/22 11:32 Respiratory Rate 17 07/26/22 11:32 Blood Pressure 162/84 07/26/22 09:49 Blood Pressure Leticia n 110 07/26/22 09:49 Pulse Oximetry 93 07/26/22 11:32 Oxygen Delivery Me thod Room Air 07/26/22 11:32 Exam: Pre-Anes Outpt Exam: alert, oriented x 3, clear to auscultation bilaterally and regular rate & rhythm Cardiac Studies: Echocardiogram 08/17/21 Sestamibi Stress Test (Cardiology) 07/12 Anesthesia Procedures 2 Nerve Block: Nerve Block 1: Main Anesthesia: general anesthesia Time Out Performed: Yes Consent: requested by attending/covering physician, from patient, risks and benefits reviewed and patient agrees to proceed Nerve block location: interscalene (right) Anesthesia monitors applied: pulse oximetry, EKG, BP cuff and oxygen Nerve block position: semi sitting Anesthetic Used: ropivicaine 0.5% Amount of anesthesia used (mL): 30 Ultrasound used to: recognize landmarks and visualize and ID brachial plexus Nerve Stimulator Used?: No Interscalene/Femoral BLK: 2 stimuplex 22 g needle used for position and inplane approach Injection: neg aspiration of heme Patient Tolerated Procedure: well Complications: none
[2022-07-26] MEDS: tranexamic acid 1,000 mg/10mL SDV 1000 MG IV (13:35)
[2022-07-26] MEDS: vancomycin 1,000 MG SDV 1000 MG XX (14:28)
--- NOTE | 2022-07-26 15:09 | SUR.OPER ---
1235 IV in right hand noted to be kinked and unable to administer medication through it. IV was removed, catheter intact.
--- NOTE | 2022-07-26 15:39 | SUR.PREOP ---
1000-IV was incorrectly charted to left hand, should be right hand. Only IV established in pre-op was to right hand. Unable to modify to correct side.
--- NOTE | 2022-07-26 16:57 | PM.OP ---
Operative Report Date of procedure: July 26, 2022 Pre-op diagnosis: Severe degenerative osteoarthritis of the left shoulder with significant osteophytes and osteopenia.? Very dished glenoid Post-op diagnosis: Severe degenerative osteoarthritis of the left shoulder with significant osteophytes and osteopenia.? Very dished glenoid Procedure done: Reverse left shoulder arthroplasty with long head of biceps tenotomy Implants: [employer] reverse shoulder system with a size 28 reunion RSA glenoid base plate with a 24 mm x 6.5 mm center screw, a 4.5 mm x 20 mm superior, 2 x 4.5 x 16 mm anterior and posterior screw, a concentric glenosphere size 32 with 2 mm offset.? A reunion S humeral stem with a 12 mm diameter by 96 mm length and a humeral cup size 32 mm x 4 mm with a humeral insert size 32 mm x 4 mm. Specimens removed/disposition: Bone, disposed of Pathology: none sent Surgeon: Keiry Mehta Field Operator: [facility] operating room technicians Anesthesia: General (Intubated with preoperative interscalene block, ASA 3) Estimated blood loss (mL): 500 IV fluids (mL): 800 Urine output (mL): 550 Complications: None Findings: Very dished glenoid with large osteophytes. Condition: stable Disposition: PACU (Then to floor for postoperative rehabilitation and pain management with discharge to home with home health planned) Brief History: This 77-year-old woman presented with severe pain in her right shoulder.? She has previously had left reverse shoulder arthroplasty, and she has done well with this. With regard to her right shoulder, she had had multiple injections with decreasing benefit.? Her shoulder was quite limited in function and and range of motion.? She therefore wished to proceed with reverse shoulder arthroplasty to this right shoulder.? Risks and complications of this procedure were discussed with the patient and she wished to proceed.? Consents were signed and questions were answered. Procedure: The patient was brought to the operating theater and placed in a beachchair positioner following administration of general anesthesia intubated as well as the preoperative regional block.? When she was positioned and confirmation was made that we could place the shoulder in appropriate positions to accomplish the surgical procedure, the right upper extremity was prepped and draped in usual fashion utilizing DuraPrep.? We confirmed we could visualize appropriately with fluoroscopy as well prior to prepping.? Following the DuraPrep, the patient's arm was draped free but so that we could use the arm harvey to secure positions of the arm and this allowed us full access to the shoulder.? Preoperatively, the patient's arm had been marked and I subsequently initialed this.? During our surgical pause, we confirmed the site and side of surgery and this lopez was visualized.? Additionally, the clavicle as well as the acromioclavicular joint and the coracoid were marked to allow appropriate incision placement.? Preoperative antibiotic, ancef 2 g, and TXA 1 g was also given.? Surgical pause was performed prior to incision. Incision then began between the acromioclavicular joint and coracoid and continued along the deltopectoral groove.? This was a standard deltopectoral incision.? Dissection continued through skin and soft tissues using a scalpel,and hemostasis was obtained using electrocautery.? The deltopectoral fascia was incised and care was taken to protect the cephalic vein.? Cephalic vein was retracted laterally and pectoralis was retracted medially.? Soft tissues were then elevated from the subscapularis tendon.? Retractors were placed.? The coracoid was palpated as well as the musculocutaneous nerve and these were retracted as well as the deltoid on the opposite side.? The leash of vessels at the inferior aspect of the subscapularis was cauterized.? Tag sutures were placed 2 cm medial to the biceps tendon and further medial and an incision was made through the capsule and subscapularis tendon between the 2 lines of sutures.? Incision was continued transversely both superiorly through the rotator interval and inferiorly to allow access to the shoulder joint.? Biceps tenotomy was accomplished with tenodesis. It was very difficult to dislocate the humeral head secondary to osteophytes.? There were large osteophytes inferiorly as well as anteriorly and posteriorly.? These were excised to allow dislocation of the humeral head.? Soft tissues were elevated off of the neck of the humerus following osteophyte removal.? In this way we were able to mobilize the humerus.? Osteotomy was accomplished of the humeral head, and we were then able to move the humeral head out of the way to visualize the glenoid.? Soft tissues were resected from around glenoid and down onto the glenoid neck.? Cautery was used to do this so that we could fully visualize for placement of the components.? Care was taken to protect the musculocutaneous and also the axillary nerves during this process.? The glenoid was found to be osteopenic, and there was significant deformity to the glenoid with a significant dish appearance.? The humerus was also noted to be quite osteopenic. The glenoid was visualized.? The guidewire was placed into the glenoid.? This pin was placed until a bicortical hole was obtained.? Care was taken to assure that we were bicortical.? This was measured and the screw measured a size 24 mm.? Prior to removal of the guidewire, reaming was accomplished.? We reamed until we had good cortical bleeding bone.? Following this the guide pin was removed and a depth gauge was utilized to assure that this was the appropriate length screw to truly be bicortical.? Palpation with the depth gauge demonstrated that we were indeed bicortical.? Finding this to be so and having reamed to good bleeding bone, the 28 mm reunion RSA glenoid base plate was screwed into position with the peripheral screws being at 12:00, 9:00, and 3:00 positions.? This was screwed securely into place and the peripheral screws were placed.? We had good purchase with all peripheral screws and their length included 20 mm superiorly, and 16 mm screws anterior and posterior.? Once the glenoid had been thus prepared, the concentric glenosphere, size 32 mm with a 2 mm offset was impacted into position.? Care was taken to fully evaluate that the glenosphere had seated completely.? We did have to reposition the sphere and reimpact it as it was quite difficult secondary to the patient's small size to position it appropriately.? X-ray was used to confirm appropriate position and seating of the glenosphere as well. Attention was directed to the humerus to prepare the humerus.? Once the humeral head osteotomy had been accomplished and osteophytes at been removed, we were able to mobilize the humerus and bring it up out of the wound slightly.? Sequential reamers were then passed and subsequently sequential broaches.? We broached to a size 12 S with a 12 S reamer having been passed as well.? There was significant proximal bone loss of the humerus secondary to the osteopenia.? Sequential broaches were trialed.? A trial reduction was accomplished with the trial glenosphere at 32 mm with a 2 mm offset and with a 32 mm x 4 mm humeral cup and a 32 mm x 4 mm reunion RSA X3 humeral insert. With this construct, we had excellent range of motion.? We were able to abduct to 90?, and we had free range of motion below this with excellent internal and external rotation.? We had no obvious impingement.? Distraction on the arm demonstrated approximately a millimeter of distraction.? Gentle range of motion was accomplished secondary to the severe osteopenia.? Therefore, these were the chosen components.? All trial components were removed including the broach. A size 12 S reunion TSA modular humeral stem was impacted into position.? When the final implant was nearly completely impacted impacted, the cable was further tightened, and then secured.? Onto this subsequently was placed the 32 mm x 4 mm humeral cup which had been assembled to the 32 x 4 mm humeral insert.? The construct was reduced.? Once again, range of motion was performed, we had excellent stability with no evidence of dislocation.? Therefore, attention was directed to closure.? The shoulder was irrigated copiously with normal saline with Betadine and subsequently this was irrigated out with normal saline.? Closure was then accomplished utilizing 0 Ethibond to close anterior rotator cuff tissues.? These were very friable.?The deltopectoral groove was then evaluated.? The vein was intact.? Soft tissues were closed in this area with 0 Vicryl with care being taken to protect the vein.? We then placed vancomycin powder and Surgiflo.? The subcutaneous tissues were closed using 2-0 Monocryl.? The skin was closed with a running 3-0 Monocryl.? This was followed by Steri-Strips and Dermabond pernio.? Sterile dressing was placed consisting of an OpSite.? The patient was placed in a slingshot style sling and was returned to recovery room in satisfactory condition where she will be discharged to the floor for postoperative rehabilitation and pain management.? There were no specimens and no complications.? X-rays were obtained intraoperatively and demonstrated both appropriate position and reduction of the components as well as excellent fit of the humeral canal. Related Problem List Diagnoses (1) Rotator cuff arthropathy of right shoulder: (2) Osteoarthritis of right shoulder:
--- NOTE | 2022-07-26 17:40 | P.CONIM_ITS ---
Providers/Reason For Consult Consulting Physician/Specialty*: MD Valerie/internal medicine Reason for Consult*: Medical comorbidities Requesting Physician: Dr. Mehta Attending Physician: Keiry Mehta MD Primary Care Provider: Sondra Ndiaye MD History of Present Illness History of Present Illness Yanira Cespedes is a 77 year old female with past medical history of heart failure in the past but found to have preserved ejection fraction, mild , hypertension, breast cancer, asthma, sleep apnea on CPAP, MELANIA, dyslipidemia, fibromyalgia, admitted under orthopedic service today for right shoulder arthroplasty. Patient underwent OR today. Medicine service is consulted for medical comorbidities. Patient seen pos toperatively laying comfortably in bed complaining of pain in shoulder. Denies any nausea vomiting, headache. States blood pressures at home are usually less than 120/80 mmHg. Checks blood pressure regularly and maintains a diary. Patient was recently seen by both cardiology and pulmonary service as an outpatient and cleared for the OR. Stress testing recently was negative for any acute ischemia. Patient did have 1 episode of fever up to 99.8 Fahrenheit prior to the OR. Labs were ordered but not collected yet. Review of Systems General: Reports: 10 or more systems reviewed and unremarkable except in HPI and below Const: Denies: fever(s), chills, body aches, change in appetite, change in weight, malaise, night sweats, diaphoresis, change in sleep pattern, daytime sleepiness or snoring Eyes: Denies: change in vision, blurry vision, photophobia, eye discomfort or eye discharge ENMT: Denies: throat pain, enlarged tonsils, hoarseness, mouth pain, oral sores, dry mouth, tinnitus, nasal congestion or post nasal drip Card: Denies: chest pain, palpitations, irregular heart rhythm, edema, swelling of feet/ankles, lightheadedness, syncope, pre-syncope, dyspnea on exertion, orthopnea, leg pain with exertion or acrocyanosis Resp: Denies: dyspnea, productive cough, non-productive cough, wheezing, stridor, pain on inspiration, change in phlegm color, hemoptysis or chest congestion GI: Denies: abdominal pain, nausea, vomiting, hematemesis, coffee ground emesis, dysphagia, heartburn, diarrhea, constipation, bloating, GI cramping, change in bowel habits, pain on defecation, hematochezia or melena : Denies: flank pain, dysuria, urinary frequency, urinary urgency, urinary hesitancy, nocturia or hematuria Musc: Denies: neck pain, back pain, extremity pain, joint pain, joint swelling, joint redness, joint stiffness or limited range of motion Neuro: Denies: headache(s), numbness in extremities, weakness in extremities, sensory changes, lack of coordination, difficulty walking, frequent falls, dizziness, vertigo, confusion, Slurred speech present, difficulty communicating thoughts or seizure-like activity Psych: Denies: anxiety, depression, mood swings, panic attacks, hopelessness or irritability Endo: Denies: polyuria, polydipsia, tired all the time, cold intolerance, excessive sweating, flushing or heat intolerance [place]/Lymph: Denies: easy bruising or easy bleeding All/Imm: Denies: tongue swelling, facial swelling or acute wheezing Medications/Allergies Home Medications Medication Instructions Recorded Confirmed Last Taken Type citalopram 10 mg tablet 10 mg PO BEDTIME 05/29/19 07/26/22 07/25/22 22:30 History gabapentin 300 mg capsule See Rx Instructions .Route .COMPLEX 05/29/19 07/26/22 07/25/22 18:00 History loratadine 10 mg tablet (Claritin) 10 mg PO BID 05/30/19 07/26/22 07/25/22 18:00 History nortriptyline 25 mg capsule 25 mg PO BEDTIME 07/30/19 07/26/22 07/25/22 22:30 History oxycodone-acetaminophen 5 mg-325 1 tab PO TID PRN Pain 11/14/19 07/26/22 07/25/22 18:00 History mg tablet (Percocet) Diabetic Shoes with 3 pairs of #1 ea 04/19/21 07/27/22 12/21/21 Rx inserts [place] Chews 1 tab PO PRN PRN Stomach Upset 08/03/21 07/26/22 07/25/22 22:00 History Probiotic 1 cap PO BID 08/03/21 07/26/22 07/25/22 08:00 History aspirin 81 mg tablet,delayed 81 mg PO QAM 08/03/21 07/26/22 07/23/22 History release fluticasone propionate 50 2 spray intranasal DAILY 08/03/21 07/26/22 07/26/22 History mcg/actuation nasal spray,suspension (Flonase Allergy Relief) ipratropium bromide 21 mcg (0.03 2 spray intranasal TID PRN NASAL 08/03/21 07/18/22 07/18/22 History %) nasal spray DRAINAGE ketoconazole 2 % topical cream 1 applic topical BID PRN Rash 08/03/21 07/18/22 07/17/22 History mineral oil 5 ml PO BEDTIME 08/03/21 07/26/22 07/25/22 22:30 History montelukast 10 mg tablet 10 mg PO BEDTIME 08/03/21 07/26/22 07/25/22 22:30 History sennosides 8.6 mg-docusate sodium 2 tab PO BEDTIME 08/03/21 07/26/22 07/25/22 22:30 History 50 mg tablet (Senexon-S) simvastatin 10 mg tablet 10 mg PO BEDTIME 08/03/21 07/26/22 07/25/22 22:30 History verapamil 180 mg tablet,extended 180 mg PO DAILY 08/03/21 07/26/22 07/26/22 08:00 History release losartan 50 mg tablet 75 mg PO QPM #135 tabs 09/28/21 07/26/22 07/25/22 18:00 Rx guaifenesin 100 mg/5 mL oral liquid 100 - 200 mg PO Q6H PRN Congestion 10/18/21 07/26/22 07/25/22 19:00 History potassium chloride 10 mEq 10 meq PO DAILY 01/27/22 07/26/22 07/25/22 12:00 History tablet,extended release budesonide-formoterol HFA 160 2 puff inhalation BID #10.2 grams 06/07/22 07/26/22 07/26/22 08:00 Rx mcg-4.5 mcg/actuation aerosol inhaler (Symbicort) budesonide 160 mcg-glycopyr 9 2 inh inhalation BID #10.7 grams 06/27/22 07/18/22 Unknown Rx mcg-formot 4.8 mcg/actuation HFA inhaler (Breztri Aerosphere) acetaminophen 500 mg capsule 1,500 mg PO BEDTIME 07/18/22 07/26/22 07/25/22 22:00 History albuterol sulfate 90 mcg/actuation 2 puff inhalation Q6H PRN 07/18/22 07/18/22 07/18/22 History aerosol inhaler Shortness Of Breath calcium carb 333 mg-vit D3 133 1 tab PO BID 07/18/22 07/26/22 07/25/22 22:00 History unit-mag ox 133 mg-zinc oxide 5 mg tab (Tray Mag Zinc Plus D3) ferrous sulfate 325 mg (65 mg 325 mg PO BID 07/18/22 07/26/22 07/25/22 18:00 History iron) tablet furosemide 20 mg tablet (Lasix) 20 mg PO DAILY 07/18/22 07/26/22 07/25/22 08:00 History nystatin 100,000 unit/mL oral 10 ml PO Q6H 07/18/22 07/18/22 07/18/22 History suspension pantoprazole 40 mg tablet,delayed 40 mg PO DAILY 07/18/22 07/26/22 07/25/22 08:00 History release (Protonix) Allergies Allergy/AdvReac Type Severity Reaction Status Date / Time Penicillins Allergy Severe ALGY-Rash Verified 07/26/22 09:34 propoxyphene [From Darvon] Allergy Severe ALGY-Anaphy Verified 07/26/22 09:34 laxis terbinafine [From Lamisil] Allergy Intermediate ALGY-Rash Verified 07/26/22 09:34 atorvastatin [From Lipitor] AdvReac Severe ADV-Weaknes Verified 07/26/22 09:34 s Current Medications Generic Name Dose Route Start Last Admin Trade Name Freq PRN Reason Stop Dose Admin Sodium Chloride 1,000 mls @ 30 mls/hr 07/26/22 09:30 07/26/22 17:36 Sodium Chloride 0.9% IV 07/27/22 09:29 Infused .Q24H SEAN Infusion Midazolam HCl 2 mg 07/26/22 09:24 07/26/22 10:25 Midazolam 1 Mg/Ml Inj 2 Ml IVP 0.5 mg ONCE PRN Administration Preop Anxiety PFSH Acute PFSH: Medical History Asthma Breast CA Degenerative joint disease, shoulder, left Depression Diabetes Fibromyalgia High risk medication use History of nonmelanoma skin cancer HTN (hypertension) Hyperlipidemia Immunization counseling senior care current use of diuretic MELANIA on CPAP Osteoarthritis Osteoarthritis of both hands Osteoarthritis of both knees Surgical History History of appendectomy History of colonoscopy History of knee surgery History of shoulder surgery Hx of breast surgery Cancer c radiation for 6 weeks 2014 S/P hysterectomy S/P lumpectomy of breast S/P sinus surgery Family History Sister Hypertension Stroke Cancer BREAST Mother Diabetes Cancer BREAST Grandfather CAD (coronary artery disease) PATERNAL Grandmother CAD (coronary artery disease) PATERNAL Father Stroke Other Family history of premature coronary artery disease Hyperlipidemia Lung disease Rheumatoid arthritis Denies family history of Systemic lupus erythematosus (SLE) in adult Social History Smoking and tobacco status: never smoked Second hand smoke exposure: No Smoking risk assessment/counseling performed?: No Alcohol intake: never Desire information about alcohol rehabilitation?: No Counseling given: No Desire information about substance/drug rehabilitation?: No Counseling given: No Lives independently: Yes Household members: none Marital status: / Current occupational status: retired Current gender identity: Female Vitals/I&O/Wt Last Vital Signs Temp 99.8 F H 07/26/22 09:49 Pulse 64 07/26/22 11:32 Resp 17 07/26/22 11:32 BP 162/84 07/26/22 09:49 Pulse Ox 93 07/26/22 11:32 O2 Del Method Room Air 07/26/22 11:32 07/26/22 07/26/22 07/26/22 06:59 14:59 22:59 Intake Total 150 / 150 1000 / 1150 Output Total 550 / 550 Balance 150 / 150 450 / 600 Physical Exam Narrative: General: No acute distress, AO x3, right arm in sling HEENT: PERRLA, pupils bilaterally equal and reactive Chest: Normal vesicular breath sounds, no added sounds, equal good air entry bilaterally CVS: S1-S2 regular, no murmurs, no tachycardia, no gallops, no rubs Abdomen: Soft, nontender, no organomegaly, bowel sounds present Neuro: No focal deficits, no facial deformity, AO x3, power 5/5 in all limbs Urinary Catheter Management: Stein: Cath Placed During This Visit: yes Urinary Catheter Date of Insertion: 07/26/22 Urinary Catheter Time of Insertion: 13:00 Data 07/27/22 04:31 07/27/22 04:31 A&P Assessment and plan (1) Encounter for postoperative care: Post shoulder arthroplasty. Monitor hemoglobin. Physical therapy, diet, pain medication, perioperative antibiotics as per primary team. (2) Rotator cuff arthropathy of right shoulder: (3) Asthma: Keep oxygen saturation over 88%. DuoNebs every 6 hour, budesonide twice daily. On discharge we will plan to continue home inhalers. (4) Obstructive sleep apnea: Continue home CPAP 03/15. (5) HTN (hypertension): Goal blood pressure less than 140/90 mmHg. For now continue home losartan 75 mg daily, verapamil 180 mg daily. Will change uptitrate as for goal blood pressures in blood work. Last echocardiogram In August 2021 showed an EF of 55 to 60%, normal diastolic function, mild MR, mild . Lexiscan stress test in July 2022 consistent with small area of infarct in LCA territory without ischemia. (6) COPD (chronic obstructive pulmonary disease): No acute exacerbation. (7) Breast CA: (8) Diabetes: Check A1c. Patient is not on any hypoglycemic as per med rec. We will continue to monitor. Plan Fever: Perioperatively patient had a fever of 99.8 Fahrenheit. Check urinalysis, sputum culture, chest x-ray, procalcitonin, blood culture, MRSA swab, respiratory viral panel. For now continue to monitor. Patient got perioperative vancomycin and cefazolin. We will hold off on any antibiotics for now and continue to monitor. Check CBC, CMP, iron panel, vitamin B12, folate, TSH. Full code. Anticoagulation for primary team. Protonix OPD prophylaxis Thank you for involving us in care of Ms. Cespedes. Please call with any questions. Consult Attestations Medical Necessity Statement: As per primary team. Diagnoses Encounter for postoperative care Z48.89 Rotator cuff arthropathy of right shoulder M12.811 Asthma J45.909 Obstructive sleep apnea G47.33 HTN (hypertension) I10 COPD (chronic obstructive pulmonary disease) J44.9 Breast CA C50.919 Diabetes E11.9
[2022-07-26 18:56] LABS: Basophils % 0.3 %; Eosinophils # 0.1 10^3/uL (0.0-0.8); Eosinophils % 1.2 %; Hematocrit 34.6 % (37.0-47.0); Hemoglobin 11.1 g/dL (11.5-15.3); Lymphocytes # 1.1 10^3/uL (0.8-4.8); Lymphocytes % 12.7 %; Mean Corpuscular HGB Conc 32.1 g/dL (30.0-36.0); Mean Corpuscular Hemoglobin 30.5 pg (28.0-34.0); Mean Corpuscular Volume 95.1 fl (81-99); Mean Platelet Volume 11.2 fL (7.4-10.4); Monocytes # 0.7 10^3/uL (0.2-0.9); Monocytes % 8.2 %; Neutrophils # 6.78 10^3/uL (1.8-7.7); Nucleated Red Blood Cells % 0 %; Platelet Count 190 10^3/cmm (130-400); Red Blood Count 3.64 10^6/uL (4.1-5.3); Red Cell Distribution Width 15.1 % (12.1-15.1); White Blood Count 8.8 10^3/uL (4.0-10.0)
[2022-07-26] MEDS: oxyCODONE-APAP 5-325 mg Tablet 1 TAB PO (18:58)
[2022-07-26 19:22] LABS: Alanine Aminotransferase 14 U/L (0-33); Albumin Level 3.6 g/dL (3.5-5.2); Alkaline Phosphatase 84 U/L (35-105); Anion Gap 15.3 (5-19); Aspartate Amino Transferase 17 U/L (0-32); Blood Urea Nitrogen 12 mg/dL (8-23); Calcium 8.1 mg/dL (8.5-10.5); Carbon Dioxide 22 mmol/L (22-29); Chloride 106 mmol/L (98-107); Globulin 2.6 g/dL (1.3-4.6); Glucose 100 mg/dL (65-115); Iron 75 ug/dL (37-145); Osmolality Calculated 288 mOsm/kg (285-295); Percent Saturation 33.1 % (20-50); Potassium 4.3 mmol/L (3.5-5.1); Sodium 139 mmol/L (136-145); Total Bilirubin 0.4 mg/dL (0.15-1.2); Total Iron Binding Capacity 226 mcg/dl; Total Protein 6.2 g/dL (6.6-8.7); Unsaturated Iron Binding 151 ug/dL (112-347)
[2022-07-26 19:37] LABS: Procalcitonin 0.06 ng/mL (0-0.5); Vitamin B12 312 pg/mL (232-1245)
[2022-07-26 19:38] LABS: Folate Level 7.8 ng/mL (4.8-37.3)
[2022-07-26] MEDS: losartan 50 mg Tablet 75 MG PO (19:39)
[2022-07-26] MEDS: loratadine 10 mg Tablet PO (19:41)
--- NOTE | 2022-07-26 20:29 | ANE.PACU2 ---
Inpatient post-anesthesia follow up: Airway intact: Yes Vital signs: Temperature 97.7 F Pulse Rate 83 Respiratory Rate 18 Blood Pressure 157/88 Pulse Oximetry 95 Oxygen Delivery Me thod Room Air Oxygen Flow Rate 8 Fraction of Inspir ed Oxygen Hydration adequate: Yes Nausea and vomiting: No Pain level: 1 Mental status: Baseline
[2022-07-26] MEDS: budesonide 0.5 mg/2 mL Neb INHALATION (20:50)
[2022-07-26] MEDS: ipratropium-albuterol 3 mL Neb INHALATION (20:50)
[2022-07-26 20:56] LABS: Thyroid Stimulating Hormone 0.99 uIU/mL (0.27-4.20)
[2022-07-26] MEDS: oxyCODONE 5 mg IR Tab/Cap PO (21:07)
[2022-07-26 21:24] LABS: Adenovirus Not Detected (NOT DETECT); Chlamydia Pneumoniae Not Detected (NOT DETECT); Coronavirus 229E,HKU1,NL63,OC4 Not Detected (NOT DETECT); Human Metapneumovirus Not Detected (NOT DETECT); Human Rhinovirus/Enterovirus Not Detected (NOT DETECT); Influenza A Not Detected (NOT DETECT); Influenza A H1 Not Detected (NOT DETECT); Influenza A H1-2009 Not Detected (NOT DETECT); Influenza A H3 Not Detected (NOT DETECT); Influenza B Not Detected (NOT DETECT); Mycoplasma Pneumoniae Not Detected (NOT DETECT); Parainfluenza Virus Type 1 Not Detected (NOT DETECT); Parainfluenza Virus Type 2 Not Detected (NOT DETECT); Parainfluenza Virus Type 3 Not Detected (NOT DETECT); Parainfluenza Virus Type 4 Not Detected (NOT DETECT); Respiratory Syncytial Virus A Not Detected (NOT DETECT); Respiratory Syncytial Virus B Not Detected (NOT DETECT); SARS-COV-2 Not Detected (NOT DETECT)
[2022-07-26] MEDS: acetaminophen 325 mg Tablet 650 MG PO (22:25)
[2022-07-26] MEDS: simethicone 80 mg Chew PO (22:26)
[2022-07-26] MEDS: hyDROXYzine 25 mg Capsule PO (22:26)
[2022-07-26] MEDS: montelukast sodium 10 mg Tablet PO (22:26)
[2022-07-26] MEDS: gabapentin 300 mg Capsule PO (22:26)
[2022-07-27] VITALS (14 sets, daily range): BP systolic 110–167; BP diastolic 64–86; PULSE 87–98; RESP 16–18; TEMP 36.6–37.6; O2SAT 92–97
[2022-07-27] MEDS: oxyCODONE 5 mg IR Tab/Cap PO ×4 (01:15→17:06)
[2022-07-27] MEDS: ipratropium-albuterol 3 mL Neb INHALATION ×3 (02:33→13:33)
[2022-07-27] MEDS: ceFAZolin 2,000 MG in sodium chloride 0.9% (plus) 50 ML 100 MG IV ×2 (04:34→11:54)
[2022-07-27 05:12] LABS: Basophils % 0.2 %; Eosinophils # 0.2 10^3/uL (0.0-0.8); Eosinophils % 3.4 %; Hematocrit 31.6 % (37.0-47.0); Lymphocytes # 1.2 10^3/uL (0.8-4.8); Lymphocytes % 23.3 %; Mean Corpuscular HGB Conc 31.6 g/dL (30.0-36.0); Mean Corpuscular Hemoglobin 30.3 pg (28.0-34.0); Mean Corpuscular Volume 95.8 fl (81-99); Mean Platelet Volume 9.3 fL (7.4-10.4); Monocytes # 0.6 10^3/uL (0.2-0.9); Neutrophils # 3.04 10^3/uL (1.8-7.7); Neutrophils % 60.5 %; Nucleated Red Blood Cells % 0 %; Platelet Count 136 10^3/cmm (130-400); Red Cell Distribution Width 14.6 % (12.1-15.1)
[2022-07-27 05:29] LABS: Estmated Average Glucose 94; Hemoglobin A1C 4.9 % (4.0-6.0)
[2022-07-27 05:33] LABS: Alanine Aminotransferase 9 U/L (0-33); Albumin Level 3.2 g/dL (3.5-5.2); Alkaline Phosphatase 69 U/L (35-105); Anion Gap 16.9 (5-19); Aspartate Amino Transferase 16 U/L (0-32); Blood Urea Nitrogen 10 mg/dL (8-23); Carbon Dioxide 20 mmol/L (22-29); Chloride 104 mmol/L (98-107); Chol HDL Ratio 3.43 mg/dL (0.0-4.40); Cholesterol 127 mg/dL (0-200); Globulin 2.4 g/dL (1.3-4.6); Glucose 105 mg/dL (65-115); HDL Cholesterol 37 mg/dL (60-100); LDL Cholesterol Calculated 63 mg/dL (50-129); Osmolality Calculated 283 mOsm/kg (285-295); Potassium 3.9 mmol/L (3.5-5.1); Sodium 137 mmol/L (136-145); Total Bilirubin 0.4 mg/dL (0.15-1.2); Total Protein 5.6 g/dL (6.6-8.7); Triglycerides 136 mg/dL (0-150); VLDL Cholestrol Calculation 27 mg/dL (0-30)
[2022-07-27 07:06] LABS: Glucose Point of Care 121 mg/dL (70-110)
[2022-07-27 07:06] LABS: Glucose Point of Care 102 mg/dL (70-110)
--- NOTE | 2022-07-27 09:00 | PC.CHAP ---
Pastoral Care Encounter/Spiritual Assessment Type of Contact [] Declined stripper apprentice visit [] Patient/Family/Request visit [] Outpatient visit [] Follow-up visit [] Physician referral [] Code/Alert [x] Routine visit [] Staff referral [] Actively dying [] Patient sleeping [] Family support [] [] Out of room [] Palliative care [] [] Receiving care in room [] Pre-surgical visit [] Trauma [] Long length of stay [] ICU visit [] Other: Relational/Emotional Strength [x] Patient feels connected with others/family/visitors/staff [] Distress [] Loneliness/isolation [] Abandonment Spirituality of Patient [x] Person of Cynthia [x] Attends Bahai of their Cynthia [x] Believes in Prayer [] Reads Bible or Church materials [] There are Spiritual issues to be addressed [employer] Interventions [x] Prayer [x] Active listening [x] Non-anxious presence [x] Spiritual/emotional support [] Crisis/trauma care [] Spiritual counseling [] Bereavement support [] Provided bereavement packet [] Provided Bible/devotional materials [] Provided toy/stuffed animal, coloring book to patient or family member [] Provided Communion [] Anointing/[place] [] Salvation [x] Completed spiritual assessment [] Other: Impact on Illness or Injury [] Angry [] Fearful [] Anxious [] Often cries [] Exhaustion [] Unable to work [] Unable to attend judaism [] Unable to walk/stand [] Unable to read [] Unable to drive [] Unable to eat/drink [] Unable to sleep [] Unable to be with family [] Patient intubated [] Other: Summary Pt's niece was present and Pt explained she has been staying during the day in the hospital with her. Her children live further away and her niece is the only family in the local area. Pt had a lengthy surgery yesterday and today is in quite of bit of pain. Pt is of the Protestant cynthia. Time spent with patient 15m
[2022-07-27] MEDS: loratadine 10 mg Tablet PO (09:03)
[2022-07-27] MEDS: gabapentin 300 mg Capsule PO ×2 (09:03→11:56)
[2022-07-27] MEDS: FUROsemide 20 mg Tablet PO (09:03)
[2022-07-27] MEDS: ferrous sulfate EC 325 mg Tablet PO (09:03)
[2022-07-27] MEDS: pantoprazole DR 40 mg Tablet PO (09:03)
[2022-07-27] MEDS: simethicone 80 mg Chew PO (09:03)
[2022-07-27] MEDS: aspirin 325 mg EC Tablet PO (09:03)
[2022-07-27] MEDS: potassium chloride ER 10 mEq Tablet PO (09:03)
[2022-07-27] MEDS: nystatin 100,000 unit/mL UDC 5 mL 1000000 UNIT PO (09:04)
[2022-07-27] MEDS: verapamil ER 180 mg Tablet PO (10:17)
[2022-07-27 12:18] LABS: Glucose Point of Care 137 mg/dL (70-110)
--- NOTE | 2022-07-27 13:26 | PM.PN ---
Subjective Subjective: No acute events overnight. Patient has remained hemodynamically stable and afebrile. Today morning examination she is in right arm sling complaining of pain in shoulder at the OR site. States pain medications are not working well and she is used to taking more pain medications at home than what she is getting over here. Plan for discharge as per primary team. Patient has remained afebrile other than 1 episode of fever perioperatively. Labs reviewed. Vitals/I&O/Wt Last Vital Signs Temp 98.3 F 07/27/22 12:24 Pulse 98 07/27/22 12:24 Resp 18 07/27/22 12:24 BP 167/85 07/27/22 12:24 Pulse Ox 97 07/27/22 12:24 O2 Del Method Room Air 07/27/22 12:24 O2 Flow Rate 8 07/26/22 20:00 07/26/22 07/27/22 07/27/22 22:59 06:59 14:59 Intake Total 2290 / 2440 50 / 2490 240 / 240 Output Total 1625 / 1625 Balance 665 / 815 50 / 865 240 / 240 Weight last 48 hrs Weight 68.039 kg Physical Exam Narrative: General: No acute distress, AO x3, right arm in sling HEENT: PERRLA, pupils bilaterally equal and reactive Chest: Normal vesicular breath sounds, no added sounds, equal good air entry bilaterally CVS: S1-S2 regular, no murmurs, no tachycardia, no gallops, no rubs Abdomen: Soft, nontender, no organomegaly, bowel sounds present Neuro: No focal deficits, no facial deformity, AO x3, power 5/5 in all limbs Urinary Catheter Management: Stein: Cath Placed During This Visit: yes, but has since been removed by the nurse Reason for Continuing Indwelling Catheter: Perioperative Use in Selected Surgeries Urinary Catheter Date of Insertion: 07/26/22 Urinary Catheter Time of Insertion: 13:00 Date Urinary Catheter Removed: 07/27/22 Time Urinary Catheter Discontinued: 07:19 Data 07/27/22 04:31 07/27/22 04:31 Micro: Microbiology 07/26/22 18:42 Bacterial Antigens - Final Urine Kidney 07/26/22 18:42 Legionella Urinary Antigen - Final Unknown Source A&P Assessment and plan (1) Encounter for postoperative care: Post shoulder arthroplasty. Gerhard has remained stable. Physical therapy, diet, pain medication, perioperative antibiotics as per primary team. (2) Rotator cuff arthropathy of right shoulder: (3) Asthma: Keep oxygen saturation over 88%. DuoNebs every 6 hour, budesonide twice daily. On discharge we will plan to continue home inhalers. (4) Obstructive sleep apnea: Continue home CPAP 03/15. (5) HTN (hypertension): Goal blood pressure less than 140/90 mmHg. For now continue home losartan 75 mg daily, verapamil 180 mg daily. Will change uptitrate as for goal blood pressures in blood work. Last echocardiogram In August 2021 showed an EF of 55 to 60%, normal diastolic function, mild MR, mild . Lexiscan stress test in July 2022 consistent with small area of infarct in LCA territory without ischemia. (6) COPD (chronic obstructive pulmonary disease): No acute exacerbation. (7) Breast CA: (8) Diabetes: Check A1c. Patient is not on any hypoglycemic as per med rec. We will continue to monitor. Plan Fever: Perioperatively patient had a fever of 99.8 Fahrenheit. Urinalysis, chest x-ray appreciated. No active signs of infection. Respiratory viral panel negative. No leukocytosis or recurrence of fever. Patient did receive antibiotics perioperatively. We will hold off on further antibiotics for now. Patient is stable to be discharged from medical standpoint. She is to continue taking her oral medications including antihypertensives at home dose as before. She is to follow-up with a primary care provider within next 1 week. She is advised to monitor her blood pressure daily at home and maintain a blood pressure diary. She is also counseled that goal blood pressure is less than 140/90 mmHg. Full code. Anticoagulation for primary team. Protonix OPD prophylaxis Thank you for involving us in care of Ms. Cespedes. Please call with any questions. Attestations Medical Necessity Statement*: As per primary team Diagnoses Encounter for postoperative care Z48.89 Rotator cuff arthropathy of right shoulder M12.811 Asthma J45.909 Obstructive sleep apnea G47.33 HTN (hypertension) I10 COPD (chronic obstructive pulmonary disease) J44.9 Breast CA C50.919 Diabetes E11.9
--- NOTE | 2022-07-27 18:04 | PM.DCS ---
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 Very dished glenoid Procedure done: Reverse right shoulder arthroplasty with long head of biceps tenotomy and tenodesis Implants: [employer] reverse shoulder system with a size 28 reunion RSA glenoid base plate with a 24 mm x 6.5 mm center screw, a 4.5 mm x 20 mm superior, 2 x 4.5 x 16 mm anterior and posterior screw, a concentric glenosphere size 32 with 2 mm offset. A reunion S humeral stem with a 12 mm diameter by 96 mm length and a humeral cup size 32 mm x 4 mm with a humeral insert size 32 mm x 4 mm. (2) Rotator cuff arthropathy of right shoulder: Status: Acute (3) Asthma: Status: Acute (4) Obstructive sleep apnea: Status: Acute (5) HTN (hypertension): Status: Acute (6) COPD (chronic obstructive pulmonary disease): Status: Acute (7) Breast CA: Status: Acute (8) Diabetes: Status: Acute Reason for Visit Reason for Visit: M19.019 Brief History: This 77-year-old woman presented with severe pain in her right shoulder.? She has previously had left reverse shoulder arthroplasty, and she has done well with this.? With regard to her right shoulder, she had had multiple injections with decreasing benefit.? Her shoulder was quite limited in function and and range of motion.? She therefore wished to proceed with reverse shoulder arthroplasty to this right shoulder.? Risks and complications of this procedure were discussed with the patient and she wished to proceed.? Consents were signed and questions were answered. Physical Exam Const: COMMON NORMALS: no acute distress, average body habitus, patient oriented x3 and alert GENERAL APPEARANCE: cooperative and comfortable ORIENTATION/CONSCIOUSNESS: Yes awake HENMT: COMMON NORMALS: normocephalic and atraumatic HEAD & SCALP: normocephalic and atraumatic Eye: GENERAL EYE: appearance normal, both eyes and all related structures Chest: COMMONS NORMALS: normal inspection of the chest Resp: COMMON NORMALS: normal respiratory effort EFFORT & INSPECTION: Yes able to speak in complete sentences and Yes symmetric chest movement Extremity: RIGHT UPPER EXTREMITY: Yes shoulder joint (Ecchymosis around the surgical site) Right shoulder: Yes Right shoulder joint inspection exam (Dressing is dry and intact), Yes Right shoulder joint ROM exam (Not evaluated) and Yes Right shoulder joint neurovascular exam (Intact distally) Neuro: COMMON NORMALS: patient oriented x3 SENSORIUM/ORIENTATION: Yes alert Psych: COMMON NORMALS: mental status grossly normal APPEARANCE: Yes grossly normal ATTITUDE: Yes calm and Yes engaged ATTENTION/CONCENTRATION: Yes attention grossly intact Skin: COMMON NORMALS: no rashes or lesions noted GENERAL SKIN EXAM: no rashes or lesions noted Urinary Catheter Management: Stein: Cath Placed During This Visit: yes, but has since been removed by the nurse Reason for Continuing Indwelling Catheter: Decision to DC Catheter Urinary Catheter Date of Insertion: 07/26/22 Urinary Catheter Time of Insertion: 13:00 Date Urinary Catheter Removed: 07/27/22 Time Urinary Catheter Discontinued: 06:30 Discharge Data Studies Completed and Pending Completed Studies During Hospitalization Category Date Time Status XR shoulder RT min 2V* [id number] Routine Exams 07/26/22 Completed Pending at discharge Category Date Time Status Blood Cultures ([facility]) Routine Lab 07/26/22 18:32 Received Blood Cultures ([facility]) Routine Lab 07/26/22 18:40 Received Radiology Impressions Shoulder X-Ray 07/26/22 00:00 Impression: Right shoulder arthroplasty. Laboratory Results WBC 5.0 10^3/uL (4.0-10.0) 07/27/22 04:31 RBC 3.30 10^6/uL (4.1-5.3) L 07/27/22 04:31 Hgb 10.0 g/dL (11.5-15.3) L 07/27/22 04:31 Hct 31.6 % (37.0-47.0) L 07/27/22 04:31 MCV 95.8 fl (81-99) 07/27/22 04:31 MCH 30.3 pg (28.0-34.0) 07/27/22 04:31 MCHC 31.6 g/dL (30.0-36.0) 07/27/22 04:31 RDW 14.6 % (12.1-15.1) 07/27/22 04:31 Plt Count 136 10^3/cmm (130-400) 07/27/22 04:31 MPV 9.3 fL (7.4-10.4) 07/27/22 04:31 Neut % (Auto) 60.5 % 07/27/22 04:31 Lymph % (Auto) 23.3 % 07/27/22 04:31 [place]edar % (Auto) 12.0 % 07/27/22 04:31 Eos % (Auto) 3.4 % 07/27/22 04:31 Baso % (Auto) 0.2 % 07/27/22 04:31 Neut # (Auto) 3.04 10^3/uL (1.8-7.7) 07/27/22 04:31 Lymph # (Auto) 1.2 10^3/uL (0.8-4.8) 07/27/22 04:31 [place]edar # (Auto) 0.6 10^3/uL (0.2-0.9) 07/27/22 04:31 Eos # (Auto) 0.2 10^3/uL (0.0-0.8) 07/27/22 04:31 Baso # (Auto) 0.0 10^3/uL (0.0-0.1) 07/27/22 04:31 Nucleated RBC % (auto) 0 % 07/27/22 04:31 Nucleated RBCs # 0.0 /100WBC 07/27/22 04:31 Sodium 137 mmol/L (136-145) 07/27/22 04:31 Potassium 3.9 mmol/L (3.5-5.1) 07/27/22 04:31 Chloride 104 mmol/L (98-107) 07/27/22 04:31 Carbon Dioxide 20 mmol/L (22-29) L 07/27/22 04:31 Anion Gap 16.9 (5-19) 07/27/22 04:31 BUN 10 mg/dL (8-23) 07/27/22 04:31 Creatinine 0.8 mg/dL (0.5-0.9) 07/27/22 04:31 GFR Calculation Not Reportable 07/27/22 04:31 Glucose 105 mg/dL (65-115) 07/27/22 04:31 POC Glucose 137 mg/dL (70-110) H 07/27/22 12:05 Estimat Average Glucose 94 07/27/22 04:31 Hemoglobin A1c 4.9 % (4.0-6.0) 07/27/22 04:31 Calculated Osmolality 283 mOsm/kg (285-295) L 07/27/22 04:31 Calcium 8.0 mg/dL (8.5-10.5) L 07/27/22 04:31 Iron 75 ug/dL (37-145) 07/26/22 18:32 TIBC 226 mcg/dl 07/26/22 18:32 % Saturation 33.1 % (20-50) 07/26/22 18:32 Unsat Iron Binding 151 ug/dL (112-347) 07/26/22 18:32 Total Bilirubin 0.4 mg/dL (0.15-1.2) 07/27/22 04:31 AST 16 U/L (0-32) 07/27/22 04:31 ALT 9 U/L (0-33) 07/27/22 04:31 Alkaline Phosphatase 69 U/L (35-105) 07/27/22 04:31 Total Protein 5.6 g/dL (6.6-8.7) L 07/27/22 04:31 Albumin 3.2 g/dL (3.5-5.2) L 07/27/22 04:31 Globulin 2.4 g/dL (1.3-4.6) 07/27/22 04:31 Triglycerides 136 mg/dL (0-150) 07/27/22 04:31 Cholesterol 127 mg/dL (0-200) 07/27/22 04:31 LDL Cholesterol, Calc 63 mg/dL (50-129) 07/27/22 04:31 Total VLDL Cholesterol 27 mg/dL (0-30) 07/27/22 04:31 HDL Cholesterol 37 mg/dL (60-100) L 07/27/22 04:31 Cholesterol/HDL Ratio 3.43 mg/dL (0.0-4.40) 07/27/22 04:31 Vitamin B12 312 pg/mL (232-1245) 07/26/22 18:32 Folate 7.8 ng/mL (4.8-37.3) 07/26/22 18:32 Procalcitonin 0.06 ng/mL (0-0.5) 07/26/22 18:32 TSH 0.99 uIU/mL (0.27-4.20) 07/26/22 18:32 Urine Color Yellow (Yellow) 07/26/22 09:30 Urine Appearance Clear (CLEAR) 07/26/22 09:30 Urine pH 8 (5-7) H 07/26/22 09:30 Ur Specific [place] 1.020 (1.005-1.030) 07/26/22 09:30 Urine Protein Neg (Negative) 07/26/22 09:30 Urine Glucose (UA) Norm (Normal) 07/26/22 09:30 Urine Ketones Negative (Negative) 07/26/22 09:30 Urine Blood Neg (Negative) 07/26/22:30 Urine Nitrate Negative (Negative) 07/26/22:30 Urine Bilirubin Neg (Negative) 07/26/22 09:30 Prot Sulfosalicylic Acd Negative (Negative) 07/26/22:30 Urine Urobilinogen Neg mg/dL (Negative) 07/26/22 09:30 Ur Leukocyte Esterase Negative (Negative) 07/26/22 09:30 Nasal Influ A H1 2009 PCR Not detected (NOT DETECT) 07/26/22 19:10 Adenovirus (PCR) Not detected (NOT DETECT) 07/26/22 19:10 C. pneumoniae DNA (PCR) Not detected (NOT DETECT) 07/26/22 19:10 Coronavirus 229E (PCR) Not detected (NOT DETECT) 07/26/22 19:10 Human Metapneumovir PCR Not detected (NOT DETECT) 07/26/22 19:10 Influenza A (H1) PCR Not detected (NOT DETECT) 07/26/22 19:10 Influenza A (H3) PCR Not detected (NOT DETECT) 07/26/22 19:10 Influenza Type A (PCR) Not detected (NOT DETECT) 07/26/22 19:10 Influenza Type B (PCR) Not detected (NOT DETECT) 07/26/22 19:10 M. pneumoniae (PCR) Not detected (NOT DETECT) 07/26/22 19:10 Parainfluenza 1 (PCR) Not detected (NOT DETECT) 07/26/22 19:10 Parainfluenza 2 (PCR) Not detected (NOT DETECT) 07/26/22 19:10 Parainfluenza 3 (PCR) Not detected (NOT DETECT) 07/26/22 19:10 Parainfluenza 4 (PCR) Not detected (NOT DETECT) 07/26/22 19:10 RSV Type A (PCR) Not detected (NOT DETECT) 07/26/22 19:10 RSV Type B (PCR) Not detected (NOT DETECT) 07/26/22 19:10 Entero/Rhino (PCR) Not detected (NOT DETECT) 07/26/22 19:10 SARS-CoV-2 (PCR) Not detected (NOT DETECT) 07/26/22 19:10 Vitals Last Vital Signs Temp 99.6 F 07/27/22 16:01 Pulse 97 07/27/22 16:01 Resp 16 07/27/22 17:06 BP 121/67 07/27/22 16:01 Pulse Ox 92 07/27/22 16:01 O2 Del Method Room Air 07/27/22 16:01 O2 Flow Rate 8 07/26/22 20:00 Discharge Plan Discharge Patient Disposition: Home Health Service Condition: Stable Prescriptions: New hydrocodone-acetaminophen 10-325 mg tablet 1 tab PO Q4H PRN (Reason: pain) 7 Days Qty: 30 0RF Continued gabapentin 300 mg capsule See Rx Instructions .ROUTE .COMPLEX Rx Instructions: 300 mg PO QAM, 300MG PO AT NOON AND 600MG PO BEDTIME citalopram 10 mg tablet 10 mg PO BEDTIME loratadine [Claritin] 10 mg tablet 10 mg PO BID nortriptyline 25 mg capsule 25 mg PO BEDTIME oxycodone-acetaminophen [Percocet] 5-325 mg tablet 1 tab PO TID PRN (Reason: Pain) (DME) Diabetic Shoes with 3 pairs of inserts See Rx Instructions .ROUTE .MEDSUPPLY Qty: 1 0RF Rx Instructions: As directed by [facility]a [facility] potassium chloride 10 mEq tablet extended release 10 meq PO DAILY Breztri Aerosphere 160-9-4.8 mcg/actuation HFA aerosol inhaler 2 inh inhalation BID Qty: 10.7 3RF losartan 50 mg tablet 75 mg PO QPM Qty: 135 3RF budesonide-formoterol [Symbicort] 160-4.5 mcg/actuation HFA aerosol inhaler 2 puff inhalation BID Qty: 10.2 5RF [place] Chews 1 tab PO PRN PRN (Reason: Stomach Upset) mineral oil Oil 5 ml PO BEDTIME sennosides-docusate sodium [Senexon-S] 8.6-50 mg tablet 2 tab PO BEDTIME simvastatin 10 mg tablet 10 mg PO BEDTIME verapamil 180 mg tablet extended release 180 mg PO DAILY aspirin 81 mg Tablet,Delayed Release (Dr/Ec) 81 mg PO QAM montelukast 10 mg tablet 10 mg PO BEDTIME ipratropium bromide 21 mcg (0.03 %) spray,non-aerosol 2 spray INTRANASAL TID PRN (Reason: NASAL DRAINAGE) Probiotic 1 cap PO BID ketoconazole 2 % cream 1 applic topical BID PRN (Reason: Rash) fluticasone propionate [Flonase Allergy Relief] 50 mcg/actuation spray,suspension 2 spray INTRANASAL DAILY guaifenesin 100 mg/5 mL liquid 100 - 200 mg PO Q6H PRN (Reason: Congestion) nystatin 100,000 unit/mL suspension 10 ml PO Q6H Rx Instructions: SWISH AND SWALLOW ferrous sulfate 325 mg (65 mg iron) tablet 325 mg PO BID albuterol sulfate 90 mcg/actuation HFA aerosol inhaler 2 puff INHALATION Q6H PRN (Reason: Shortness Of Breath) Tray Mag Zinc Plus D3 333 mg-133 unit -133 mg-5 mg Tablet 1 tab PO BID pantoprazole [Protonix] 40 mg tablet,delayed release (DR/EC) 40 mg PO DAILY furosemide [Lasix] 20 mg tablet 20 mg PO DAILY acetaminophen 500 mg Capsule 1,500 mg PO BEDTIME Discharge Orders: Discharge Order (Routine); Ordered 07/27/22 Ordered By: Keiry Mehta Referrals: [facility] [Outside] Keiry Mehta MD [Physician] - 08/09/22 8:45 am Discharge Diet: Advance as tolerated and Usual diet Discharge Activity: Limit activity as instructed and As per PT/OT instructions Patient Instructions: Hydrocodone/Acetaminophen (By mouth), Joint Replacement Surgery (GEN), Shoulder Arthroplasty (GEN), Opioid Safety Activity Restrictions/Additional Instructions: Ice to right shoulder. You may change the dressing as it peels up. Follow reverse shoulder protocol papers were given. Discharge Attestations Time Spent in Discharge Care*: greater than 30 min Specific Discharge Activities: educating patient, documenting/other paperwork and evaluating patient/reviewing data Quality Metrics Clinical Quality Measures [ No reported AMI, CVA or VTE this stay] Coding Level of Care Code Acute Code for Chg Fwd Diagnoses Status post reverse arthroplasty of right shoulder Z96.611 Rotator cuff arthropathy of right shoulder M12.811 Asthma J45.909 Obstructive sleep apnea G47.33 HTN (hypertension) I10 COPD (chronic obstructive pulmonary disease) J44.9 Breast CA C50.919 Diabetes E11.9
== END 2022-07-27 18:20 | disposition home health service (06) ==
LOC: MEDSURG 17:09
PROVIDERS: Anesthesiology; Student in an Organized Health Care Education/Training Program; Admitting Provider Specialist; PCP Internal Medicine; Visit Provider Specialist
PROC: (CPT 23472; principal; 2022-07-26 10:45)
DX: M19.012 Primary osteoarthritis, left shoulder (principal); M25.712 Osteophyte, left shoulder; M85.812 Other specified disorders of bone density and structure, left shoulder; R50.9 Fever, unspecified; E11.9 Type 2 diabetes mellitus without complications; I11.0 Hypertensive heart disease with heart failure; I50.30 Unspecified diastolic (congestive) heart failure; J45.909 Unspecified asthma, uncomplicated; G47.33 Obstructive sleep apnea (adult) (pediatric); J44.9 Chronic obstructive pulmonary disease, unspecified; C50.919 Malignant neoplasm of unspecified site of unspecified female breast; I35.0 Nonrheumatic aortic (valve) stenosis; E78.5 Hyperlipidemia, unspecified; Z79.82 Long term (current) use of aspirin; Z88.0 Allergy status to penicillin; I44.0 Atrioventricular block, first degree
CPT/HCPCS: 23472; 36415; 36416; 51702; 73030; 76000; 80048; 80053; 80061; 81003; 82607; 82746; 82962; 83036; 83540; 83550; 84145; 84443; 85025; 86403; 87040; 87449; 87486; 87581; 87633; 87641; 94640; 97166; C1776 ×2; G0378; J0131; J0690; J2250; J2370; J2704; J2795; J3010; J3370; J3490; J7030; J7626

== ENCOUNTER → 2022-08-09 08:44 | Outpatient (BNVA) | payer MEDICARE, OTHER, SELFPAY | PROVIDERS: PCP Internal Medicine; Visit Provider Nurse Practitioner Family | DX: Z96.611 Presence of right artificial shoulder joint (principal) | CPT/HCPCS: 73030; 99024 ==

== ENCOUNTER → 2022-09-07 11:02 | Outpatient (BNVA) | payer MEDICARE, OTHER, SELFPAY | PROVIDERS: PCP Internal Medicine; Visit Provider Specialist | DX: Z96.611 Presence of right artificial shoulder joint (principal); M12.811 Other specific arthropathies, not elsewhere classified, right shoulder | CPT/HCPCS: 73030; 99024 ==

== ENCOUNTER → 2022-10-06 14:44 | Outpatient (BNVA) | payer MEDICARE, OTHER, SELFPAY | PROVIDERS: PCP Internal Medicine; Visit Provider Specialist | DX: M17.12 Unilateral primary osteoarthritis, left knee (principal) | CPT/HCPCS: 20610; J7326 ==

== ENCOUNTER → 2022-10-27 10:52 | Outpatient (BNVA) | payer MEDICARE, OTHER, SELFPAY | PROVIDERS: PCP Internal Medicine; Visit Provider Nurse Practitioner Family | DX: D69.2 Other nonthrombocytopenic purpura (principal); L57.0 Actinic keratosis; L82.1 Other seborrheic keratosis; L81.4 Other melanin hyperpigmentation; D22.5 Melanocytic nevi of trunk; L85.3 Xerosis cutis; L57.8 Other skin changes due to chronic exposure to nonionizing radiation; Z85.828 Personal history of other malignant neoplasm of skin; Z80.8 Family history of malignant neoplasm of other organs or systems | CPT/HCPCS: 17000; 17003; 99213 ==

== ENCOUNTER → 2022-10-31 10:56 | Outpatient (BNVA) | payer MEDICARE, OTHER, SELFPAY | PROVIDERS: PCP Internal Medicine; Visit Provider Specialist | DX: M17.12 Unilateral primary osteoarthritis, left knee (principal) | CPT/HCPCS: 20610; 73560; 73565; 99214; J1100; J2795; J3301 ==

== ENCOUNTER → 2022-11-08 10:22 | Outpatient (BNVA) | payer MEDICARE, OTHER, SELFPAY | PROVIDERS: PCP Internal Medicine; Visit Provider Specialist | DX: Z96.611 Presence of right artificial shoulder joint (principal); Z96.612 Presence of left artificial shoulder joint | CPT/HCPCS: 73030; 99213 ==

== ENCOUNTER 2022-12-09 10:31 | Outpatient (CLI) | payer MEDICARE, OTHER, SELFPAY ==
--- NOTE | 2022-12-09 10:41 | MM_ITS ---
WS: [id number] VIEWS: MLO, CC, and ML views both breasts. 3D digital tomosynthesis is also included in this exam. Comparison made with prior exam of 05/06/2016, 05/09/2017, 06/12/2018, 06/19/2019, 07/03/2020, 08/04/2021.. Findings: No suspicious mass or clustered microcalcification. Stable appearing postoperative changes in the LEF T breast. No new suspicious finding in either breast. There are scattered areas of fibroglandular den sity Impression: MM/[place] [id number] BI-RADS: 2-Benign FOLLOW-UP: 1 Year Follow-up This mammogram was also analyzed by the Computer Aided Detection System R2 Imag e Driver License Technician.
== END 2022-12-09 10:32 | disposition home or self-care (01) ==
PROVIDERS: PCP Internal Medicine; Visit Provider Internal Medicine
DX: Z85.3 Personal history of malignant neoplasm of breast (principal)
CPT/HCPCS: 77062; G0279

== ENCOUNTER 2022-12-13 10:48 | Outpatient (CLI) | payer MEDICARE, OTHER, SELFPAY ==
--- NOTE | 2022-12-13 11:00 | CT_ITS ---
WS: [id number] CT LEFT KNEE, NONCONTRAST TECHNIQUE: Noncontrast CT of the LEFT knee to include the LEFT hip and ankle. [facility] CLINICAL INFORMATION: left knee pain COMPARISON: None. DLP: 922.[address] scans at [facility] use at least one of these dose optimization techniques: automated e xposure control; mA and/or kV adjustment per patient size (includes targeted exams where dose is matc hed to clinical indication); or iterative reconstruction. FINDINGS: Mild degenerative arthritis sacroiliac joints. Mild to moderate degenerative arthritis both hips. Nor mal pubic rami. Vascular calcification. Hypertrophic patella. Moderate to advanced tricompartmental a rthritis LEFT knee. Small suprapatellar effusion. Hypertrophic changes along the joint line. Vascular calcification. Prior postoperative changes RIGHT TKA. Sigmoid diverticulosis. IMPRESSION: Images obtained for preoperative purposes.
== END 2022-12-13 10:49 | disposition home or self-care (01) ==
PROVIDERS: PCP Internal Medicine; Visit Provider Specialist
DX: M17.12 Unilateral primary osteoarthritis, left knee (principal)
CPT/HCPCS: 73700

== ENCOUNTER → 2022-12-29 10:33 | Outpatient (BNVA) | payer MEDICARE, OTHER, SELFPAY | PROVIDERS: PCP Internal Medicine; Visit Provider Internal Medicine Pulmonary Disease | DX: G47.33 Obstructive sleep apnea (adult) (pediatric) (principal); J45.909 Unspecified asthma, uncomplicated; I50.9 Heart failure, unspecified; Z01.811 Encounter for preprocedural respiratory examination; Z99.89 Dependence on other enabling machines and devices | CPT/HCPCS: 99214 ==

== ENCOUNTER → 2023-01-05 12:37 | Outpatient (BNVA) | payer MEDICARE, OTHER, SELFPAY | PROVIDERS: PCP Internal Medicine; Visit Provider Specialist | DX: M19.011 Primary osteoarthritis, right shoulder (principal); M17.0 Bilateral primary osteoarthritis of knee; E78.5 Hyperlipidemia, unspecified | CPT/HCPCS: 36415; 80053; 81003; 85025; 99213 ==

== ENCOUNTER → 2023-01-24 14:51 | Outpatient (BNVA) | payer MEDICARE, OTHER, SELFPAY | PROVIDERS: PCP Internal Medicine; Visit Provider Family Medicine | DX: Z01.818 Encounter for other preprocedural examination (principal) | CPT/HCPCS: 81000 ==

== ENCOUNTER → 2023-01-26 11:20 | Outpatient (BNVA) | payer MEDICARE, OTHER, SELFPAY | PROVIDERS: PCP Internal Medicine; Visit Provider Nurse Practitioner Family | DX: D69.2 Other nonthrombocytopenic purpura (principal); L57.0 Actinic keratosis; L82.1 Other seborrheic keratosis; Z85.828 Personal history of other malignant neoplasm of skin; Z80.8 Family history of malignant neoplasm of other organs or systems; L81.4 Other melanin hyperpigmentation; D22.5 Melanocytic nevi of trunk; L85.3 Xerosis cutis; L57.8 Other skin changes due to chronic exposure to nonionizing radiation | CPT/HCPCS: 17000; 99213 ==

== ENCOUNTER 2023-01-31 14:12 | Observation (INO) | payer MEDICARE, OTHER, SELFPAY ==
[2023-01-31] VITALS (15 sets, daily range): BP systolic 114–167; BP diastolic 54–106; PULSE 64–80; RESP 12–19; TEMP 36.4–36.5; O2SAT 93–98; BMI 26.9
[2023-01-31] MEDS: sodium chloride 0.9% 1,000 ML 30 ML IV (08:49)
[2023-01-31] MEDS: acetaminophen 1,000 MG/100 ML PIGGYBACK 400 MG IV ×2 (09:08→16:40)
[2023-01-31] MEDS: CELEcoxib 200 mg Capsule 400 MG PO (09:18)
--- NOTE | 2023-01-31 09:21 | W.PM.OPSUD ---
Surgery/Procedure H&P Update DATE OF PROCEDURE: January 31, 2023 DATE H&P PERFORMED: 01/24/23 H&P UPDATE INFORMATION: I have reviewed H&P completed within last 30 days, I have examined patient prior to procedure, No changes to prior documentation and H&P is in [facility] on date indicated PREOP DIAGNOSIS: Primary osteoarthritis left knee PLANNED PROCEDURE: Operation Date: 01/31/23 10:00 Proposed Procedures p LEFT TOTAL KNEE WITH RADHA GUIDANCE 40149,M17.10(Left) - Keiry Mehta MD Related Problem List Diagnoses (1) Primary osteoarthritis of left knee:
--- NOTE | 2023-01-31 09:52 | P.ANESASSM_ITS ---
Pre-Anesthetic Assessment Height/Weight: Height 1.57 m Weight 66.678 kg Temp Pulse Resp BP Pulse Ox O2 Del Method 97.6 F 80 18 164/106 95 Room Air 01/31/23 08:46 01/31/23 08:46 01/31/23 08:46 01/31/23 08:46 01/31/23 08:46 01/31/23 09:17 Preop Diagnosis: Primary osteoarthritis left knee Operation Date: 01/31/23 10:00 Proposed Procedures p LEFT TOTAL KNEE WITH RADHA GUIDANCE 12845,M17.10(Left) - Keiry Mehta MD Familial anesthetic complications: none Was Beta Suarabh taken within 24 hours: N/A Was Clonidine taken within 24 hours: N/A Last intake: Intake Last Liquid Date 01/30/23 Last Liquid Time 21:30 Last Solid Date 01/30/23 Last Solid Time 21:30 Social No alcohol and No tobacco Exam alert, oriented x 3, clear to auscultation bilaterally and regular rate & rhythm Airway Submandibular: within normal limits Cervical ROM: within normal limits Mallampati: Class II Dentition: partials Pulmonary Asthma and Sleep Apnea CV/HEM Anemia and Hypertension GI Gastroesophageal Reflux Disease Metabolic Diabetes Mellitus and Hyperlipidemia [facility] [place] Osteoarthritis/DJD Neuropsych Neuropathy Anesthetic Plan ASA status: 3 Anesthesia: Regional (specify below) (SAB with left adductor blk) Medications/Allergies Home Medications Medication Instructions Recorded Confirmed Last Taken Type citalopram 10 mg tablet 10 mg PO BEDTIME 05/29/19 01/30/23 01/29/23 History gabapentin 300 mg capsule See Rx Instructions .Route .COMPLEX 05/29/19 01/30/23 01/31/23 07:00 History loratadine 10 mg tablet (Claritin) 10 mg PO BID 05/30/19 01/30/23 01/31/23 07:00 History nortriptyline 25 mg capsule 25 mg PO BEDTIME 07/30/19 01/30/23 01/30/23 History oxycodone-acetaminophen 5 mg-325 1 tab PO TID PRN Pain 11/14/19 01/30/23 01/30/23 07:00 History mg tablet (Percocet) Diabetic Shoes with 3 pairs of #1 ea 04/19/21 01/05/23 12/21/21 Rx inserts Cordelia-[place] Chews 1 tab PO PRN PRN Stomach Upset 08/03/21 01/30/23 01/29/23 History Probiotic 1 cap PO BID 08/03/21 01/30/23 01/30/23 History aspirin 81 mg tablet,delayed 81 mg PO QAM 08/03/21 01/30/23 01/24/23 History release fluticasone propionate 50 2 spray intranasal DAILY 08/03/21 01/30/23 01/31/23 History mcg/actuation nasal spray,suspension (Flonase Allergy Relief) ipratropium bromide 21 mcg (0.03 2 spray intranasal TID PRN NASAL 08/03/21 01/30/23 01/31/23 History %) nasal spray DRAINAGE ketoconazole 2 % topical cream 1 applic topical BID PRN Rash 08/03/21 01/30/23 01/30/23 History mineral oil 5 ml PO BEDTIME 08/03/21 01/30/23 01/30/23 History montelukast 10 mg tablet 10 mg PO BEDTIME 08/03/21 01/30/23 01/30/23 History sennosides 8.6 mg-docusate sodium 2 tab PO BEDTIME 08/03/21 01/30/23 01/30/23 History 50 mg tablet (Senexon-S) simvastatin 10 mg tablet 10 mg PO BEDTIME 08/03/21 01/30/23 01/30/23 History verapamil 180 mg tablet,extended 180 mg PO DAILY 08/03/21 01/30/23 01/31/23 History release guaifenesin 100 mg/5 mL oral liquid 100 - 200 mg PO Q6H PRN Congestion 10/18/21 01/31/23 07/25/22 19:00 History potassium chloride 10 mEq 10 meq PO DAILY 01/27/22 01/30/23 01/30/23 History tablet,extended release acetaminophen 500 mg capsule 1,500 mg PO BEDTIME 07/18/22 01/30/23 01/30/23 History calcium carb 333 mg-vit D3 133 1 tab PO BID 07/18/22 01/30/23 01/30/23 History unit-mag ox 133 mg-zinc oxide 5 mg tab (Tray Mag Zinc Plus D3) ferrous sulfate 325 mg (65 mg 325 mg PO BID 07/18/22 01/30/23 01/30/23 History iron) tablet nystatin 100,000 unit/mL oral 10 ml PO Q6H 07/18/22 01/30/23 01/30/23 History suspension pantoprazole 40 mg tablet,delayed 40 mg PO DAILY 07/18/22 01/30/23 01/31/23 History release (Protonix) albuterol sulfate 90 mcg/actuation 2 puff inhalation Q6H PRN 09/12/22 01/30/23 01/31/23 07:00 Rx aerosol inhaler Shortness Of Breath #8.5 grams budesonide 160 mcg-glycopyr 9 2 inh inhalation BID #10.7 grams 09/21/22 01/30/23 01/31/23 Rx mcg-formot 4.8 mcg/actuation HFA inhaler (Breztri Aerosphere) losartan 50 mg tablet 75 mg PO QPM #135 tabs 10/24/22 01/30/23 01/30/23 Rx furosemide 20 mg tablet (Lasix) 20 mg PO DAILY #90 tabs 12/29/22 01/30/23 01/30/23 Rx Allergies Allergy/AdvReac Type Severity Reaction Status Date / Time Penicillins Allergy Severe ALGY-Rash Verified 01/24/23 14:59 propoxyphene [From Darvon] Allergy Severe ALGY-Anaphy Verified 01/24/23 14:59 laxis terbinafine [From Lamisil] Allergy Intermediate ALGY-Rash Verified 01/24/23 14:59 atorvastatin [From Lipitor] AdvReac Severe ADV-Weaknes Verified 01/24/23 14:59 s Current Medications Generic Name Dose Route Start Last Admin Trade Name Freq PRN Reason Stop Dose Admin Sodium Chloride 1,000 mls @ 30 mls/hr 01/31/23 08:45 01/31/23 08:49 Sodium Chloride 0.9% IV 02/01/23 08:44 30 mls/hr .Q24H SEAN Administration PFSH Anesthesia Medical History Asthma Breast CA Degenerative joint disease, shoulder, left Depression Diabetes Fibromyalgia High risk medication use History of nonmelanoma skin cancer HTN (hypertension) Hyperlipidemia 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 MELANIA on CPAP Osteoarthritis Osteoarthritis of both hands Osteoarthritis of both knees Surgical History History of appendectomy History of colonoscopy History of knee surgery History of shoulder surgery Hx of breast surgery Cancer c radiation for 6 weeks 2014 S/P hysterectomy S/P lumpectomy of breast S/P sinus surgery Family History Sister Hypertension Stroke Cancer BREAST Mother Diabetes Cancer BREAST Grandfather CAD (coronary artery disease) PATERNAL Grandmother CAD (coronary artery disease) PATERNAL Father Stroke Other Family history of premature coronary artery disease Hyperlipidemia Lung disease Rheumatoid arthritis Denies family history of Systemic lupus erythematosus (SLE) in adult Social History Smoking and tobacco/nicotine status: never used tobacco/nicotine Second hand smoke exposure: No Alcohol intake: never Substance/Drug Use: never Lives independently: Yes Household members: none Marital status: / Current occupational status: retired Do you think of yourself as: Straight/Heterosexual Current gender identity: Female Data Anesthesia Cardiac Studies: Echocardiogram 08/17/21 Sestamibi Stress Test (Cardiology) 07/12
[2023-01-31] MEDS: ceFAZolin 2,000 MG in sodium chloride 0.9% (plus) 50 ML 100 MG IV ×2 (10:32→17:29)
[2023-01-31] MEDS: vancomycin 1,000 MG SDV 1000 MG XX (11:41)
[2023-01-31] MEDS: vancomycin 1,000 MG SDV 2000 MG IRRIGATION (11:42)
[2023-01-31] MEDS: BUPivacaine 0.5% INJ 30 mL INJECTION (11:43)
[2023-01-31] MEDS: BUPivacaine liposome 13.3 mg/mL SDV 10 mL 266 MG INFILTRATI (11:43)
--- NOTE | 2023-01-31 12:36 | ANES.PROC ---
Anesthesia Procedures Procedure/Date: 01/31/23 Nerve Block ^: Nerve Block 1: Main Anesthesia: spinal anesthesia block Time Out Performed: Yes Consent: requested by attending/covering physician, from patient, risks and benefits reviewed and patient agrees to proceed Nerve block location: adductor canal (left) Anesthesia monitors applied: pulse oximetry, EKG, BP cuff and oxygen Nerve block position: supine Anesthetic Used: ropivicaine 0.5% Amount of anesthesia used (mL): 20 Ultrasound used to: recognize landmarks Nerve Stimulator Used?: No Interscalene/Femoral BLK: 4 stimuplex 21 g needle used for position and inplane approach Injection: neg aspiration of heme Patient Tolerated Procedure: well Complications: none
--- NOTE | 2023-01-31 14:09 | PC.NURSE ---
BEFORE CLOSING, MARGARITO BROUSSARD NOTICED PETECHIAE TO PATIENT'S OPERATIVE KNEE (LEFT)
--- NOTE | 2023-01-31 14:15 | XR_ITS ---
WS: [id number] Exam: XR knee LT 1-2V [id number] Date/Time of Exam: 01/31/2023 2:18 PM Reason For Exam: Status post total knee arthroplasty Comparison 10/31/2022. Total LEFT knee arthroplasty noted in excellent position. Postoperative changes in the adjacent soft tissues. Anterior surgical skin clips. IMPRESSION: 1. LEFT total knee replacement in excellent position.
--- NOTE | 2023-01-31 14:28 | PM.OP ---
Operative Report Date of procedure: January 31, 2023 Pre-op diagnosis: Primary osteoarthritis right knee Post-op diagnosis: Primary osteoarthritis right knee Post-op findings: Significant degenerative osteoarthritic change with cartilage loss. Procedure done: Right total knee arthroplasty with Valdemar guidance Implants: The [employer] total knee system with a size 2 triathlon beaded cruciate retaining femur right, a triathlon titanium tibial component size?2 beaded, a triathlon X3 tibial bearing CS insert size 2 X 9 mm and a beaded triathlon titanium asymmetric patella size 29 x 9 mm Specimens removed/disposition: None Surgeon: Keiry Mehta MD Ship Painter Helper: Norma Mcgovern, nurse practitioner, who was essential for retraction, certified surgical assistant, and implantation of surgical devices. Anesthesia: Spinal (With Supplemental adductor block, ASA 3) Estimated blood loss (mL): 200 Tourniquet time (min): 0 (Not utilized) IV fluids (mL): 1,100 Urine output (mL): 250 Complications: None Findings: Severe degenerative Osteoarthritis left knee Condition: stable Disposition: PACU (Then to floor for postoperative rehabilitation and pain management) Brief History: This 77-year-old woman presented with complaints of severe left knee pain. She status post right total knee arthroplasty remotely. Today, the patient complains of pain and difficulties with activities of daily living secondary to her left total knee arthroplasty. She was seen in the office. Conservative measures such as injection therapies, physical therapies, and medications were not of benefit to her. Preoperatively, questions were answered and consents were signed. Procedure: The patient was brought to the operating theater, and after undergoing spinal anesthesia with MAC and supplemental adductor block, ASA 3, the left lower extremity was prepped with Dura-Prep and draped in usual fashion following placement of a tourniquet high on the leg. The leg was then draped free.? Tourniquet was not elevated during the case.? A surgical pause was performed, and at the time of the surgical pause, we confirmed the site and side of surgery. Additionally, we confirmed the appropriate and timely administration of preoperative antibiotics, Ancef 2 g and Transexemic acid 1 g.? The availability of equipment was confirmed, and the patient's identity was verbalized as well.? An additional transexemic acid 1 g will be given on the floor as well. Following the surgical pause, an incision was made centering over the patella continuing proximally and distally as necessary to allow access to the knee joint. Dissection continued through skin and soft tissues using a scalpel. Hemostasis was obtained using electrocautery. The skin incision was followed by a median parapatellar arthrotomy. The leg was extended and the patella was able to be displaced laterally without difficulty.? Medial release was initially accomplished to allow placement for the Valdemar array.? Appropriate arrays and markers were placed in appropriate position for use of the Valdemar.? Preoperative planning had been accomplished and was discussed in detail with the [facility] senior outside sales representative.? Intraoperative mapping of the femur and tibia was accomplished after the arrays were placed.? Internal markers were also placed.? Once we had accomplished the Valdemar mapping, we began the appropriate resections for placement of the prosthesis.? The plan was for a cruciate retaining left total knee arthroplasty.? Medial releases were accomplished prior to the surgical procedure to allow balancing of the knee. Once appropriate mapping had been accomplished retraction was established using manual retraction by surgical technicians and also the Valdemar leg positioner and retractors.? The knee was evaluated.? There was significant osteoarthritic change.? The tibia was cut first with the Valdemar.? Subsequently, appropriate bone resection of the femur was accomplished using the Valdemar.? The femur was sized to a size 2.? Osteophytes were removed prior to this portion of the procedure.? We had performed a medial release at the beginning of the procedure to allow for placement of the array and to allow for better planning with flexion and extension adjustments per Valdemar programming.? Following this resection, it was felt that appropriate size for the tibia was a size 2.? Tray was noted to fit nicely with good coverage.? Rim fit was accomplished with the size 2. A trial reduction was accomplished after osteophytes have been removed as well as the medial and lateral menisci.? We had removed the anterior cruciate ligament at the beginning of the case and preserved the posterior cruciate ligament.? Trial reduction was accomplished with a size 2 femoral posterior cruciate retaining component and a size 2 tibial tray with a size 2 x?9mm CS tibial bearing insert.? Alignment was felt to be appropriate. Initially, the knee was noted to be tight laterally compared with medially, therefore, a secondary cut was made to add a slight amount of Valgus to the tibial cut.Once this is been accomplished, the knee was placed through range of motion. It was stressed both in extension and flexion and felt to be well-balanced. Therefore, the chosen components were the size 2 femur, size 2 tibia, and a 2 x 9 mm CS tibial bearing insert. Trial components were removed after the femur had been drilled.? Prior to removal of the tibial tray which had been pinned in position with appropriate rotation as determined by the Valdemar plan, we broached the tibia.? Subsequently, the 4 drill holes were made for the prosthetic component.? All trial components were removed, and the wound was irrigated.? Plans were made for insertion of the prosthetic components.? Prior to this, the patella was manually prepared.? After resection of the articular surface with the patellar harvey, it was measured and measured a 29 mm patella.? We resected approximately 8 mm of patella.? Patellar height was restored with the patellar component. Once again, the wound was irrigated.? The Tritanium tibia was impacted into position.? The beaded femur was then impacted into position in a cementless fashion. The CS tibial insert was placed prior to placement of the femoral component. The patella was pressed into position with a patellar clamp.? Exparel was injected about the components deep and superficially.? The knee was then copiously irrigated with betadine and saline and suctioned dry.? Further irrigation was accomplished with saline following the Betadine.? Attention was then directed to closure. Closure was accomplished with 0 Vicryl and strata fix starting proximally and overlap with a strata fix starting distally in the fascial tissues.? This was followed by Surgiflo and vancomycin powder.? Following this, a 2-0 Monocryl was used in the subcutaneous tissues, and the skin was closed with skin dedrick.? Care was taken to assure an excellent subcutaneous as well as skin closure.? A sterile dressing was then placed consisting of Dermabond Prineo, OpSite, sterile soft roll including over the foot, and an Cristian wrap. The patient was returned the Recovery Room in a satisfactory condition. X-rays were obtained and reviewed there.? The patient will be discharged to the floor for postoperative rehabilitation and pain management. Related Problem List Diagnoses (1) Primary osteoarthritis of left knee:
[2023-01-31] MEDS: oxyCODONE 5 mg IR Tab/Cap PO ×2 (16:11→20:14)
--- NOTE | 2023-01-31 16:53 | ANE.PACU2 ---
Inpatient post-anesthesia follow up: Airway intact: Yes Vital signs: Temperature 97.6 F Pulse Rate 64 Respiratory Rate 17 Blood Pressure 162/88 Pulse Oximetry 96 Oxygen Delivery Me thod Room Air Oxygen Flow Rate 6 Fraction of Inspir ed Oxygen Hydration adequate: Yes Nausea and vomiting: No Pain level: 1 Mental status: Baseline
[2023-01-31] MEDS: chlorhexidine gluconate 0.12% Btl 473 mL 30 ML MUCOUS MEM ×2 (17:17→20:20)
[2023-01-31] MEDS: ferrous sulfate EC 325 mg Tablet PO (17:20)
[2023-01-31] MEDS: mupirocin oint 22 gm 1 APPLIC NASAL (17:20)
[2023-01-31] MEDS: calcium carbonate 500 mg Chew Tablet 1000 MG PO (17:20)
[2023-01-31] MEDS: iron polysaccharide complex 150 mg Capsule PO (17:21)
[2023-01-31] MEDS: losartan 50 mg Tablet 75 MG PO (17:21)
[2023-01-31] MEDS: sennosides-docusate Tablet 2 TAB PO (17:21)
[2023-01-31] MEDS: montelukast sodium 10 mg Tablet PO (20:14)
[2023-01-31] MEDS: citalopram 20 mg Tablet 10 MG PO (20:14)
[2023-01-31] MEDS: CELEcoxib 200 mg Capsule PO (20:14)
[2023-01-31] MEDS: gabapentin 300 mg Capsule 600 MG PO (20:15)
[2023-01-31] MEDS: nortriptyline 25 mg Capsule PO (21:46)
[2023-02-01] VITALS (9 sets, daily range): BP systolic 136–179; BP diastolic 74–86; PULSE 83–99; RESP 16–156; TEMP 36.6–37.1; O2SAT 92–96
[2023-02-01] MEDS: oxyCODONE 5 mg IR Tab/Cap PO ×3 (00:16→08:45)
[2023-02-01] MEDS: ceFAZolin 2,000 MG in sodium chloride 0.9% (plus) 50 ML 100 MG IV ×2 (01:39→11:13)
[2023-02-01] MEDS: acetaminophen 1,000 MG/100 ML PIGGYBACK 400 MG IV ×2 (01:39→08:14)
[2023-02-01 06:10] LABS: Basophils % 0.4 %; Eosinophils # 0.1 10^3/uL (0.0-0.8); Eosinophils % 1.9 %; Hematocrit 34.9 % (36-47); Lymphocytes # 1.1 10^3/uL (0.8-4.8); Lymphocytes % 20.1 %; Mean Corpuscular HGB Conc 32.4 g/dL (30-55); Mean Corpuscular Hemoglobin 30.8 pg (27-33); Mean Corpuscular Volume 95.1 fl (85-98); Monocytes # 0.6 10^3/uL (0.2-0.9); Monocytes % 10.9 %; Neutrophils # 3.77 10^3/uL (1.8-7.7); Neutrophils % 66.3 %; Nucleated Red Blood Cells % 0 %; Platelet Count 140 10^3/cmm (157-399); Red Blood Count 3.67 10^6/uL (3.85-5.65); Red Cell Distribution Width 13.7 % (12.1-15.1); White Blood Count 5.68 10^3/uL (3.29-11.43)
[2023-02-01] MEDS: gabapentin 300 mg Capsule PO ×2 (06:13→11:18)
[2023-02-01 07:06] LABS: Anion Gap 14.2 (5-19); Blood Urea Nitrogen 12 mg/dL (8-23); Calcium 8.7 mg/dL (8.5-10.5); Carbon Dioxide 23 mmol/L (22-29); Chloride 105 mmol/L (98-107); Glucose 122 mg/dL (65-115); Osmolality Calculated 287 mOsm/kg (285-295); Potassium 4.2 mmol/L (3.5-5.1); Sodium 138 mmol/L (136-145)
[2023-02-01] MEDS: multivitamin therapeutic Tablet 1 TAB PO (08:14)
[2023-02-01] MEDS: verapamil ER 180 mg Tablet PO (08:14)
[2023-02-01] MEDS: calcium carbonate 500 mg Chew Tablet 1000 MG PO (08:14)
[2023-02-01] MEDS: pantoprazole DR 40 mg Tablet PO (08:15)
[2023-02-01] MEDS: cholecalciferol (vitamin D3) 1,000 unit Tablet 1000 UNIT PO (08:15)
[2023-02-01] MEDS: sennosides-docusate Tablet 2 TAB PO (08:15)
[2023-02-01] MEDS: aspirin 325 mg EC Tablet PO (08:15)
[2023-02-01] MEDS: ferrous sulfate EC 325 mg Tablet PO (08:15)
[2023-02-01] MEDS: iron polysaccharide complex 150 mg Capsule PO (08:16)
[2023-02-01] MEDS: chlorhexidine gluconate 0.12% Btl 473 mL 30 ML MUCOUS MEM (08:16)
[2023-02-01] MEDS: potassium chloride ER 10 mEq Tablet PO (08:16)
[2023-02-01] MEDS: CELEcoxib 200 mg Capsule PO (08:16)
[2023-02-01] MEDS: FUROsemide 20 mg Tablet PO (08:16)
[2023-02-01] MEDS: mupirocin oint 22 gm 1 APPLIC NASAL (08:17)
[2023-02-01] MEDS: ondansetron 2 mg/ML SDV 2 mL 4 MG IVP (08:29)
--- NOTE | 2023-02-01 10:59 | PC.CHAP ---
Pastoral Care Encounter/Spiritual Assessment Type of Contact [] Declined draw press operator visit [] Patient/Family/Request visit [] Outpatient visit [] Follow-up visit [] Physician referral [] Code/Alert [x] Routine visit [] Staff referral [] Actively dying [] Patient sleeping [] Family support [] [] Out of room [] Palliative care [] [] Receiving care in room [] Pre-surgical visit [] Trauma [] Long length of stay [] ICU visit [] Other: Relational/Emotional Strength [] Patient feels connected with others/family/visitors/staff [] Distress [] Loneliness/isolation [] Abandonment Spirituality of Patient [] Person of Cynthia [] Attends Gnosticism of their Cynthia [] Believes in Prayer [] Reads Bible or Sikh materials [] There are Spiritual issues to be addressed Data Software Engineer Interventions [x] Prayer [] Active listening [] Non-anxious presence [] Spiritual/emotional support [] Crisis/trauma care [] Spiritual counseling [] Bereavement support [] Provided bereavement packet [] Provided Bible/devotional materials [] Provided toy/stuffed animal, coloring book to patient or family member [] Provided Communion [] Anointing/[place] [] Salvation [] Completed spiritual assessment [] Other: Impact on Illness or Injury [] Angry [] Fearful [] Anxious [] Often cries [] Exhaustion [] Unable to work [] Unable to attend rastafarian [] Unable to walk/stand [] Unable to read [] Unable to drive [] Unable to eat/drink [] Unable to sleep [] Unable to be with family [] Patient intubated [] Other: Summary Time spent with patient 10 min
[2023-02-01] MEDS: HYDROcodone-acetaminophen 10-325 mg Tablet 1 TAB PO ×2 (11:12→15:19)
--- NOTE | 2023-02-01 14:32 | PM.DCS ---
Discharge Providers Date of Admission: 01/31/23 14:12 Date of Discharge: February 01, 2023 Attending Provider at Admission: Keiry Mehta MD Attending Provider at Discharge: Keiry Mehta MD Primary Care Provider: Sondra Ndiaye MD Diagnoses at Discharge Discharge Diagnosis (1) Primary osteoarthritis of left knee: Status: Acute (2) Status post total right knee replacement not using cement: Status: Acute Permanent problem details: Date of procedure: January 31, 2023 Diagnosis: Primary osteoarthritis left knee Post-op findings: Significant degenerative osteoarthritic change with cartilage loss. Procedure done: Left total knee arthroplasty with Valdemar guidance Implants: The [employer] total knee system with a size 2 triathlon beaded cruciate retaining femur left, a triathlon titanium tibial component size 2 beaded, a triathlon X3 tibial bearing CS insert size 2 X 9 mm and a beaded triathlon titanium asymmetric patella size 29 x 9 mm Reason for Visit Reason for Visit: Brief History: This 77-year-old woman presented with complaints of severe left knee pain.? She status post right total knee arthroplasty remotely.? Today, the patient complains of pain and difficulties with activities of daily living secondary to her left total knee arthroplasty.? She was seen in the office.? Conservative measures such as injection therapies, physical therapies, and medications were not of benefit to her.? Preoperatively, questions were answered and consents were signed. Hospital Course Hospital Course Patient was admitted under observation status following same-day surgery for left total knee arthroplasty. The procedure was well-tolerated. The patient worked with physical therapy postoperatively, and pain was managed with oral pain medications. She was felt safe for discharge home. She is to follow-up with me in the office as scheduled. There were no complications. Physical Exam Const: COMMON NORMALS: no acute distress, average body habitus, patient oriented x3 and alert GENERAL APPEARANCE: cooperative and comfortable ORIENTATION/CONSCIOUSNESS: Yes awake HENMT: COMMON NORMALS: normocephalic and atraumatic HEAD & SCALP: normocephalic and atraumatic Eye: GENERAL EYE: appearance normal, both eyes and all related structures Chest: COMMONS NORMALS: normal inspection of the chest Resp: COMMON NORMALS: normal respiratory effort EFFORT & INSPECTION: Yes able to speak in complete sentences and Yes symmetric chest movement Extremity: LEFT LOWER EXTREMITY: Yes knee joint (Dressing is dry and intact.) Left knee: Yes palpation (Minimal tenderness to palpation.) and Yes neurovascular exam (Intact distally with no evidence of DVT.) Neuro: COMMON NORMALS: patient oriented x3 SENSORIUM/ORIENTATION: Yes alert Psych: COMMON NORMALS: mental status grossly normal APPEARANCE: Yes grossly normal ATTITUDE: Yes calm and Yes engaged ATTENTION/CONCENTRATION: Yes attention grossly intact Skin: COMMON NORMALS: no rashes or lesions noted GENERAL SKIN EXAM: no rashes or lesions noted Urinary Catheter Management: Stein: Cath Placed During This Visit: yes, but has since been removed by the nurse Reason for Continuing Indwelling Catheter: Decision to DC Catheter Urinary Catheter Date of Insertion: 01/31/23 Urinary Catheter Time of Insertion: 11:15 Date Urinary Catheter Removed: 01/31/23 Time Urinary Catheter Discontinued: 23:00 Discharge Data Studies Completed and Pending Completed Studies During Hospitalization Category Date Time Status XR knee LT 1-2V 90016 Urgent Exams 01/31/23 14:15 Completed Laboratory Results WBC 5.68 10^3/uL (3.29-11.43) 02/01/23 05:48 RBC 3.67 10^6/uL (3.85-5.65) L 02/01/23 05:48 Hgb 11.30 g/dL (11.27-16.99) 02/01/23 05:48 Hct 34.9 % (36-47) L 02/01/23 05:48 MCV 95.1 fl (85-98) 02/01/23 05:48 MCH 30.8 pg (27-33) 02/01/23 05:48 MCHC 32.4 g/dL (30-55) 02/01/23 05:48 RDW 13.7 % (12.1-15.1) 02/01/23 05:48 Plt Count 140 10^3/cmm (157-399) L 02/01/23 05:48 MPV 9.0 fL (7.4-10.4) 02/01/23 05:48 Neut % (Auto) 66.3 % 02/01/23 05:48 Lymph % (Auto) 20.1 % 02/01/23 05:48 [place] % (Auto) 10.9 % 02/01/23 05:48 Eos % (Auto) 1.9 % 02/01/23 05:48 Baso % (Auto) 0.4 % 02/01/23 05:48 Neut # (Auto) 3.77 10^3/uL (1.8-7.7) 02/01/23 05:48 Lymph # (Auto) 1.1 10^3/uL (0.8-4.8) 02/01/23 05:48 [place] # (Auto) 0.6 10^3/uL (0.2-0.9) 02/01/23 05:48 Eos # (Auto) 0.1 10^3/uL (0.0-0.8) 02/01/23 05:48 Baso # (Auto) 0.0 10^3/uL (0.0-0.1) 02/01/23 05:48 Nucleated RBC % (auto) 0 % 02/01/23 05:48 Nucleated RBCs # 0.0 /100WBC 02/01/23 05:48 Sodium 138 mmol/L (136-145) 02/01/23 05:48 Potassium 4.2 mmol/L (3.5-5.1) 02/01/23 05:48 Chloride 105 mmol/L (98-107) 02/01/23 05:48 Carbon Dioxide 23 mmol/L (22-29) 02/01/23 05:48 Anion Gap 14.2 (5-19) 02/01/23 05:48 BUN 12 mg/dL (8-23) 02/01/23 05:48 Creatinine 0.8 mg/dL (0.5-0.9) 02/01/23 05:48 GFR Calculation Not Reportable 02/01/23 05:48 Glucose 122 mg/dL (65-115) H 02/01/23 05:48 Calculated Osmolality 287 mOsm/kg (285-295) 02/01/23 05:48 Calcium 8.7 mg/dL (8.5-10.5) 02/01/23 05:48 Vitals Last Vital Signs Temp 98.4 F 02/01/23 11:21 Pulse 99 02/01/23 11:21 Resp 18 02/01/23 11:21 BP 136/86 02/01/23 11:21 Pulse Ox 96 02/01/23 11:21 O2 Del Method Room Air 02/01/23 11:21 O2 Flow Rate 6 01/31/23 14:05 Discharge Plan Discharge Patient Disposition: Home Health Service Condition: Stable Prescriptions: New celecoxib 200 mg Capsule 200 mg PO 1XD 30 Days Qty: 30 0RF aspirin 325 mg Tablet,Delayed Release (Dr/Ec) 325 mg PO DAILY 30 Days Qty: 0 0RF hydrocodone-acetaminophen 10-325 mg Tablet 1 tab PO Q4H PRN (Reason: Moderate Pain) 7 Days Qty: 30 0RF Continued gabapentin 300 mg capsule See Rx Instructions .ROUTE .COMPLEX Rx Instructions: 300 mg PO QAM, 300MG PO AT NOON AND 600MG PO BEDTIME citalopram 10 mg tablet 10 mg PO BEDTIME loratadine [Claritin] 10 mg tablet 10 mg PO BID nortriptyline 25 mg capsule 25 mg PO BEDTIME oxycodone-acetaminophen [Percocet] 5-325 mg tablet 1 tab PO TID PRN (Reason: Pain) (DME) Diabetic Shoes with 3 pairs of inserts See Rx Instructions .ROUTE .MEDSUPPLY Qty: 1 0RF Rx Instructions: As directed by Dona P & O potassium chloride 10 mEq tablet extended release 10 meq PO DAILY furosemide [Lasix] 20 mg tablet 20 mg PO DAILY Qty: 90 3RF albuterol sulfate 90 mcg/actuation HFA aerosol inhaler 2 puff INHALATION Q6H PRN (Reason: Shortness Of Breath) Qty: 8.5 3RF Breztri Aerosphere 160-9-4.8 mcg/actuation HFA aerosol inhaler 2 inh inhalation BID Qty: 10.7 3RF losartan 50 mg tablet 75 mg PO QPM Qty: 135 3RF [place] Chews 1 tab PO PRN PRN (Reason: Stomach Upset) mineral oil Oil 5 ml PO BEDTIME sennosides-docusate sodium [Senexon-S] 8.6-50 mg tablet 2 tab PO BEDTIME simvastatin 10 mg tablet 10 mg PO BEDTIME verapamil 180 mg tablet extended release 180 mg PO DAILY aspirin 81 mg Tablet,Delayed Release (Dr/Ec) 81 mg PO QAM montelukast 10 mg tablet 10 mg PO BEDTIME ipratropium bromide 21 mcg (0.03 %) spray,non-aerosol 2 spray INTRANASAL TID PRN (Reason: NASAL DRAINAGE) Probiotic 1 cap PO BID ketoconazole 2 % cream 1 applic topical BID PRN (Reason: Rash) fluticasone propionate [Flonase Allergy Relief] 50 mcg/actuation spray,suspension 2 spray INTRANASAL DAILY guaifenesin 100 mg/5 mL liquid 100 - 200 mg PO Q6H PRN (Reason: Congestion) nystatin 100,000 unit/mL suspension 10 ml PO Q6H Rx Instructions: SWISH AND SWALLOW ferrous sulfate 325 mg (65 mg iron) tablet 325 mg PO BID Tray Mag Zinc Plus D3 333 mg-133 unit -133 mg-5 mg Tablet 1 tab PO BID pantoprazole [Protonix] 40 mg tablet,delayed release (DR/EC) 40 mg PO DAILY acetaminophen 500 mg Capsule 1,500 mg PO BEDTIME Discharge Orders: Discharge Order (Routine); Ordered 02/01/23 Ordered By: Keiry Mehta Other Ambulatory Orders: DME: Walker (Order) Location: None Selected Ordered By: Keiry Mehta Referrals: [facility] [Outside] Keiry Mehta MD [Physician] - 02/15/23 9:15 am Discharge Diet: Advance as tolerated and Usual diet Discharge Activity: Increase activity as tolerated, Limit activity as instructed, Use walker/crutches as instructed and As per PT/OT instructions Patient Instructions: Oxycodone, Rapid Release (By mouth), Celecoxib (By mouth), Knee Arthroscopy (DC), Opioid Safety Activity Restrictions/Additional Instructions: Ice and elevation to left lower extremity. Range of motion and strengthening as well as ambulation and gait training per physical therapy. You may shower, but do not soak your knee in standing water. Maintain current dressing until it is removed in the office or comes off on its own. Discharge Attestations Time Spent in Discharge Care*: greater than 30 min Specific Discharge Activities: educating patient, educating and/or supporting family/caregiver, documenting/other paperwork and evaluating patient/reviewing data Quality Metrics Clinical Quality Measures [ No reported AMI, CVA or VTE this stay] Coding Level of Care Code Acute Code for Chg Fwd Diagnoses Primary osteoarthritis of left knee M17.12 Status post total right knee replacement not using cement Z96.651
== END 2023-02-01 16:18 | disposition home health service (06) ==
LOC: MEDSURG 14:13
PROVIDERS: Admitting Provider Specialist; PCP Internal Medicine; Visit Provider Specialist
PROC: 8E0Y0CZ Robotic Assisted Procedure of Lower Extremity, Open Approach (ICD-10-PCS; CPT 27447; principal; 2023-01-31 10:00)
DX: M17.11 Unilateral primary osteoarthritis, right knee (principal); K21.9 Gastro-esophageal reflux disease without esophagitis; I10 Essential (primary) hypertension; E78.5 Hyperlipidemia, unspecified; E11.40 Type 2 diabetes mellitus with diabetic neuropathy, unspecified; Z79.82 Long term (current) use of aspirin; Z85.3 Personal history of malignant neoplasm of breast; M79.7 Fibromyalgia; G47.33 Obstructive sleep apnea (adult) (pediatric)
CPT/HCPCS: 20985; 27447; 36415; 51702; 73560; 80048; 85025; 97116; 97161; 97165; 97530; C1776; C9290; G0378; J0131; J0690; J2405; J2704; J2795; J3370; J3490; J7030

== ENCOUNTER → 2023-02-06 15:04 | Outpatient (BNVA) | payer MEDICARE, OTHER, SELFPAY | PROVIDERS: PCP Internal Medicine; Visit Provider Nurse Practitioner | DX: Z96.652 Presence of left artificial knee joint (principal); M17.12 Unilateral primary osteoarthritis, left knee; W19.XXXA Unspecified fall, initial encounter | CPT/HCPCS: 73562; 73590; 99024 ==

== ENCOUNTER → 2023-02-15 09:19 | Outpatient (BNVA) | payer MEDICARE, OTHER, SELFPAY | PROVIDERS: PCP Internal Medicine; Visit Provider Nurse Practitioner | DX: Z96.652 Presence of left artificial knee joint (principal); Y92.009 Unspecified place in unspecified non-institutional (private) residence as the place of occurrence of the external cause; S93.402D Sprain of unspecified ligament of left ankle, subsequent encounter; W19.XXXD Unspecified fall, subsequent encounter; M17.12 Unilateral primary osteoarthritis, left knee | CPT/HCPCS: 73560; 73565; 73610; 99024 ==

== ENCOUNTER → 2023-03-08 13:57 | Outpatient (BNVA) | payer MEDICARE, OTHER, SELFPAY | PROVIDERS: PCP Internal Medicine; Visit Provider Nurse Practitioner | DX: M17.12 Unilateral primary osteoarthritis, left knee (principal); Z96.652 Presence of left artificial knee joint | CPT/HCPCS: 73560; 73565; 99024 ==

== ENCOUNTER → 2023-05-10 13:23 | Outpatient (BNVA) | payer MEDICARE, OTHER, SELFPAY | PROVIDERS: PCP Internal Medicine; Visit Provider Nurse Practitioner | DX: M17.12 Unilateral primary osteoarthritis, left knee (principal); Z96.652 Presence of left artificial knee joint | CPT/HCPCS: 73560; 73565; 99213 ==

== ENCOUNTER → 2023-05-16 13:24 | Outpatient (BNVA) | payer MEDICARE, OTHER, SELFPAY | PROVIDERS: PCP Internal Medicine; Visit Provider Nurse Practitioner Family | DX: L82.0 Inflamed seborrheic keratosis (principal); L57.8 Other skin changes due to chronic exposure to nonionizing radiation; D22.4 Melanocytic nevi of scalp and neck; L81.4 Other melanin hyperpigmentation | CPT/HCPCS: 17110; 99213 ==

== ENCOUNTER → 2023-07-24 10:48 | Outpatient (BNVA) | payer MEDICARE, SELFPAY | PROVIDERS: PCP Internal Medicine; Referring Provider Internal Medicine; Visit Provider Specialist | DX: Z96.652 Presence of left artificial knee joint (principal); M17.12 Unilateral primary osteoarthritis, left knee | CPT/HCPCS: 73560; 73565; 99213 ==

== ENCOUNTER 2023-08-04 10:38 | Outpatient (CLI) | payer MEDICARE, SELFPAY ==
--- NOTE | 2023-08-04 11:15 | USCV_ITS ---
Yanira Cespedes Age: 78 Gender: F : 1945 Exam Date: 08/04/2023 11:11 Ordering Phys: Nelson Hernandez M.D ([email or web address]) Technologist: KIMBERLY Exam Location: [facility] [place] Indication: AORTIC STENOSIS BP: 140 / 78 HR: 86 Rhythm: Sinus Technical Quality: Adequate MEASUREMENTS (Male / Female) Normal Values 2D ECHO LV Diastolic Diameter PLAX 5.3 cm 4.2 - 5.9 / 3.9 - 5.3 cm IVS Diastolic Thickness 1.1 cm 0.6 - 1.0 / 0.6 - 0.9 cm IVS Systolic Thickness 1.9 cm LVPW Diastolic Thickness 1.7 cm 0.6 - 1.0 / 0.6 - 0.9 cm LVPW Systolic Thickness 2.4 cm LVOT Diameter 2.0 cm LV Ejection Fraction 2D Teich 89.5 % LV Ejection Fraction MOD 2C 64.4 % LV Ejection Fraction 2C AL 65.8 % LA Diameter 3.2 cm RA Systolic Volume 4C AL 17.0 ml RA Systolic Volume 4C MOD 16.1 ml LA Sys Volume AL 28.9 cm cubed LA Sys Volume Index AL 16.3 cm cubed/m squared Aorta at Sinotubular Diameter 2.1 cm IVC Diameter 1.2 cm M-MODE LA Ao Ratio MM 1.0 AV Cusp Separation MM 1.1 cm DOPPLER AV Peak Velocity 208.0 cm/s LVOT Peak Velocity 128.0 cm/s AV Area Cont Eq vti 2.3 cm squared AV Area Cont Eq pk 1.9 cm squared MV Peak Velocity 162.0 cm/s MV Area PHT 3.3 cm squared Mitral E to A Ratio 0.9 TR Peak Velocity 271.0 cm/s TR Peak Gradient 29.4 mmHg TR Mean Velocity 227.0 cm/s TR Mean Gradient 21.7 mmHg TR Velocity Time Integral 103.0 cm TV Peak E Velocity 69.0 cm/s Right Atrial Pressure 3.0 mmHg Pulmonary Artery Systolic Pressu 32.4 mmHg PV Peak Velocity 110.0 cm/s RV Ejection Time 0.3 s FINDINGS Left Ventricle Left ventricle is normal in size. LV systolic function is normal with EF of 55 to 60%. No regional wall motion abnormalities are seen. Grade 1 diastolic dysfunction. Right Ventricle Normal in size and function. Right Atrium Normal in size Left Atrium Normal in size Mitral Valve Structurally normal mitral valve. Mild mitral regurgitation. Mild mitral stenosis Aortic Valve Aortic valve is thickened. Mild aortic stenosis with aortic valve area of 1.95 cm squared and mean gradient of 10.6 mmHg. Tricuspid Valve Mild tricuspid regurgitation. Pulmonary artery systolic pressure is normal. Pulmonic Valve Not well visualized Pericardium Normal Aorta Normal in size IVC Appears to be normal CONCLUSIONS LV systolic function is normal with EF 55 to 60%. Grade 1 diastolic dysfunction. Mild mitral regurgitation Mild aortic stenosis. Mild tricuspid regurgitation Compared to prior echocardiogram from 2021, no significant changes are seen Nelson Hernandez MD (Electronically Signed) Final Date: 12 Aug 2023 21:53 S
== END 2023-08-04 10:39 | disposition home or self-care (01) ==
PROVIDERS: PCP Internal Medicine; Visit Provider Internal Medicine
DX: I35.0 Nonrheumatic aortic (valve) stenosis (principal); I34.0 Nonrheumatic mitral (valve) insufficiency; I07.1 Rheumatic tricuspid insufficiency
CPT/HCPCS: 93306

== ENCOUNTER → 2023-09-08 11:21 | Outpatient (BNVA) | payer MEDICARE, SELFPAY | PROVIDERS: PCP Internal Medicine; Visit Provider Internal Medicine Pulmonary Disease | DX: J45.998 Other asthma (principal); J45.909 Unspecified asthma, uncomplicated; I11.0 Hypertensive heart disease with heart failure; I50.9 Heart failure, unspecified; G47.33 Obstructive sleep apnea (adult) (pediatric) | CPT/HCPCS: 99214 ==

== ENCOUNTER → 2023-11-20 11:46 | Outpatient (BNVA) | payer MEDICARE, SELFPAY | PROVIDERS: PCP Internal Medicine; Visit Provider Internal Medicine | DX: I11.0 Hypertensive heart disease with heart failure (principal); I50.9 Heart failure, unspecified; J44.9 Chronic obstructive pulmonary disease, unspecified; E78.5 Hyperlipidemia, unspecified | CPT/HCPCS: 99214 ==

== ENCOUNTER → 2023-11-23 13:52 | Outpatient (BNVA) | payer MEDICARE, SELFPAY | PROVIDERS: PCP Internal Medicine; Visit Provider Nurse Practitioner Family | DX: L82.0 Inflamed seborrheic keratosis (principal); L57.8 Other skin changes due to chronic exposure to nonionizing radiation; D22.4 Melanocytic nevi of scalp and neck; L81.4 Other melanin hyperpigmentation; M25.774 Osteophyte, right foot | CPT/HCPCS: 17110; 99213 ==

== ENCOUNTER → 2023-12-05 15:15 | Outpatient (BNVA) | payer MEDICARE, SELFPAY | PROVIDERS: PCP Internal Medicine; Visit Provider Internal Medicine Critical Care Medicine | DX: J98.4 Other disorders of lung (principal); J45.40 Moderate persistent asthma, uncomplicated; I50.32 Chronic diastolic (congestive) heart failure; G47.33 Obstructive sleep apnea (adult) (pediatric); E66.3 Overweight; Z71.82 Exercise counseling; Z68.27 Body mass index [BMI] 27.0-27.9, adult | CPT/HCPCS: 99214 ==

== ENCOUNTER → 2024-02-14 09:49 | Outpatient (BNVA) | payer MEDICARE, SELFPAY | PROVIDERS: PCP Internal Medicine; Visit Provider Podiatrist Foot & Ankle Surgery | DX: M79.671 Pain in right foot (principal); M21.41 Flat foot [pes planus] (acquired), right foot; M21.42 Flat foot [pes planus] (acquired), left foot; M19.071 Primary osteoarthritis, right ankle and foot; M21.621 Bunionette of right foot; M21.622 Bunionette of left foot | CPT/HCPCS: 73630; 99203 ==

== ENCOUNTER 2024-02-20 10:48 | Outpatient (CLI) | payer MEDICARE, SELFPAY ==
--- NOTE | 2024-02-20 10:51 | MM_ITS ---
WS: [id number] DIAGNOSTIC BILATERAL DIGITAL BREAST TOMOSYNTHESIS MAMMOGRAPHY WITH CAD HISTORY: YEARLY COMPARISON: 12/09/2022, 08/04/2021 TECHNIQUE: Bilateral craniocaudad, mediolateral oblique, and mediolateral views are submitted with to mostacos and ISSA. Computer aided detection utilized. Breast composition: There are scattered areas of fibroglandular density. Volume loss and postsurgical changes in the LEFT breast. Dystrophic calcifications developing towards 12:00. Overall appearance of the breast is similar to prior studies dating back and to 2018. Benign calcifications in each breast. MM/MM diag BI tomosynthesis [id number] IMPRESSION: BI-RADS: 2 - Benign. FOLLOW UP: 1 Year Follow-up
== END 2024-02-20 10:49 | disposition home or self-care (01) ==
LOC: RAD 10:49
PROVIDERS: PCP Internal Medicine; Visit Provider Internal Medicine
DX: Z12.31 Encounter for screening mammogram for malignant neoplasm of breast (principal); R92.323 Mammographic fibroglandular density, bilateral breasts; Z98.890 Other specified postprocedural states; R92.1 Mammographic calcification found on diagnostic imaging of breast
CPT/HCPCS: 77062; G0279

== ENCOUNTER → 2024-09-20 10:19 | Outpatient (BNVA) | payer MEDICARE, SELFPAY | PROVIDERS: PCP Internal Medicine; Referring Provider Internal Medicine; Visit Provider Nurse Practitioner Family | DX: Z96.611 Presence of right artificial shoulder joint (principal); M79.601 Pain in right arm | CPT/HCPCS: 73030; 73060; 99214 ==

== ENCOUNTER 2024-10-07 09:13 | Outpatient (RCR) | payer MEDICARE, SELFPAY | END 2024-10-07 23:59 | disposition home or self-care (01) | LOC: SPT 09:13 | PROVIDERS: PCP Internal Medicine; Visit Provider Nurse Practitioner Family | DX: Z98.890 Other specified postprocedural states (principal) | CPT/HCPCS: 97161 ==

== ENCOUNTER 2024-10-08 05:00 | Outpatient (RCR) | payer MEDICARE, SELFPAY | END 2024-11-07 23:59 | disposition home or self-care (01) | LOC: SPT 05:00 | PROVIDERS: PCP Internal Medicine; Visit Provider Nurse Practitioner Family | DX: Z98.890 Other specified postprocedural states (principal) | CPT/HCPCS: 97110 ==

== ENCOUNTER 2024-11-08 05:00 | Outpatient (RCR) | payer MEDICARE, SELFPAY | END 2024-12-06 09:29 | disposition home or self-care (01) | LOC: SPT 05:00 | PROVIDERS: PCP Internal Medicine; Visit Provider Nurse Practitioner Family | DX: Z98.890 Other specified postprocedural states (principal) | CPT/HCPCS: 97110; 97164 ==

== ENCOUNTER → 2024-11-11 09:46 | Outpatient (BNVA) | payer MEDICARE, SELFPAY | PROVIDERS: PCP Internal Medicine; Visit Provider Nurse Practitioner Family | DX: M25.511 Pain in right shoulder (principal); Z96.611 Presence of right artificial shoulder joint | CPT/HCPCS: 99214 ==

== ENCOUNTER → 2024-11-18 13:03 | Outpatient (BNVA) | payer MEDICARE, SELFPAY | PROVIDERS: PCP Internal Medicine; Visit Provider Internal Medicine | DX: I11.0 Hypertensive heart disease with heart failure (principal); I50.9 Heart failure, unspecified; I35.0 Nonrheumatic aortic (valve) stenosis; J44.9 Chronic obstructive pulmonary disease, unspecified; E78.5 Hyperlipidemia, unspecified | CPT/HCPCS: 99214 ==

== ENCOUNTER → 2024-11-25 10:55 | Outpatient (BNVA) | payer MEDICARE, SELFPAY | PROVIDERS: PCP Internal Medicine; Visit Provider Nurse Practitioner Family | DX: L81.4 Other melanin hyperpigmentation (principal); L57.8 Other skin changes due to chronic exposure to nonionizing radiation; D22.5 Melanocytic nevi of trunk; L82.1 Other seborrheic keratosis; L82.0 Inflamed seborrheic keratosis; R20.8 Other disturbances of skin sensation; Z78.9 Other specified health status; R58 Hemorrhage, not elsewhere classified; L53.8 Other specified erythematous conditions | CPT/HCPCS: 17110; 99213 ==

== ENCOUNTER 2024-12-16 10:56 | Outpatient (CLI) | payer MEDICARE, SELFPAY ==
--- NOTE | 2024-12-16 11:06 | XR_ITS ---
WS: [id number] Chest 2 views, 12/16/2024 Clinical Data: COPD/COUGH Comparison: Two-view chest, 06/24/2021 Findings: No nodules, masses or effusions are seen. The heart is normal. The pulmonary vascularity is not increased. No pneumonia or pneumothorax is seen. There is a pleural pericardial scar at the right cardiac border unchanged. The diaphragms are flattened. The aortic arch and descending thoracic aorta show tortuosity and minimal calcification. There are bilateral shoulder arthroplasties. XR/XR chest 2V* [id number] Impression: 1. Atherosclerosis. 2. Hyperinflation.
== END 2024-12-16 10:57 | disposition home or self-care (01) ==
PROVIDERS: PCP Internal Medicine; Visit Provider Internal Medicine
DX: J44.9 Chronic obstructive pulmonary disease, unspecified (principal); R05.9 Cough, unspecified; Q25.46 Tortuous aortic arch; I70.90 Unspecified atherosclerosis
CPT/HCPCS: 71046

== ENCOUNTER → 2024-12-26 10:26 | Outpatient (BNVA) | payer MEDICARE, SELFPAY | PROVIDERS: PCP Internal Medicine; Visit Provider Internal Medicine | DX: J45.50 Severe persistent asthma, uncomplicated (principal); J20.9 Acute bronchitis, unspecified; G47.33 Obstructive sleep apnea (adult) (pediatric); Z99.89 Dependence on other enabling machines and devices; J30.2 Other seasonal allergic rhinitis; J44.9 Chronic obstructive pulmonary disease, unspecified; T78.40XA Allergy, unspecified, initial encounter; Y99.9 Unspecified external cause status | CPT/HCPCS: 36415; 85025; 86003; 99214 ==

== ENCOUNTER 2025-01-10 12:31 | Outpatient (CLI) | payer MEDICARE, SELFPAY ==
--- NOTE | 2025-01-10 14:15 | USCV_ITS ---
Yanira Cespedes Age: 79 Gender: F : 1945 Exam Date: 01/10/2025 13:08 Ordering Phys: Nelson Hernandez M.D ([email or web address]) Technologist: DON Exam Location: [facility] [place] Indication: BP: 134 / 70 HR: 67 Rhythm: Sinus Technical Quality: Adequate MEASUREMENTS (Male / Female) Normal Values 2D ECHO LV Diastolic Diameter PLAX 4.4 cm 4.2 - 5.9 / 3.9 - 5.3 cm IVS Diastolic Thickness 1.3 cm 0.6 - 1.0 / 0.6 - 0.9 cm IVS Systolic Thickness 1.7 cm LVPW Diastolic Thickness 1.5 cm 0.6 - 1.0 / 0.6 - 0.9 cm LVPW Systolic Thickness 1.9 cm LVOT Diameter 2.1 cm LV Ejection Fraction 2D Teich 54.1 % LV Ejection Fraction MOD 4C 51.9 % LV Ejection Fraction MOD 2C 57.8 % LV Ejection Fraction 2C AL 57.0 % LA Diameter 4.2 cm RA Systolic Volume 4C AL 37.2 ml RA Systolic Volume 4C MOD 36.0 ml LA Sys Volume AL 47.0 cm cubed LA Sys Volume Index AL 26.6 cm cubed/m squared Aorta at Sinotubular Diameter 2.4 cm IVC Diameter 2.0 cm M-MODE LA Ao Ratio MM 1.3 AV Cusp Separation MM 1.3 cm DOPPLER AV Peak Velocity 173.0 cm/s LVOT Peak Velocity 102.0 cm/s AV Area Cont Eq vti 2.2 cm squared AV Area Cont Eq pk 2.0 cm squared MV Peak Velocity 136.0 cm/s MV Area PHT 6.2 cm squared Mitral E to A Ratio 1.4 TV Peak Velocity 117.0 cm/s TR Peak Velocity 159.0 cm/s TR Peak Gradient 10.1 mmHg TV Peak E Velocity 63.0 cm/s PV Peak Velocity 91.0 cm/s FINDINGS Left Ventricle Normal left ventricular size and systolic function, EF 55-60%. No regional wall motion abnormalities. Right Ventricle Normal in size and function Right Atrium Normal in size Left Atrium Normal in size IA Septum Grossly normal Mitral Valve Mitral annular calcification. Mild mitral regurgitation. Aortic Valve Thickened aortic valve. Mild aortic stenosis with mean gradient of 7mmHg. Tricuspid Valve Insufficient TR jet to calculate RVSP Pulmonic Valve Not well visualized Pericardium Normal Aorta Normal in size IVC Appears to be normal CONCLUSIONS LV systolic function is normal with EF of 55-60% Mild mitral regurgitation Mild aortic stenosis. Compared to prior echocardiogram from 2023, no significant changes are seen. Nelson Hernandez MD (Electronically Signed) Final Date: 12 January 2025 14:33 S
== END 2025-01-10 12:32 | disposition home or self-care (01) ==
LOC: RAD 12:39
PROVIDERS: PCP Internal Medicine; Visit Provider Internal Medicine
DX: I35.0 Nonrheumatic aortic (valve) stenosis (principal); I34.89 Other nonrheumatic mitral valve disorders; I34.0 Nonrheumatic mitral (valve) insufficiency
CPT/HCPCS: 93306

== ENCOUNTER → 2025-01-28 11:24 | Outpatient (BNVA) | payer MEDICARE, SELFPAY | PROVIDERS: PCP Internal Medicine; Visit Provider Internal Medicine | DX: G47.33 Obstructive sleep apnea (adult) (pediatric) (principal); Z99.89 Dependence on other enabling machines and devices; J45.50 Severe persistent asthma, uncomplicated; J30.2 Other seasonal allergic rhinitis; J40 Bronchitis, not specified as acute or chronic | CPT/HCPCS: 99214; Q3014 ==

== ENCOUNTER 2025-03-04 10:53 | Outpatient (CLI) | payer MEDICARE, SELFPAY ==
--- NOTE | 2025-03-04 10:58 | MM_ITS ---
WS: [id number] BILATERAL 3D TOMOSYNTHESIS DIGITAL DIAGNOSTIC MAMMOGRAPHY WITH CAD CLINICAL INFORMATION: HX OF BREAST CANCER HISTORY: LEFT lumpectomy COMPARISON: 2023 TECHNIQUE: Bilateral CC, MLO, and ML views. FINDINGS: Scattered fibroglandular densities bilaterally. Clustered coarse calcifications LEFT breast. Postoperative changes LEFT breast lumpectomy with parenchymal fibrosis and volume loss. Vascular calcifications. No suspicious focal mass, asymmetry, calcifications, or architectural distortion. No evidence of malignancy. MM/MM diag tomosynthesis [id number] IMPRESSION: DENSITY: There are scattered areas of fibroglandular density. BI-RADS: 2 - Benign. FOLLOW UP: 1 Year Follow-up Recommend return to annual diagnostic mammography.
== END 2025-03-04 10:54 | disposition home or self-care (01) ==
PROVIDERS: PCP Internal Medicine; Visit Provider Internal Medicine
DX: Z12.31 Encounter for screening mammogram for malignant neoplasm of breast (principal); R92.323 Mammographic fibroglandular density, bilateral breasts; R92.1 Mammographic calcification found on diagnostic imaging of breast; Z98.890 Other specified postprocedural states
CPT/HCPCS: 77062; G0279